=== PATIENT | female | born 1960 | race Caucasian/White ===

== ENCOUNTER → 2018-05-12 11:35 | Outpatient (CLI) | payer OTHER, SELFPAY ==
[2018-05-27 10:30] LABS: HPV APTIMA, High Risk Negative; HPV Reflexed? YES, CHARGE PATIENT
== END ==
PROVIDERS: Family Provider Family Medicine; PCP Family Medicine; Visit Provider Obstetrics & Gynecology
DX: Z12.4 Encounter for screening for malignant neoplasm of cervix (principal)
CPT/HCPCS: 87624; 88175; G0145

== ENCOUNTER → 2018-06-17 07:54 | Outpatient (CLI) | payer OTHER, SELFPAY ==
--- NOTE | 2018-06-17 07:57 | BI_ITS ---
MAMMOGRAPHY - BILATERAL SCREENING REASON FOR EXAM: Female, 57 years old. Routine annual screening examination. PERTINENT HISTORY: Non-contributory. TECHNIQUE: Digital bilateral breast tosin (3D mammographic acquisition) in the CC and MLO projections. 2-D mediolateral oblique (MLO) and craniocaudad (CC) views of both breasts were obtained. CAD: Full Field Digital Mammography with Computer Added Detection was performed. COMPARISON: Comparison is made with prior study dated May 14, 2017 and March 27, 2016. FINDINGS: Breast Composition: There are scattered areas of fibroglandular density. There are no dominant masses or suspicious calcifications. Stable benign-appearing bilateral axillary lymph nodes. No other significant abnormalities are identified. There has been no significant change since the prior study. BI/SCREENING MAMM (CAD), BILAT IMPRESSION: Stable bilateral screening mammogram. Yearly follow-up mammogram recommended. (A) ASSESSMENT CATEGORY: BIRADS Category 2: Benign. A letter regarding these results will be sent to the patient by the facility within 30 days. Approximately 10% of breast cancers are not detected by mammography. A normal mammogram should not delay biopsy of a clinically suspicious abnormality. [id number] Electronically Signed: Juni Harris MD at 14:02 EST Tel [phone], Service support ,
== END ==
PROVIDERS: Family Provider Family Medicine; PCP Family Medicine; Referring Provider Obstetrics & Gynecology; Visit Provider Obstetrics & Gynecology
DX: Z12.31 Encounter for screening mammogram for malignant neoplasm of breast (principal)
CPT/HCPCS: 77063; 77067

== ENCOUNTER 2018-06-28 17:25 | Emergency (ER) | payer OTHER, SELFPAY ==
[2018-06-28 17:26] VITALS: BP 144/70; PULSE 77; RESP 18; TEMP 36.4; O2SAT 98; BMI 26.6
--- NOTE | 2018-06-28 18:18 | CT_ITS ---
STUDY: CT FACIAL BONES WITHOUT CONTRAST REASON FOR EXAM: Female, 57 years old. Trauma RADIATION DOSAGE (If Supplied By Facility): CTDIvol = ( 29.38 ) mGy, DLP = ( 576.84 ) mGycm TECHNIQUE: The patient was scanned in a multi detector CT scanner. Sagittal and coronal images were reconstructed. Individualized dose optimization techniques were used for this CT. COMPARISON: None. FINDINGS: Normal soft tissue structures. There are postsurgical changes of the orbits.. Minimally displaced fractures of the nasal bones with soft tissue swelling. Normal anterior nasal spine. There is mucosal thickening within the hypoplastic maxillary sinuses as well as diffuse mucosal thickening of the ethmoid and frontal sinuses. CT/Sinus/Facial Bone IMPRESSION: Minimally depressed fractures of the nasal bones. No other acute facial bone fracture Electronically Signed: Ankit Alanis MD at 19:11 EST , Service support ,
[2018-06-28] MEDS: Diphth,Pertuss(Acell),Tet Vac 0.5 ML Vial IM (19:06)
--- NOTE | 2018-06-28 20:15 | ED.DCSUM_ITS ---
- ER Visit Summary Date of Service: 06/28/18 Chief Complaint: Facial injury History of Present Illness: The patient is a 57 F who had taken her dog out on his leash. When the dog saw the patient's he ran for him, pulling the patient forward and causing her to fall on the pavement. She complains of facial injury. She did not lose consciousness. She is not on anticoagulants. Physical Examination: Vital signs are unremarkable. Head neck examination reveals abrasions to the central forehead. She has moderate nasal edema. There is dried blood in the bilateral nares without septal hematoma. No C-spine tenderness is noted. Heart is regular rate and rhythm. Lungs sounds clear. Abdomen is soft nontender. Neuro exam is normal. Extremity examination was a superficial abrasion to the anterior right knee without bony tenderness. Test Results: CT the facial bones reveals minimally displaced fractures of the nasal bones. No other acute fracture noted. Emergency Department Course and Treatment: Patient has tetanus update provided. Because she did have epistaxis after her fall with nasal bone injury she will be covered with antibiotics, first dose given here. She will follow-up with ENT after swelling improves if she has cosmetic or wheezing concerns. Treatment Plan: [] Disposition: Discharge Impression: 1. Mechanical fall 2. Nasal bone fracture This note was generated with [employer] dictation software. It may contain incorrect words, spelling, and punctuation that were not noted in review of the chart prior to signing ED Disposition - Plan for ED Patient: Disposition: Home or Assisted Living Chief Complaint: Fall Instructions: ED Mechanical Fall, ED Fx Nasal Conf W X Ray Prescriptions: Cephalexin [Keflex] 500 mg PO Q6 #40 capsule Referrals: Darrell Tovar MD [STAFF PHYSICIAN] - As Needed
[2018-06-28] MEDS: Cephalexin 250 MG Capsule 500 MG PO (20:20)
[2018-06-28 20:23] VITALS: BP 124/78; PULSE 63; RESP 18; O2SAT 95
== END 2018-06-28 20:24 | disposition home or self-care (01) ==
PROVIDERS: Emergency Provider Emergency Medicine; Family Provider Family Medicine; PCP Family Medicine
DX: S02.2XXA Fracture of nasal bones, initial encounter for closed fracture (principal); W18.30XA Fall on same level, unspecified, initial encounter; Y93.K1 Activity, walking an animal; Y92.9 Unspecified place or not applicable; Y99.9 Unspecified external cause status; J45.909 Unspecified asthma, uncomplicated
CPT/HCPCS: 70486; 90471; 90715; 99283

== ENCOUNTER → 2019-06-30 15:32 | Outpatient (CLI) | payer OTHER, SELFPAY ==
--- NOTE | 2019-06-30 15:35 | RAD_ITS ---
STUDY: X-RAY - LEFT FOOT CLINICAL: Female, 58 years old. For a few weeks, no history of injury. TECHNIQUE: 3 view(s) of the foot. COMPARISON: None. FINDINGS: There is demineralization of the rear and midfoot bones. There is a plantar calcaneal spur. Normal visualized subtalar, talonavicular, calcaneocuboid, tarsal and tarsometatarsal articulations. There is demineralization of the metatarsi. Normal metatarsophalangeal joint of the great toe. Normal tibial and fibular sesamoid bones. Normal interphalangeal joint of the great toe. Normal phalanges of the great toe. Normal second through fifth metatarsophalangeal joints. Narrowing of the interphalangeal joints otherwise normal phalanges of the lesser toes. The soft tissue structures are unremarkable. There is no demonstrated fracture. RAD/Foot min 3 Views IMPRESSION: Diffuse osteopenia along with mild degenerative disease as described above. Plantar calcaneal spur. No acute fracture or subluxation. Electronically Signed: Arlette Canseco MD at 7:24 EST , Service support ,
== END ==
PROVIDERS: Family Provider Family Medicine; PCP Family Medicine; Referring Provider Family Medicine; Visit Provider Family Medicine
DX: M79.672 Pain in left foot (principal)
CPT/HCPCS: 73630

== ENCOUNTER → 2019-07-21 07:34 | Outpatient (CLI) | payer OTHER, SELFPAY ==
--- NOTE | 2019-07-21 07:36 | BI_ITS ---
MAMMOGRAPHY - BILATERAL SCREENING REASON FOR EXAM: Female, 58 years old. Routine annual screening examination. PERTINENT HISTORY: Non-contributory. TECHNIQUE: Digital bilateral breast maría elena (3D mammographic acquisition) in the CC and MLO projections. 2-D mediolateral oblique (MLO) and craniocaudad (CC) views of both breasts were obtained. CAD: Full Field Digital Mammography with Computer Added Detection was performed. COMPARISON: Comparison is made with prior examination dated June 17, 2018 and May 14, 2017. FINDINGS: Breast Composition: There are scattered areas of fibroglandular density. There are no dominant masses or suspicious calcifications. Stable benign-appearing right axillary lymph nodes. No other significant abnormalities are identified. There has been no significant change since the prior study. BI/SCREEN MAMM (CAD) W/MARÍA ELENA BILAT IMPRESSION: Stable bilateral screening mammogram. Yearly follow-up mammogram recommended. (A) ASSESSMENT CATEGORY: BIRADS Category 2: Benign. A letter regarding these results will be sent to the patient by the facility within 30 days. Approximately 10% of breast cancers are not detected by mammography. A normal mammogram should not delay biopsy of a clinically suspicious abnormality. [id number] Electronically Signed: Juni Harris, at 9:11 EST , Service support ,
== END ==
PROVIDERS: Family Provider Family Medicine; PCP Family Medicine; Referring Provider Obstetrics & Gynecology; Visit Provider Obstetrics & Gynecology
DX: Z12.31 Encounter for screening mammogram for malignant neoplasm of breast (principal)
CPT/HCPCS: 77063; 77067

== ENCOUNTER → 2019-10-27 | Outpatient (CLI) | payer OTHER, SELFPAY ==
--- NOTE | 2019-10-27 10:13 | RAD_ITS ---
STUDY: X-RAY CHEST REASON FOR EXAM: Female, 59 years old. COUGH AND SOB X 2 WEEKS. TECHNIQUE: PA and lateral views of the chest. COMPARISON: None. FINDINGS: Hyperinflation. Minimal increase in markings at the left lung base suggestive of linear atelectasis and/or scarring. Calcified granulomas. There is no demonstrated pleural abnormality. Normal size heart. Normal mediastinum and peg. Normal visualized pulmonary arteries. Normal visualized aortic arch and descending thoracic aorta. Normal visualized thoracic spine. Normal visualized ribs, clavicles, and shoulders. There is no demonstrated abnormality of the visualized soft tissue structures of the upper abdomen. RAD/Chest PA and Lateral IMPRESSION: Hypoinflation. Mild increased linear marking at the left lung base suggestive of linear atelectasis and/or scarring. Electronically Signed: Juni Harris, at 10:42 EDT , Service support ,
== END | disposition home or self-care (01) ==
LOC: MTRAD 10:12
PROVIDERS: PCP Family Medicine; Referring Provider Family Medicine; Visit Provider Family Medicine
DX: J45.901 Unspecified asthma with (acute) exacerbation (principal)
CPT/HCPCS: 71046

== ENCOUNTER → 2020-07-11 | Outpatient (CLI) | payer OTHER, SELFPAY ==
[2020-07-16 09:51] LABS: HPV Reflexed? NOT INDICATED
== END | disposition home or self-care (01) ==
LOC: LABSPEC 15:25
PROVIDERS: PCP Family Medicine; Visit Provider Obstetrics & Gynecology
DX: Z12.4 Encounter for screening for malignant neoplasm of cervix (principal)
CPT/HCPCS: 88175; G0145

== ENCOUNTER → 2020-08-30 13:53 | Outpatient (CLI) | payer OTHER, SELFPAY ==
--- NOTE | 2020-08-30 13:55 | BI_ITS ---
MAMMOGRAPHY - BILATERAL SCREENING REASON FOR EXAM: Female, 59 years old. Routine annual screening examination. PERTINENT HISTORY: Non-contributory. TECHNIQUE: Digital bilateral breast maría elena (3D mammographic acquisition) in the CC and MLO projections. 2-D mediolateral oblique (MLO) and craniocaudad (CC) views of both breasts were obtained. CAD: Full Field Digital Mammography with Computer Added Detection was performed. COMPARISON: Comparison is made with prior study dated 07/21/2019 and 06/17/2018. FINDINGS: Breast Composition: There are scattered areas of fibroglandular density. There are no dominant masses or suspicious calcifications. There is a 4.3 mm x 2.8 cm well-defined nodule in the deep upper lateral aspect of the right breast a central notch suggestive of a small lymph node. No other significant abnormalities are identified. There has been no significant change since the prior study. BI/SCRN MAMM (CAD)W/MARÍA ELENA BILAT IMPRESSION: Stable bilateral screening mammogram. Yearly follow-up mammogram recommended. (A) ASSESSMENT CATEGORY: BIRADS Category 2: Benign. A letter regarding these results will be sent to the patient by the facility within 30 days. Approximately 10% of breast cancers are not detected by mammography. A normal mammogram should not delay biopsy of a clinically suspicious abnormality. [id number] Electronically Signed: Juni Harris MD at 14:40 EST , Service support ,
== END ==
PROVIDERS: PCP Family Medicine; Referring Provider Obstetrics & Gynecology; Visit Provider Obstetrics & Gynecology
DX: Z12.31 Encounter for screening mammogram for malignant neoplasm of breast (principal)
CPT/HCPCS: 77063; 77067

== ENCOUNTER 2020-08-30 21:57 | Emergency (ER) | payer OTHER, SELFPAY ==
[2020-08-30 21:57] VITALS: BP 128/73; PULSE 79; RESP 18; TEMP 35.8; O2SAT 96; BMI 25.4
[2020-08-30] MEDS: Morphine 4 MG/ML Syringe IV ×2 (22:15→23:12)
[2020-08-30] MEDS: Ondansetron 4 MG/2 ML Vial IV ×2 (22:17→23:12)
[2020-08-30] MEDS: 0.9% Normal Saline 1,000 ML 250 ML IV (22:22)
--- NOTE | 2020-08-30 22:50 | ED.VISSUMM ---
- ER Visit Summary Date of Service: 08/30/20 Chief Complaint: Left flank pain History of Present Illness: The patient is a [address] Ott. She reports that at 9:00 this evening she had abrupt onset of a left flank pain that radiates into the left lower quadrant. 10 a 10 at worst 9-10 currently. Worsened by nothing relieved by nothing. She is been nausea and vomited twice. No blood in her emesis. No diarrhea. She has had dysuria since this began. States this is similar to when she had kidney stones in the past. Physical Examination: Vitals: Stable. Afebrile. General: Well-nourished and well-developed. Head: Normocephalic atraumatic. Neck: Supple, no lymphadenopathy. No JVD. Nontender. Cardiovascular: Regular rate and rhythm. No murmurs. Respiratory: No respiratory distress. Clear to auscultation bilaterally. Abdominal: Soft, mild left lower quadrant tenderness to palpation, nondistended, normal bowel sounds. No guarding, rebound, or peritoneal signs. Back: Nontender. Extremities: Nontender, no edema. Skin: Normal color, no rash. Neurologic: Alert and oriented ?3. Cranial nerves II through XII are intact. Normal strength and sensation. Psych: Normal affect. Test Results: Urinalysis shows 25-50 red blood cells, occult blood, leukocyte esterase. Clinical Impression(s) from Imaging Studies Abdomen/Pelvis CT 08/30/20 23:02 IMPRESSION: Mild left hydronephrosis and proximal left ureter. Stone in the left upper ureter as above. Nonvisualized spleen. Remainder is within normal limits. Electronically Signed: Martin Carrillo DO at 23:24 EST Tel , Service support , Emergency Department Course and Treatment: Patient had an IV placed. She was given Toradol, morphine and Zofran IV. She is resting more comfortably. Treatment Plan: Patient will be discharged with naproxen, Percocet, and Zofran. Instructed to follow-up with Dr. Patel in 1 week if she has not passed the stone. Return to the emergency department for any worsening symptoms. Disposition: To home in improved and stable condition. Impression: 1. Left ureterolithiasis. This note was generated with [employer] dictation software. It may contain incorrect words, spelling, and punctuation that were not noted in review of the chart prior to signing ED Disposition - Plan for ED Patient: Instructions: ED Kidney Stone w/ Colic Prescriptions: Naproxen [Naprosyn] 500 mg PO BID #14 tab Oxycodone HCl/Acetaminophen [Percocet 5/325] 1 tab PO Q6H PRN PRN 5 Days #20 tab PRN Reason: Pain Score 6-10 Ondansetron [Zofran Odt] 4 mg PO Q8H PRN PRN #10 tab PRN Reason: Nausea Referrals: Ignacio Patel MD [STAFF PHYSICIAN] - 1 Week if not improving
--- NOTE | 2020-08-30 23:02 | CT_ITS ---
STUDY: CT ABDOMEN AND PELVIS WITHOUT CONTRAST REASON FOR EXAM: Female, 59 years old. LEFT FLANK PAIN STARTED TONIGHT. HX OF [place] RADIATION DOSAGE (If Supplied By Facility): CTDIvol = ( 7.69 ) mGy, DLP = ( 399.54 ) mGycm TECHNIQUE: Transaxial images were obtained from the dome of the diaphragm to the symphysis pubis without oral contrast, and without intravenous contrast. Sagittal and coronal images were reconstructed. Individualized dose optimization techniques were used for this CT. COMPARISON: None. FINDINGS: The visualized lung bases are unremarkable. The visualized portions of the heart are within normal limits. Normal liver. Normal gallbladder and extrahepatic biliary system. Nonvisualized spleen. Normal pancreas. Normal bilateral adrenal glands. Normal right kidney. Mild left hydronephrosis and left ureter. Stone in the upper left ureter measuring 4.9 mm. Normal visualized stomach. Normal small intestine. Normal colon. The appendix is visualized and appears normal. Normal abdominal aorta. Normal inferior vena cava. Normal retroperitoneum. Normal urinary bladder. Normal visualized uterus. Normal abdominal wall. Normal osseous structures. CT/Abdomen/Pelvis without Cont IMPRESSION: Mild left hydronephrosis and proximal left ureter. Stone in the left upper ureter as above. Nonvisualized spleen. Remainder is within normal limits. Electronically Signed: Martin Carrillo DO at 23:24 EST Tel , Service support ,
[2020-08-30 23:19] VITALS: BP 117/73; PULSE 71; RESP 20; O2SAT 97
[2020-08-30 23:31] LABS: Bacteria 0 SEEN /hpf (None Seen); Mucous, Urine 0 SEEN /hpf (<or=2+)
[2020-08-30] MEDS: Ketorolac 15 MG/ML Vial IV (23:33)
[2020-08-30 23:42] LABS: Color, Urine Yellow (Yellow); Glucose, Dipstick Normal (Normal); Ketone-Dipstick Negative (Negative); Leukocyte Esterase-Dipstick 100 /ul (Negative); Nitrite-Dipstick Negative (Negative); Occult Blood-Urine 250 /ul (Negative); Protein-Dipstick Negative (Negative); Urine Bilirubin Dipstick Negative (Negative); Urine Clarity Sl. Cloudy (Clear); Urine Urobilinogen Normal (Normal)
[2020-08-30 23:53] LABS: Red Blood Cells-Urine 25-50 SEEN /hpf (0-5); Squamous Epithelial Cells - UA 0-5 SEEN /hpf (5-10); White Blood Cells 0-5 SEEN /hpf (0-5)
[2020-08-31 00:11] VITALS: BP 107/70; PULSE 70; RESP 16; O2SAT 99
== END 2020-08-31 00:15 | disposition home or self-care (01) ==
LOC: ED 23:12
PROVIDERS: Emergency Provider Emergency Medicine; PCP Family Medicine
DX: N13.2 Hydronephrosis with renal and ureteral calculous obstruction (principal); J45.909 Unspecified asthma, uncomplicated; Z87.442 Personal history of urinary calculi; Z79.51 Long term (current) use of inhaled steroids
CPT/HCPCS: 74176; 81001; 96361; 96374; 96375; 96376; 99282; J7030; A4216; J2405

== ENCOUNTER → 2020-10-22 12:16 | Outpatient (CLI) | payer OTHER, SELFPAY ==
--- NOTE | 2020-10-22 12:27 | RAD_ITS ---
STUDY: X-RAY - ABDOMEN/PELVIS REASON FOR EXAM: Female, 60 years old. URINARY CALCULUS TECHNIQUE: Single AP view of the abdomen / pelvis. COMPARISON: Comparison is made with prior study of 04/23/2016. FINDINGS: Mild increased markings at the left lung base suggestive of either linear atelectasis and/or scarring. There is a moderate amount of colonic fecal material. The visualized liver, spleen and kidneys are grossly normal in size and morphology. Normal soft tissue structures. There are degenerative changes of the visualized lumbar spine. RAD/Abdomen Single View IMPRESSION: Moderate amount of fecal material is seen in the colon. Electronically Signed: Juni Harris MD at 10:01 EDT , Service support ,
[2020-10-22 15:27] LABS: Absolute Lymphocyte Count 2.86 X10^3/uL (0.83-4.51); Absolute Neutrophil Count 3.7 X10^3/uL (2.0-7.7); Basophil# 0.09 X10^3/uL; Basophil% 1.1 % (0-1); Eosinophil# 0.73 X10^3/uL; Eosinophils% 8.9 % (0-5); Hematocrit 41.6 % (37-47); Hemoglobin 13.7 g/dL (12.0-15.0); Lymphocyte # 2.86 X10^3/ul (4.0); Lymphocyte % 34.8 % (19-41); Mean Corp Hgb Conc 32.9 g/dL (32-36); Mean Corpuscular Hgb 31.3 pg (27.0-32.0); Mean Platelet Vol. 10.8 fl (6.2-12.0); Monocyte% 9.7 % (0-10); NRBC Flagged by Analyzer 0 % (0-5); Neutrophil # 3.72 X10^3/uL (2.7-7.7); Neutrophil % 45.4 % (47-70); Platelet Count 516 K/mm3 (150-450); RBC Distribution Width CV 12.8 % (11.6-14.6); RBC Distribution Width SD 44.1 fl (35.1-43.9); Red Blood Count 4.38 M/mm3 (4.2-5.4); White Blood Count 8.2 K/mm3 (4.4-11.0)
[2020-10-22 15:53] LABS: ALB/GLOB Ratio 1.2 RATIO (0.9-2.4); AST(SGOT) 30 U/L (15-37); Alanine Aminotransfer ALT/SGPT 23 U/L (13-56); Alkaline Phosphatase 82 U/L (45-117); Anion Gap 6 (5-15); BUN 12 mg/dL (7-18); BUN/Creat Ratio 18.9 RATIO (10-20); Chloride 104 mmol/L (98-107); Cholesterol 189 mg/dL (200); Creatinine, Serum 0.64 mg/dL (0.55-1.02); EST Glomerular Filtration Rate 101 mL/min (>60); Est Glom Filt Rate - Afr Amer 122 mL/min (>60); Globulin 3.2 g/dL (2.2-4.2); Glucose 83 mg/dL (74-106); High Density Lipoprotein 81 mg/dL; Potassium 4.1 mmol/L (3.5-5.1); Protein, Total 7.2 g/dL (6.4-8.2); Sodium Level 139 mmol/L (136-145); Triglycerides 74 mg/dL; Very Low Density Lipoprotein 15 mg/dL (5-40)
== END ==
PROVIDERS: PCP Family Medicine; Referring Provider Family Medicine; Visit Provider Family Medicine
DX: N20.9 Urinary calculus, unspecified (principal); J45.40 Moderate persistent asthma, uncomplicated; Z13.220 Encounter for screening for lipoid disorders
CPT/HCPCS: 36415; 74018; 80053; 80061; 85025

== ENCOUNTER → 2020-10-24 14:22 | Outpatient (CLI) | payer OTHER, SELFPAY | PROVIDERS: PCP Family Medicine; Referring Provider Nurse Practitioner Adult Health; Visit Provider Nurse Practitioner Adult Health | DX: R35.0 Frequency of micturition (principal) | CPT/HCPCS: 87086; 87088 ==

== ENCOUNTER → 2020-11-14 15:04 | Outpatient (CLI) | payer OTHER, SELFPAY ==
--- NOTE | 2020-11-14 15:11 | CT_ITS ---
STUDY: CT ABDOMEN AND PELVIS WITHOUT CONTRAST REASON FOR EXAM: Female, 60 years old. CALCULUS OF URETER RADIATION DOSAGE (If Supplied By Facility): CTDIvol = ( 6.73 ) mGy, DLP = ( 302.60 ) mGycm TECHNIQUE: Transaxial images were obtained from the dome of the diaphragm to the symphysis pubis without oral contrast, and without intravenous contrast. Sagittal and coronal images were reconstructed. Individualized dose optimization techniques were used for this CT. COMPARISON: 08/30/2020 FINDINGS: The visualized lung bases are unremarkable. The visualized portions of the heart are within normal limits. Normal liver. Normal gallbladder and extrahepatic biliary system. 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 Normal pancreas. Normal bilateral adrenal glands. Normal right kidney. Normal left kidney. Normal visualized stomach. Normal small intestine. Normal colon. The appendix is visualized and appears normal. Normal abdominal aorta. Normal inferior vena cava. Normal retroperitoneum. Normal urinary bladder. Normal abdominal wall. Normal osseous structures. CT/Abdomen/Pelvis without Cont IMPRESSION: Normal unenhanced CT of the abdomen and pelvis. No renal or ureteral stone. Electronically Signed: Pete Deras MD at 16:00 EDT Tel , Service support ,
== END ==
PROVIDERS: PCP Family Medicine; Visit Provider Urology
DX: N20.1 Calculus of ureter (principal)
CPT/HCPCS: 74176

== ENCOUNTER 2021-10-17 08:13 | Outpatient (CLI) | payer OTHER, SELFPAY ==
--- NOTE | 2021-10-17 08:32 | BI_ITS ---
MAMMOGRAPHY - BILATERAL SCREENING REASON FOR EXAM: Female, 61 years old. Routine annual screening examination. PERTINENT HISTORY: Non-contributory. TECHNIQUE: Digital bilateral breast maría elena (3D mammographic acquisition) in the CC and MLO projections. 2-D mediolateral oblique (MLO) and craniocaudad (CC) views of both breasts were obtained. CAD: Full Field Digital Mammography with Computer Added Detection was performed. COMPARISON: Comparison is made with prior study dated 08/30/2020 and 07/21/2019. FINDINGS: Breast Composition: There are scattered areas of fibroglandular density. There are no dominant masses or suspicious calcifications. Stable 4.3 mm x 2.8 mm well-defined nodule in the upper lateral aspect of the right breast. This most likely represents a small benign appearing lymph node. No other significant abnormalities are identified. There has been no significant change since the prior study. BI/SCRN MAMM (CAD)W/MARÍA ELENA BILAT IMPRESSION: Stable bilateral screening mammogram. Yearly follow-up mammogram recommended. (A) ASSESSMENT CATEGORY: BIRADS Category 2: Benign. A letter regarding these results will be sent to the patient by the facility within 30 days. Approximately 10% of breast cancers are not detected by mammography. A normal mammogram should not delay biopsy of a clinically suspicious abnormality. [id number] Electronically Signed: Juni Harris MD at 9:29 EST ,
== END 2021-10-17 23:59 | disposition home or self-care (01) ==
LOC: OPBI 08:30
PROVIDERS: PCP Family Medicine; Referring Provider Obstetrics & Gynecology; Visit Provider Obstetrics & Gynecology
DX: Z12.31 Encounter for screening mammogram for malignant neoplasm of breast (principal)
CPT/HCPCS: 77063; 77067

== ENCOUNTER → 2022-10-01 | Outpatient (CLI) | payer OTHER, SELFPAY ==
[2022-10-08 18:14] LABS: HPV APTIMA, High Risk Negative (Negative)
== END | disposition home or self-care (01) ==
LOC: LABSPEC 14:15
PROVIDERS: PCP Family Medicine; Visit Provider Obstetrics & Gynecology
DX: Z12.4 Encounter for screening for malignant neoplasm of cervix (principal)
CPT/HCPCS: 87624; 88175; G0145

== ENCOUNTER → 2022-10-23 | Outpatient (CLI) | payer OTHER, SELFPAY ==
--- NOTE | 2022-10-23 10:30 | BI_ITS ---
MAMMOGRAPHY - BILATERAL SCREENING 3-D TOMOSYNTHESIS REASON FOR EXAM: Female, 62 years old. Routine screening PERTINENT HISTORY: No significant family history. TECHNIQUE: 2-D mammograms and 3-D Tomosynthesis of the breast (s) were performed. CAD was performed. COMPARISON: 10/17/2021 FINDINGS: The breast composition is composed of scattered fibroglandular density. Scattered benign calcifications are seen. No dense spiculated masses or suspicious microcalcifications are identified. No architectural distortion is identified. There is no skin thickening or retraction. There has been no significant change since the prior study. BI/SCRN MAMM (CAD)W/MARÍA ELENA BILAT IMPRESSION: No mammographic signs of malignancy. Routine yearly mammograms recommended. ASSESSMENT CATEGORY: BIRADS Category 2: Benign. A letter regarding these results will be sent to the patient by the facility within 30 days. FOLLOW UP RECOMMENDATION: Yearly follow up mammogram recommended. (A) Approximately 10% of breast cancers are not detected by mammography. A normal mammogram should not delay biopsy of a clinically suspicious abnormality. Electronically Signed: Luis Estrada MD at 12:11 EDT ,
== END | disposition home or self-care (01) ==
LOC: OPBI 10:29
PROVIDERS: PCP Family Medicine; Referring Provider Obstetrics & Gynecology; Visit Provider Obstetrics & Gynecology
DX: Z12.31 Encounter for screening mammogram for malignant neoplasm of breast (principal)
CPT/HCPCS: 77063; 77067

== ENCOUNTER 2022-12-10 08:45 | Day surgery (SDC) | payer OTHER, SELFPAY ==
[2022-12-10] VITALS (7 sets, daily range): BP systolic 80–104; BP diastolic 43–64; PULSE 60–81; RESP 16–18; TEMP 36.2–36.6; O2SAT 99–100; BMI 24.2
[2022-12-10] MEDS: Lactated Ringers 1,000 ML 15 ML IV (09:23)
--- NOTE | 2022-12-10 09:34 | HP.PCM_ITS ---
HPI - General General Date of Admission: 12/10/22 Date of Service: 12/10/22 Chief Complaint: Screening colonoscopy HPI Narrative MYRIAM STEVENS, is a 62 F who presents today for a surveillance colonoscopy. She had a colonoscopy approximately 5 years ago and was discovered to have a few polyps that were adenomatous. She did not have any other abnormalities that were seen on that optical colonoscopy. She does not have any abdominal pain. She denies any cramping. She does not have any chest pain shortness of breath. Overall she is in very good health. COUNT INCLUDES THE [facility] Medical History (Updated 12/07/22 @ 15:22 by Alba Alvares) Allergic rhinitis, unspecified Asthma COVID-19 Gastric reflux History of colon polyps History of shingles History of steroid therapy History of urinary calculi Insomnia, unspecified Kidney stones Moderate persistent asthma, uncomplicated Post-menopausal Wears contact lenses Home Medications albuterol sulfate 90 mcg/actuation aerosol inhaler (Ventolin HFA) 1 - 2 puff inhalation Q4H PRN PRN Shortness Of Breath 03/26/15 [History Last Taken 06/19/16 05:00] montelukast 10 mg tablet 10 mg PO DAILY 01/16/16 [History Last Taken Unknown] multivitamin with folic acid 400 mcg tablet (Thera) 1 tab PO DAILY 01/16/16 [History Last Taken Unknown] trazodone 50 mg tablet 50 mg PO QHS 08/30/20 [History Last Taken Unknown] tiotropium bromide 18 mcg capsule with inhalation device (Spiriva with HandiHaler) 1 cap inhalation DAILY 01/06/22 [History Last Taken Unknown] fluticasone 250 mcg-salmeterol 50 mcg/dose blistr powdr for inhalation (Advair Diskus) 2 inh inhalation BID 12/07/22 [History Last Taken 12/10/22 06:15] Allergy/AdvReac Type Severity Reaction Status Date / Time prednisone AdvReac Other Verified 12/10/22 09:09 Family History Grandmother Alzheimer disease Heart disease Grandfather Lung cancer Mother Heart disease Father CVA (cerebral vascular accident) Surgical History (Updated 12/07/22 @ 15:22 by Alba Alvares) History of extraction of renal calculus History of splenectomy History of tonsillectomy and adenoidectomy History of tubal ligation Hx of cataract extraction Hx of section Hx of colonoscopy Hx of nasal polypectomy Social History (Updated 10/02/22 @ 08:13 by Lizeth Shaver) household members: spouse Smoking Status: Never smoker alcohol intake: never ROS Review of Systems ROS Unobtainable: other Constitutional Constitutional: Denies fatigue, fever(s), poor appetite, weight gain or weight loss ENT HEENT: Denies mouth lesions Cardiovascular Cardiovascular: Denies abdominal bloating, abdominal edema or abdominal pain Respiratory/Chest Respiratory/Chest: Denies change in mental status, change in phlegm color, chest congestion or chest tightness Gastrointestinal Gastrointestinal: Denies belching, bloating, change in bowel habits, change in stool character, chewing difficulty, coffee ground emesis, constipation, cramping, diarrhea, dyspepsia, dysphagia, early satiety, excessive flatus, fecal incontinence, heartburn, hematemesis, hematochezia, hemorrhoids, loose stools, melena, nausea, odynophagia, rectal bleeding, tenesmus, vomiting or weight changes Genitourinary Genitourinary: Denies abdominal discomfort, burning urination or itching Musculoskeletal Musculoskeletal: Reports as per HPI; Denies muscle weakness or myalgias Integumentary Integumentary: Denies jaundice Neurologic Neurologic: Denies lack of coordination or weakness Psychiatric Psychiatric: Denies confusion, depression, memory loss, mood swings, paranoia or suicidal ideation Endocrine Endocrinology: Denies systems reviewed and no addt'l complaints, except as documented Hematologic/Lymphatic Hematologic/Lymphatic: Denies anemia, easy bleeding, easy bruising or lymphadenopathy Allergic/Immunologic Allergic/Immunologic: Denies systems reviewed and no addt'l complaints, except as documented Vital Signs Vital Signs Vital Signs: 12/10/22 09:11 12/10/22 09:12 Temperature 97.7 F L Temperature Source Temporal Pulse Rate 78 Respiratory Rate 18 Respiratory Pattern Normal Blood Pressure 92/56 L Blood Pressure Mean 68 Blood Pressure Source Monitor Blood Pressure Position Semi-Fowlers Blood Pressure Location Right Arm Pulse Ox 100 Oxygen Delivery Method Room Air Weight Weight: 124 lb Body Mass Index (BMI) 24.2 Physical Exam Const alert General Appearance: cooperative Orientation / Consciousness: oriented to person HEENT hearing grossly normal bilaterally Head and Scalp: normal to inspection Face and Sinus: face symmetric Nose: external nose normal Mouth: oral and palatal mucosa normal Eyes conjunctivae normal General Eye: normal appearance of both eyes Neck full ROM General: normal visual inspection Lymph Lymphatic: no lymphadenopathy noted Chest inspection of chest normal and palpation of chest normal Chest: symmetrical chest wall rise Resp normal respiratory effort Effort and Inspection: able to speak in complete sentences Cardio regular rate GI non-distended Percussion: normal to percussion Rectal Exam: deferred Neuro Speech: speech normal Gait (Neuro): normal gait Assessment & Plan Assessment/Plan (1) Encounter for screening for malignant neoplasm of colon: PLAN: She was explained alternatives, risk, benefits including not withstanding bleeding, infection, sepsis, perforation, need for emergent surgery . She will have an ASA of 2.
--- NOTE | 2022-12-10 10:00 | COLBX_PTH ---
PATIENT: MYRIAM STEVENS LOC: [facility] U#:[id number] AGE/SX: 62/F ROOM: RE12/10/[address]: Dr. Cristofer Young DO : 1960 BED: DIS: 12/10/2022 SPEC #: [id number] RECD: 12/10/22 14:53 STATUS: JOSÉ MANUEL REEvi #: [id number] JUAN: 12/10/22 10:[address]: Cristofer Young DEPT: SURGICAL PATHOLOGY RECD BY: Kassandra Collado ENTERED: 12/11/22 12:30 SP TYPE: COLON BX OTHR DR: Pattie Micehle DO Tissues: A - COLON BIOPSY B - Cecum, NOS C - Transverse colon D - Sigmoid colon biopsy E - Rectum, NOS Procedures: Surgery Specimen Level IV HEADER OPERATION: Colonoscopy with biopsies ? open access (MAC) PRE-OP DIAGNOSIS: Screening TISSUE SUBMITTED: A ? Hepatic flexure polyp biopsy, B ? Cecum polyp biopsy, C ? Transverse colon biopsy, D ? Sigmoid colon biopsy, E ? Rectal polyp biopsy MICROSCOPIC DIAGNOSIS A. Hepatic flexure polyp, biopsy: Tubular adenoma. B. Cecum polyp, biopsy: Fragments of tubular adenoma. C. Transverse colon, biopsy: Fragments of colonic mucosa, no pathologic diagnosis. D. Sigmoid colon, biopsy: Tubular adenoma. E. Rectal polyp, biopsy: Fragments of tubular adenoma. SJ:keri 12/14/2022 MICROSCOPIC DESCRIPTION Slides are reviewed. GROSS DESCRIPTION A - Received in fixative is one container labeled with the patient's name and designated hepatic flexure polyp biopsy. The specimen consists of two irregular fragments of light warren soft tissue that in aggregate measure 0.6 x 0.3 x 0.1 cm. The specimen is totally submitted in one cassette. B - Received in fixative is one container labeled with the patient's name and designated cecum polyp biopsy. The specimen consists of multiple irregular fragments of light warren soft tissue that in aggregate measure 1.5 x 0.3 x 0.1 cm. The specimen is totally submitted in one cassette. C - Received in fixative is one container labeled with the patient's name and designated transverse colon biopsy. The specimen consists of one irregular fragment of light warren soft tissue that measures 0.6 x 0.2 x 0.1 cm. The specimen is totally submitted in one cassette. D - Received in fixative is one container labeled with the patient's name and designated sigmoid colon biopsy. The specimen consists of one irregular fragment of light warren soft tissue that measures 0.3 x 0.3 x 0.1 cm. The specimen is totally submitted in one cassette. E - Received in fixative is one container labeled with the patient's name and designated rectal polyp biopsy. The specimen consists of two irregular fragments of light warren soft tissue that in aggregate measure 0.6 x 0.3 x 0.1 cm. The specimen is totally submitted in one cassette. / SJ:rg 12/11/2022 TC:1 CPT: 25414 x5
--- NOTE | 2022-12-10 10:39 | OP.COLON_ITS ---
Patient Name: Lydia Mariee Procedure Date: 12/10/2022 9:55 AM Date of : 1960 Age: 62 Procedure: Colonoscopy Indications: High risk colon cancer surveillance: Personal history of colonic polyps Providers: Cristofer Young DO Medicines: Monitored Anesthesia Care Patient Profile: This is a 62 year old female. Refer to note in patient chart for documentation of history and physical. Last Colonoscopy: 5 years ago. Complications: No immediate complications. Procedure: Pre-Anesthesia Assessment: - Prior to the procedure, a History and Physical was performed, and patient medications and allergies were reviewed. The risks and benefits of the procedure and the sedation options and risks were discussed with the patient. All questions were answered and informed consent was obtained. Patient identification and proposed procedure were verified by the physician in the pre-procedure area. Mental Status Examination: alert and oriented. Airway Examination: normal oropharyngeal airway and neck mobility. Respiratory Examination: clear to auscultation. CV Examination: normal. Prophylactic Antibiotics: The patient does not require prophylactic antibiotics. Prior Anticoagulants: The patient has taken no previous anticoagulant or antiplatelet agents. ASA Grade Assessment: II - A patient with mild systemic disease. After reviewing the risks and benefits, the patient was deemed in satisfactory condition to undergo the procedure. The anesthesia plan was to use monitored anesthesia care (MAC). Immediately prior to administration of medications, the patient was re-assessed for adequacy to receive sedatives. The heart rate, respiratory rate, oxygen saturations, blood pressure, adequacy of pulmonary ventilation, and response to care were monitored throughout the procedure. The physical status of the patient was re-assessed after the procedure. After I obtained informed consent, the scope was passed under direct vision. Throughout the procedure, the patient's blood pressure, pulse, and oxygen saturations were monitored continuously. The colonoscope was introduced through the anus and advanced to the cecum, identified by appendiceal orifice and ileocecal valve. The colonoscopy was performed without difficulty. The patient tolerated the procedure well. The quality of the bowel preparation was good. Scope In: 10:09:35 AM Scope Withdrawal Time 0 hours 15 minutes 21 seconds Scope Out: 10:31:01 AM Total Procedure Duration Time 0 hours 21 minutes 26 seconds Findings: The perianal and digital rectal examinations were normal. A few small-mouthed diverticula were found in the recto-sigmoid colon and sigmoid colon. Seven sessile polyps were found in the rectum, sigmoid colon, transverse colon, hepatic flexure and cecum. The polyps were 1 to 2 mm in size. These polyps were removed with a cold snare. Resection and retrieval were complete. Verification of patient identification for the specimen was done. Estimated blood loss was minimal. Impression: - Diverticulosis in the recto-sigmoid colon and in the sigmoid colon. - Seven 1 to 2 mm polyps in the rectum, in the sigmoid colon, in the transverse colon, at the hepatic flexure and in the cecum, removed with a cold snare. Resected and retrieved. Recommendation: - Repeat colonoscopy in 3 years for surveillance. - Continue present medications. Procedure Code(s): --- Professional --- 32762, Colonoscopy, flexible; with removal of tumor(s), polyp(s), or other lesion(s) by snare technique CPT copyright 2017 [employer]. All rights reserved. The codes documented in this report are preliminary and upon supervisor mold construction review may be revised to meet current compliance requirements. Cristofer Young DO 12/10/2022 10:39:18 AM This report has been signed electronically. Number of Addenda: 0 Note Initiated On: 12/10/2022 9:55 AM
--- NOTE | 2022-12-10 10:39 | OP.CCLET_ITS ---
12/10/2022 Pattie Michele Do Re : Colonoscopy procedure for Lydia Mariee Dear Ryne This procedure was performed on December. My impressions and recommendations are as follows: Impressions : - Diverticulosis in the recto-sigmoid colon and in the sigmoid colon. - Seven 1 to 2 mm polyps in the rectum, in the sigmoid colon, in the transverse colon, at the hepatic flexure and in the cecum, removed with a cold snare. Resected and retrieved. Recommendations : - Repeat colonoscopy in 3 years for surveillance. - Continue present medications. My findings are described in the full procedure note, which is enclosed. If I can be of further assistance, please feel free to contact me at . Sincerely, Cristofer Young, 12/10/2022 10:39:18 AM This report has been signed electronically.
== END 2022-12-10 11:45 | disposition home or self-care (01) ==
LOC: EN 08:46 → AC 08:49
PROVIDERS: PCP Family Medicine; Referring Provider Family Medicine; Visit Provider Internal Medicine Gastroenterology
PROC: 0DJD8ZZ Inspection of Lower Intestinal Tract, Via Natural or Artificial Opening Endoscopic (ICD-10-PCS; CPT 45378; principal; 2022-12-10 09:55)
DX: Z12.11 Encounter for screening for malignant neoplasm of colon (principal); K57.30 Diverticulosis of large intestine without perforation or abscess without bleeding; Z86.010 Personal history of colon polyps; D12.3 Benign neoplasm of transverse colon; D12.8 Benign neoplasm of rectum; J45.909 Unspecified asthma, uncomplicated; K21.9 Gastro-esophageal reflux disease without esophagitis; Z79.899 Other long term (current) drug therapy
CPT/HCPCS: 45385; 88305; J7120

== ENCOUNTER 2023-02-05 10:48 | Emergency (ER) | payer OTHER, SELFPAY ==
[2023-02-05 10:48] VITALS: BP 131/69; PULSE 62; RESP 20; TEMP 36.3; O2SAT 98
--- NOTE | 2023-02-05 10:58 | CT_ITS ---
STUDY: CT ABDOMEN AND PELVIS WITHOUT CONTRAST REASON FOR EXAM: Female, 62 years old. Pain- RIGHT FLANK PAIN WITH HISTORY OF KIDNEY STONES RADIATION DOSAGE (If Supplied By Facility): CTDIvol = ( 6.70 ) mGy, DLP = ( 304.68 ) mGycm TECHNIQUE: Transaxial images were obtained from the dome of the diaphragm to the symphysis pubis without oral contrast, and without intravenous contrast. Sagittal and coronal images were reconstructed. Individualized dose optimization techniques were used for this CT. COMPARISON: Comparison is made with prior study dated November 14, 2020. FINDINGS: Mild increased linear markings at the lung bases suggestive of a mild scarring. The visualized portions of the heart are within normal limits. Normal liver. Normal gallbladder and extrahepatic biliary system. Normal spleen. Normal pancreas. Normal bilateral adrenal glands. Normal right kidney. Normal left kidney. Normal visualized stomach. Normal small intestine. Normal colon. The appendix is visualized and appears normal. There is scattered atherosclerotic calcification of the abdominal aorta, without a demonstrated aneurysm. Normal inferior vena cava. Normal retroperitoneum. The urinary bladder is empty. There is evidence of a 2.7 mm calculus at the right ureterovesical junction. There is a small umbilical hernia containing fat. Normal osseous structures. CT/Abdomen/Pelvis without Cont IMPRESSION: 2.7 mm calculus at the right ureterovesical junction. The urinary bladder is empty. Electronically Signed: Juni Harris MD at 12:05 EDT ,
--- NOTE | 2023-02-05 11:00 | ED.VIS.FEGU ---
HPI HPI - Female History of Present Illness Chief Complaint: Flank Pain Detail of Chief Complaint: Right flank pain. Pain Current Severity: Moderate Maximum Severity: Moderate Associated Symptoms Associated Symptoms: Positive for Urgency Narrative Narrative: 62-year-old female history of 5 prior kidney stones. 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 States she started having urinary urgency last night. No dysuria. No hematuria. Right flank pain somewhat hour or so consistent with her prior kidney stones. Nausea and vomiting. No diarrhea or fever. Prior similar symptoms: Yes Recent Illness/Hospitalization: No PFSH PFSH Medical History Allergic rhinitis, unspecified Asthma COVID-19 Gastric reflux History of colon polyps History of shingles History of steroid therapy History of urinary calculi Insomnia, unspecified Kidney stones Moderate persistent asthma, uncomplicated Post-menopausal Wears contact lenses Home Medications albuterol sulfate 90 mcg/actuation aerosol inhaler (Ventolin HFA) 1 - 2 puff inhalation Q4H PRN PRN Shortness Of Breath 03/26/15 [History Last Taken 06/19/16 05:00] montelukast 10 mg tablet 10 mg PO DAILY 01/16/16 [History Last Taken Unknown] multivitamin with folic acid 400 mcg tablet (Thera) 1 tab PO DAILY 01/16/16 [History Last Taken Unknown] trazodone 50 mg tablet 50 mg PO QHS 08/30/20 [History Last Taken Unknown] tiotropium bromide 18 mcg capsule with inhalation device (Spiriva with HandiHaler) 1 cap inhalation DAILY 01/06/22 [History Last Taken Unknown] fluticasone 250 mcg-salmeterol 50 mcg/dose blistr powdr for inhalation (Advair Diskus) 2 inh inhalation BID 12/07/22 [History Last Taken 12/10/22 06:15] ondansetron 4 mg disintegrating tablet 4 mg PO Q8H PRN nausea and vomiting #7 tabs 02/05/23 [Rx Last Taken Unknown] oxycodone-acetaminophen 5 mg-325 mg tablet (Percocet) 1 tab PO Q4H PRN pain 3 days #12 tabs 02/05/23 [Rx Last Taken Unknown] tamsulosin 0.4 mg capsule (Flomax) 0.4 mg PO DAILY 4 days #4 caps 02/05/23 [Rx Last Taken Unknown] Allergy/AdvReac Type Severity Reaction Status Date / Time prednisone AdvReac Other Verified 12/10/22 09:09 Family History Grandmother Alzheimer disease Heart disease Grandfather Lung cancer Mother Heart disease Father CVA (cerebral vascular accident) Surgical History History of extraction of renal calculus History of splenectomy History of tonsillectomy and adenoidectomy History of tubal ligation Hx of cataract extraction Hx of section Hx of colonoscopy Hx of nasal polypectomy Social History household members: spouse Smoking Status: Never smoker alcohol intake: never ROS ROS ED ROS Narrative Right flank pain. Nausea and vomiting. Review of Systems ROS Unobtainable: Denies due to encephalopathy Constitutional Constitutional ED: Denies chills or fever(s) Eyes Eyes: Denies blurry vision ENT ENT ED: Denies ear pain Cardiovascular Cardiovascular: Denies chest pain Respiratory/Chest Respiratory/Chest: Denies cough or dyspnea Gastrointestinal Gastrointestinal: Reports abdominal pain, nausea and vomiting; Denies constipation, diarrhea or melena Genitourinary Genitourinary ED: Denies dysuria or hematuria Integumentary Denies abscess Neurologic Neurologic: Denies headache(s) Psychiatric Psychiatric: Denies anxiety Endocrine Endocrinology: Denies heat intolerance Hematologic/Lymphatic Hematologic/Lymphatic: Denies easy bleeding Allergic/Immunologic Allergic/Immunologic ED: Denies mouth swelling EXAM Physical Exam Narrative Exam Narrative: 62-year-old female complain right flank pain. Vital signs stable afebrile. Accompanied by her sister and . H EENT exam unremarkable. Neck nontender no JVD. Lungs clear. Heart regular rhythm. Abdomen soft nontender. Moving all 4 extremities. Flank nontender. Const Vital Signs: 02/05/23 10:48 Temperature 97.4 F L Temperature Source Temporal Pulse Rate 62 Respiratory Rate 20 H Blood Pressure 131/69 H Blood Pressure Mean 89 Pulse Ox 98 Oxygen Delivery Method Room Air Positive well nourished and well developed; Negative for cachectic, contractures or unkempt General Appearance ED: well developed and NAD; Negative for unkempt, cachectic, contractures or pallor Nutritional Appearance: Negative for cachectic HEENT Reports moist mucous membranes Negative for trauma or tenderness Eyes PERRL and EOMs intact bilaterally General Eye ED: Negative for pale conjunctiva, scleral icterus or other Neck no lymphadenopathy, supple and no JVD General: Negative for other Thyroid: Negative for tender Lymph Lymphatic: Negative for other Chest Wall inspection of chest normal and palpation of chest normal Chest: Negative for other Resp normal respiratory effort and clear to auscultation bilaterally Effort and Inspection: Negative for pain with movement Auscultation: Negative for rales, rhonchi or wheezes Cardio regular rate, regular rhythm, S1 normal heart sound, no murmurs and no JVD Rate: Negative for bradycardia Rhythm: Negative for abnormal rhythm GI normal to inspection, nondistended, normoactive bowel sounds, soft to palpation, non-tender, non-distended and no masses Auscultation: normoactive bowel sounds Palpation: Negative for tender, guarding or rigid Back/Spine no CVA tenderness General Back: Negative for CVA tenderness Cervical Spine: Negative for cervical spine tenderness Thoracic Spine / Upper Back: Negative for thoracic spinal tenderness Lumbar Spine / Lower Back: Negative for lumbar spinal tenderness Sacrum: Negative for other Extremity normal to inspection and full ROM General Extremety ED: Negative for edema General Extremity: Negative for edema Neuro oriented x3 and CN's II-XII intact bilaterally Sensorium / Orientation: alert, oriented to person, oriented to place and oriented to time; Negative for confused, lethargic or stuporous Motor Exam: strength 5/5 throughout; Negative for general weakness or strength abnormal Psych mental status grossly normal Appearance: Negative for unkempt Attitude: No agitated Speech: No other Mood & Affect: Negative for depressed, anxious or tearful Skin no rashes or lesions noted General Skin Exam: Negative for jaundice or pallor Rashes: No rashes noted MDM MDM MDM Narrative Medical decision making narrative: 62-year-old female with right flank pain for the last 1 to 2 hours. History of prior kidney stones. CAT scan and labs and urinalysis being obtained. Treated with morphine and Toradol for pain. Zofran for nausea. Repeat exam patient doing well at 12:15 PM. She will be given another dose of morphine for pain. She is comfortable being discharged home. We went over all of her test results and CAT scan. Percocet at home for pain. Zofran for nausea. Flomax. Follow-up with not improving. Return if worse. History & Record Review Discussion w/independent historian: Patient Additional record(s) reviewed:: Prior inpatient record, Prior outpatient record, Prior ED visit and Prior labs Lab Data Attestation: I reviewed the patient's lab results. Lab results narrative: CBC unremarkable. White count of 10. H&H 14 and 43. Platelets 469. Electrolytes show a gap of 5. Normal BUN and creatinine of 0.7. Glucose 109. UA shows blood but no infection. CAT scan shows a 2.7 mm right UVJ stone. Labs: Laboratory Results - last 24 hr 02/05/23 02/05/23 11:10 11:20 WBC 10.7 RBC 4.59 Hgb 14.6 Hct 43.0 MCV 93.7 MCH 31.8 MCHC 34.0 RDW Std Deviation 43.7 RDW Coeff of Geo 12.7 Plt Count 469 H MPV 9.8 Immature Gran % (Auto) 0.200 Neut % (Auto) 53.8 Lymph % (Auto) 27.1 [place] % (Auto) 10.2 H Eos % (Auto) 7.9 H Baso % (Auto) 0.8 Absolute Neuts (auto) 5.8 Absolute Lymphs (auto) 2.91 Nucleated RBC % 0 Sodium 137 Potassium 4.0 Chloride 107 Carbon Dioxide 25.0 Anion Gap 5 BUN 16 Creatinine 0.72 Est GFR (MDRD) Af Amer 106 Est GFR (MDRD) Non-Af 87 BUN/Creatinine Ratio 22.3 H Glucose 109 H Calcium 9.4 Urine Color Yellow Urine Clarity Sl. Cloudy Urine pH 5.0 Ur Specific [facility] 1.025 Urine Protein 30 H Urine Glucose (UA) Normal Urine Ketones 5 H Urine Occult Blood 250 H Urine Nitrite Negative Urine Bilirubin Negative Urine Urobilinogen 1 H Ur Leukocyte Esterase 25 H Urine RBC 10-25 SEEN Urine WBC 0 SEEN Ur Squamous Epith Cells 0 SEEN Urine Bacteria 0 SEEN Urine Mucus 0 SEEN Radiography Diagnostic Testing: Clinical Impression(s) from Imaging Studies Abdomen/Pelvis CT 02/05/23 10:58 IMPRESSION: 2.7 mm calculus at the right ureterovesical junction. The urinary bladder is empty. Electronically Signed: Juni Harris MD at 12:05 EDT , Discharge Plan Triage Chief Complaint: Flank Pain ED Provider: Leif Casiano Dx/Rx/DC Orders Clinical Impression: Kidney stone on right side Instructions: ED Kidney Stone w/ Colic Prescriptions: New oxycodone-acetaminophen [Percocet] 5-325 mg tablet 1 tab PO Q4H PRN (Reason: pain) 3 Days Qty: 12 0RF ondansetron 4 mg tablet,disintegrating 4 mg PO Q8H PRN (Reason: nausea and vomiting) Qty: 7 0RF tamsulosin [Flomax] 0.4 mg capsule 0.4 mg PO DAILY 4 Days Qty: 4 0RF No Action Spiriva with HandiHaler 18 mcg capsule, w/inhalation device 1 cap inhalation DAILY Rx Instructions: puncture 1 cap using device; one dose = 2 inhalations albuterol sulfate [Ventolin HFA] 1 INHALER inhaler 1 - 2 puff inhalation Q4H PRN PRN (Reason: Shortness Of Breath) Patient Comments: BREATHING montelukast 10 MG tablet 10 mg PO DAILY multivitamin with folic acid [Thera] 1 TABLET tablet 1 tab PO DAILY trazodone 50 MG tablet 50 mg PO QHS fluticasone propion-salmeterol [Advair Diskus] 250-50 mcg/dose blister with device 2 inh INHALATION BID Patient Comments: INHALE 1 PUFF BY MOUTH 2UTIMES A SALEEM Primary Care Provider: Pattie Michele Referrals: Pattie Michele, DO [Primary Care Provider] - As Needed Activity Restrictions/Additional Instructions: Your labs and urine look good. Normal kidney function. No urinary tract infection. CAT scan showed a 2.7 mm kidney stone down by your bladder. It should pass without significant difficulty. Flomax daily. Zofran as needed for nausea. Percocet for pain. Do not drink or drive while using the Percocet. Plenty of fluids and rest. Follow-up as needed. This stone should pass in the next several days. Disposition Disposition: Home, Self Care
[2023-02-05] MEDS: Ketorolac 15 MG/ML Vial IV (11:15)
[2023-02-05] MEDS: Ondansetron 4 MG/2 ML Vial IV (11:15)
[2023-02-05] MEDS: 0.9% Normal Saline 1,000 ML 1000 ML IV (11:16)
[2023-02-05 11:21] LABS: Absolute Lymphocyte Count 2.91 X10^3/uL (0.83-4.51); Absolute Neutrophil Count 5.8 X10^3/uL (2.0-7.7); Basophil# 0.09 X10^3/uL; Basophil% 0.8 % (0-1); Eosinophil# 0.85 X10^3/uL; Eosinophils% 7.9 % (0-5); Hemoglobin 14.6 g/dL (12.0-15.0); Lymphocyte # 2.91 X10^3/ul (0.83-4.51); Lymphocyte % 27.1 % (19-41); Mean Corpuscular Hgb 31.8 pg (27.0-32.0); Mean Corpuscular Volume 93.7 fL (81-99); Mean Platelet Vol. 9.8 fl (6.2-12.0); Monocyte# 1.09 X10^3/uL; Monocyte% 10.2 % (0-10); NRBC Flagged by Analyzer 0 % (0-5); Neutrophil # 5.77 X10^3/uL (2.7-7.7); Neutrophil % 53.8 % (47-70); Platelet Count 469 K/mm3 (150-450); RBC Distribution Width CV 12.7 % (11.6-14.6); RBC Distribution Width SD 43.7 fl (35.1-43.9); Red Blood Count 4.59 M/mm3 (4.2-5.4); White Blood Count 10.7 K/mm3 (4.4-11.0)
[2023-02-05] MEDS: morphine 8 MG/ML Syringe IV (11:24)
--- NOTE | 2023-02-05 11:25 | ED.RN ---
PT REQUESTING HALF OF MORPHINE ORDERED, 4MG GIVEN
[2023-02-05 11:30] LABS: Bacteria 0 SEEN /hpf (None Seen); Mucous, Urine 0 SEEN /hpf (<or=2+); Squamous Epithelial Cells - UA 0 SEEN /hpf (5-10); White Blood Cells 0 SEEN /hpf (0-5)
[2023-02-05 11:31] LABS: Anion Gap 5 (5-15); BUN 16 mg/dL (7-18); BUN/Creat Ratio 22.3 RATIO (10-20); Calcium,Total 9.4 mg/dL (8.5-10.1); Chloride 107 mmol/L (98-107); Creatinine, Serum 0.72 mg/dL (0.55-1.02); EST Glomerular Filtration Rate 87 mL/min (>60); Est Glom Filt Rate - Afr Amer 106 mL/min (>60); Glucose 109 mg/dL (74-106); Sodium Level 137 mmol/L (136-145)
[2023-02-05 11:33] LABS: Color, Urine Yellow (Yellow); Glucose, Dipstick Normal (Normal); Ketone-Dipstick 5 mg/dl (Negative); Leukocyte Esterase-Dipstick 25 /ul (Negative); Nitrite-Dipstick Negative (Negative); Occult Blood-Urine 250 /ul (Negative); Protein-Dipstick 30 mg/dl (Negative); Specific Gravity, Urine 1.025 (1.002-1.030); Urine Bilirubin Dipstick Negative (Negative); Urine Clarity Sl. Cloudy (Clear); Urine Urobilinogen 1 mg/dl (Normal)
[2023-02-05 11:40] LABS: Red Blood Cells-Urine 10-25 SEEN /hpf (0-5)
[2023-02-05 12:18] VITALS: BP 128/79; PULSE 74; RESP 16; TEMP 36.6; O2SAT 100
[2023-02-05] MEDS: morphine 8 MG/ML Syringe 6 MG IV (12:47)
== END 2023-02-05 12:54 | disposition home or self-care (01) ==
PROVIDERS: Emergency Provider Emergency Medicine; PCP Family Medicine; Visit Provider Emergency Medicine
DX: N20.2 Calculus of kidney with calculus of ureter (principal); Z87.442 Personal history of urinary calculi; Z90.81 Acquired absence of spleen; R39.15 Urgency of urination; J45.909 Unspecified asthma, uncomplicated
CPT/HCPCS: 74176; 80048; 81001; 85025; 96361; 96374; 96375; 96376; 99282; J7030; A4216; J2405

== ENCOUNTER → 2023-07-06 | Outpatient (CLI) | payer OTHER, SELFPAY ==
[2023-07-06 15:17] LABS: Absolute Lymphocyte Count 2.78 X10^3/uL (0.83-4.51); Basophil# 0.09 X10^3/uL; Basophil% 1.1 % (0-1); Eosinophil# 0.82 X10^3/uL; Eosinophils% 9.6 % (0-5); Hematocrit 44.2 % (37-47); Hemoglobin 14.4 g/dL (12.0-15.0); Lymphocyte # 2.78 X10^3/ul (0.83-4.51); Lymphocyte % 32.5 % (19-41); Mean Corp Hgb Conc 32.6 g/dL (32-36); Mean Corpuscular Hgb 31.2 pg (27.0-32.0); Mean Corpuscular Volume 95.7 fL (81-99); Mean Platelet Vol. 10.7 fl (6.2-12.0); Monocyte# 0.82 X10^3/uL; Monocyte% 9.6 % (0-10); NRBC Flagged by Analyzer 0 % (0-5); Neutrophil # 4.04 X10^3/uL (2.7-7.7); Neutrophil % 47.1 % (47-70); Platelet Count 452 K/mm3 (150-450); RBC Distribution Width CV 12.8 % (11.6-14.6); RBC Distribution Width SD 45.1 fl (35.1-43.9); Red Blood Count 4.62 M/mm3 (4.2-5.4); White Blood Count 8.6 K/mm3 (4.4-11.0)
[2023-07-06 16:09] LABS: Hemoglobin A1c 5.4 % (3.8-5.6)
[2023-07-06 16:12] LABS: AST(SGOT) 33 U/L (15-37); Alanine Aminotransfer ALT/SGPT 24 U/L (13-56); Albumin, Serum 3.9 g/dL (3.2-5.0); Alkaline Phosphatase 69 U/L (45-117); Anion Gap 9 (5-15); BUN 10 mg/dL (7-18); BUN/Creat Ratio 17.9 RATIO (10-20); Calcium,Total 9.5 mg/dL (8.5-10.1); Chloride 106 mmol/L (98-107); Cholesterol 188 mg/dL (200); Creatinine, Serum 0.56 mg/dL (0.55-1.02); EST Glomerular Filtration Rate 116 mL/min (>60); Est Glom Filt Rate - Afr Amer 140 mL/min (>60); Globulin 3.9 g/dL (2.2-4.2); Glucose 78 mg/dL (74-106); High Density Lipoprotein 83 mg/dL; Potassium 3.6 mmol/L (3.5-5.1); Protein, Total 7.8 g/dL (6.4-8.2); Sodium Level 141 mmol/L (136-145); Thyroid Stim Hormone (TSH) 2.58 uIU/mL (0.358-3.74); Triglycerides 67 mg/dL; Very Low Density Lipoprotein 13 mg/dL (5-40)
== END | disposition home or self-care (01) ==
PROVIDERS: PCP Family Medicine; Referring Provider Family Medicine; Visit Provider Family Medicine
DX: Z13.0 Encounter for screening for diseases of the blood and blood-forming organs and certain disorders involving the immune mechanism (principal); Z13.228 Encounter for screening for other metabolic disorders; Z13.220 Encounter for screening for lipoid disorders; Z13.1 Encounter for screening for diabetes mellitus
CPT/HCPCS: 36415; 80053; 80061; 83036; 84443; 85025

== ENCOUNTER → 2023-11-12 | Outpatient (CLI) | payer MEDICARE, OTHER, SELFPAY ==
--- NOTE | 2023-11-12 10:34 | BI_ITS ---
MAMMOGRAPHY - BILATERAL SCREENING REASON FOR EXAM: Female, 63 years old. Routine annual screening examination. PERTINENT HISTORY: Non-contributory. TECHNIQUE: Digital bilateral breast maría elena (3D mammographic acquisition) in the CC and MLO projections. 2-D mediolateral oblique (MLO) and craniocaudad (CC) views of both breasts were obtained. CAD: Full Field Digital Mammography with Computer Added Detection was performed. COMPARISON: Comparison is made with prior study of October 23, 2022 and October 17, 2021. FINDINGS: Breast Composition: There are scattered areas of fibroglandular density. There are no dominant masses or suspicious calcifications. There is a 3.3 mm fat-containing nodule in the upper outer aspect of the right breast suggestive of a small lymph node. This has decreased slightly in size. No other significant abnormalities are identified. There has been no significant change since the prior study. BI/SCRN MAMM (CAD)W/MARÍA ELENA BILAT IMPRESSION: Stable bilateral screening mammogram. Yearly follow-up mammogram recommended. (A) ASSESSMENT CATEGORY: BIRADS Category 2: Benign. A letter regarding these results will be sent to the patient by the facility within 30 days. Approximately 10% of breast cancers are not detected by mammography. A normal mammogram should not delay biopsy of a clinically suspicious abnormality. [id number] Electronically Signed: Juni Harris MD at 11:40 EDT ,
== END | disposition home or self-care (01) ==
LOC: OPBI 10:32
PROVIDERS: PCP Family Medicine; Referring Provider Family Medicine; Visit Provider Family Medicine
DX: Z12.31 Encounter for screening mammogram for malignant neoplasm of breast (principal)
CPT/HCPCS: 77063; 77067

== ENCOUNTER → 2024-06-02 | Outpatient (CLI) | payer MEDICARE, OTHER, SELFPAY ==
[2024-06-02 15:04] LABS: Absolute Lymphocyte Count 2.16 X10^3/uL (0.83-4.51); Absolute Neutrophil Count 4.7 X10^3/uL (2.0-7.7); Basophil# 0.07 X10^3/uL; Basophil% 0.9 % (0-1); Eosinophil# 0.24 X10^3/uL; Hematocrit 42.7 % (37-47); Hemoglobin 14.2 g/dL (12.0-15.0); Lymphocyte # 2.16 X10^3/ul (0.83-4.51); Lymphocyte % 27.1 % (19-41); Mean Corp Hgb Conc 33.3 g/dL (32-36); Mean Corpuscular Hgb 31.8 pg (27.0-32.0); Mean Corpuscular Volume 95.7 fL (81-99); Mean Platelet Vol. 10.5 fl (6.2-12.0); Monocyte# 0.82 X10^3/uL; Monocyte% 10.3 % (0-10); NRBC Flagged by Analyzer 0 % (0-5); Neutrophil # 4.67 X10^3/uL (2.7-7.7); Neutrophil % 58.4 % (47-70); Platelet Count 442 K/mm3 (150-450); RBC Distribution Width CV 12.9 % (11.6-14.6); RBC Distribution Width SD 45.2 fl (35.1-43.9); Red Blood Count 4.46 M/mm3 (4.2-5.4)
[2024-06-02 15:18] LABS: Vitamin D,25 Hydroxy 23.4 ng/mL
[2024-06-02 15:21] LABS: AST(SGOT) 32 U/L (15-37); Alanine Aminotransfer ALT/SGPT 22 U/L (13-56); Albumin, Serum 3.6 g/dL (3.2-5.0); Alkaline Phosphatase 67 U/L (45-117); Anion Gap 4 (5-15); BUN 13 mg/dL (7-18); Calcium,Total 9.6 mg/dL (8.5-10.1); Chloride 107 mmol/L (98-107); Cholesterol 185 mg/dL (200); Creatinine, Serum 0.62 mg/dL (0.55-1.02); EST Glomerular Filtration Rate 103 mL/min (>60); Est Glom Filt Rate - Afr Amer 124 mL/min (>60); Globulin 3.5 g/dL (2.2-4.2); Glucose 86 mg/dL (74-106); High Density Lipoprotein 80 mg/dL; Potassium 3.7 mmol/L (3.5-5.1); Protein, Total 7.1 g/dL (6.4-8.2); Sodium Level 136 mmol/L (136-145); Triglycerides 65 mg/dL; Very Low Density Lipoprotein 13 mg/dL (5-40)
== END | disposition home or self-care (01) ==
LOC: MTLAB 11:13
PROVIDERS: PCP Family Medicine; Referring Provider Family Medicine; Visit Provider Family Medicine
DX: R79.89 Other specified abnormal findings of blood chemistry (principal); B35.1 Tinea unguium
CPT/HCPCS: 36415; 80053; 80061; 82306; 85025

== ENCOUNTER → 2024-08-04 | Outpatient (CLI) | payer MEDICARE, OTHER, SELFPAY ==
--- NOTE | 2024-08-04 12:15 | BD_ITS ---
STUDY: DUAL ENERGY X-RAY ABSORPTIOMETRY / DXA REASON FOR EXAM: Female, 63 years old. OSTEOPOROSIS. Z94.0 Osteopenia TECHNIQUE: Bone Mineral Density (BMD) measurements were obtained. COMPARISON: None. FINDINGS: Lumbar Spine (L1-L4): g/cm2 (0.633) / T-score (-4.1) / Z-score (-2.2) Findings are suggestive of osteoporosis with a high fracture risk. Left Femur Total: g/cm2 (.600) / T-score (-2.8) / Z-score (-1.5) Left Femoral Neck: g/cm2 (0.434) / T-score (-3.7) / Z-score (-2.2) Right Femur Total: g/cm2 (0.552) / T-score (3.2) / Z-score (-1.9) Right Femoral Neck: g/cm2 (.449) / T-score (-3.6) / Z-score (-2.1) BD/Dexa Bone Density Study IMPRESSION: The patient is considered osteoporotic as outlined below according to World [place] Organization (WHO) criteria with a high fracture risk. FRAX Major fracture 48-50% Hip fracture 21-24% Reference Information: The T-score is the number of standard deviations above or below the standard which is normal for young adults at their peak bone mineral density. The World Health Organization (WHO) interprets the T-scores as follows: Above -1 Normal bone density Between -1 and -2.5 Osteopenia Equal to / or below -2.5 Osteoporosis As a practical clinical guideline, osteopenia may be graded as follows: Mild -1 through -1.5 Moderate -1.6 through -2.0 Severe -2.1 through -2.4 The Z-score is the number of standard deviations above or below age-matched controls. A Z-score of less than -1.5 would be considered abnormal. References: 1. NIH Osteoporosis and Related Bone Diseases http://www.osteo.org 2. International Society for Clinical Densitometry http://www.iscd.org 3. National Osteoporosis Foundation http://www.nof.org Electronically Signed: Waylon Bass MD at 16:31 EST ,
== END | disposition home or self-care (01) ==
LOC: OPBD 12:14
PROVIDERS: PCP Family Medicine
DX: M81.0 Age-related osteoporosis without current pathological fracture (principal); Z78.0 Asymptomatic menopausal state
CPT/HCPCS: 77080

== ENCOUNTER → 2024-08-31 | Outpatient (CLI) | payer MEDICARE, OTHER, SELFPAY ==
[2024-08-31 12:32] LABS: AST(SGOT) 29 U/L (15-37); Alanine Aminotransfer ALT/SGPT 21 U/L (13-56)
== END | disposition home or self-care (01) ==
LOC: MTLAB 10:47
PROVIDERS: PCP Family Medicine; Referring Provider Family Medicine; Visit Provider Family Medicine
DX: B35.1 Tinea unguium (principal)
CPT/HCPCS: 36415; 84450; 84460

== ENCOUNTER → 2024-10-04 | Outpatient (CLI) | payer MEDICARE, OTHER, SELFPAY ==
--- NOTE | 2024-10-04 12:44 | RAD_ITS ---
PROCEDURE: PA and lateral chest radiographs, two views REASON FOR EXAM: Wheezing TECHNIQUE: PA and lateral chest radiographs were obtained. COMPARISON: 10/2019 FINDINGS: The cardiomediastinal silhouette is similar. No pneumothorax or pleural effusion. Mild pulmonary hyperinflation. Bones are osteopenic with mild degenerative changes in the spine. Right lung is grossly clear. There is some new curvilinear opacity at the lateral left lung base on the PA view. There is also a questionable 17 mm nodule projecting over the posterior margin lower thoracic spine on the lateral view. RAD/Chest PA and Lateral IMPRESSION: New curvilinear opacity projects over the lateral left lung base on the PA view . There is also a 17 mm possible nodule projecting over the posterior inferior thorax on the lateral projection versus artifact. Short-term follow-up chest CT evaluation is recommended to evaluate these findings. Reading Location: [facility]
== END | disposition home or self-care (01) ==
LOC: MTRAD 12:43
PROVIDERS: PCP Family Medicine
DX: R68.89 Other general symptoms and signs (principal)
CPT/HCPCS: 71046

== ENCOUNTER → 2024-11-03 | Outpatient (CLI) | payer MEDICARE, OTHER, SELFPAY ==
--- NOTE | 2024-11-03 13:47 | CT_ITS ---
PROCEDURE: CHEST WITHOUT CONTRAST 11/03/2024 REASON FOR EXAM: 17MM NODULE IN LEFT LUNG, ASTHMA TECHNIQUE: Chest CT without contrast. Coronal and Sagittal reconstruction series were provided. One or more dose reduction techniques were used (e.g., Automated exposure control, adjustment of the mA and/or kV according to patient size, use of iterative reconstruction technique RADIATION DOSE SUMMARY: CTDlvol: 7.33 mGy DLP: 274.6 mGycm COMPARISON: Comparison is made with prior chest radiograph dated October 04, 2024. FINDINGS: Hardware: None Lymph nodes: Small benign-appearing mediastinal lymph nodes. Heart and Vasculature: The heart is nonenlarged. Atherosclerotic calcifications of the thoracic aorta. Thoracic aorta and pulmonary arteries have normal contours; noncontrast technique limits evaluation. Coronary Artery Calcifications: Absent Lungs and Airways: Mild emphysematous changes are present. Increased linear markings in the medial aspect of the right middle lobe suggestive of scarring. Increased linear markings at the left lung base suggestive of left basilar scarring. This most likely corresponds to the radiographic abnormality. Pleura: Unremarkable Upper Abdomen: Unremarkable Bones: Degenerative changes of the thoracic spine. CT/Chest without Contrast IMPRESSION: Findings suggestive of scarring in the medial aspect of the right upper lobe as well as at the left lung base. Reading Location: [facility]
== END | disposition home or self-care (01) ==
LOC: CT 13:45
PROVIDERS: PCP Family Medicine
DX: J45.909 Unspecified asthma, uncomplicated (principal)
CPT/HCPCS: 71250

== ENCOUNTER → 2024-12-15 | Outpatient (CLI) | payer MEDICARE, OTHER, SELFPAY ==
--- NOTE | 2024-12-15 10:49 | BI_ITS ---
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 Computer aided detection. COMPARISON: Prior exam(s) dated 11/12/2023, 10/23/2022, 10/17/2021. FINDINGS: TISSUE DENSITY: The breast tissue is composed of scattered area of fibroglandular density. Bilateral Breast Mammographic Findings: No significant masses, calcifications or other abnormalities are identified. BI/SCRN MAMM (CAD)W/MARÍA ELENA BILAT IMPRESSION: Right Breast: BIRADS 1 NEGATIVE. Left Breast: BIRADS 1 NEGATIVE. OVERALL FINAL ASSESSMENT: BIRADS 1 NEGATIVE. RECOMMENDATION: Routine annual follow-up in 1 Year A letter with findings and recommendations will be mailed to the patient. Reading Location: [id number]
== END | disposition home or self-care (01) ==
LOC: OPBI 10:47
PROVIDERS: PCP Family Medicine; Referring Provider Family Medicine; Visit Provider Family Medicine
DX: Z12.31 Encounter for screening mammogram for malignant neoplasm of breast (principal)
CPT/HCPCS: 77063; 77067

== ENCOUNTER 2025-02-23 16:29 | Emergency (ER) | payer MEDICARE, OTHER, SELFPAY ==
[2025-02-23 16:29] VITALS: BP 131/86; PULSE 72; RESP 16; TEMP 36.6; O2SAT 98; BMI 26.2
--- NOTE | 2025-02-23 16:48 | RAD_ITS ---
PROCEDURE: LEFT HAND MIN 3 VIEWS 02/23/2025 REASON FOR EXAM: FALL TECHNIQUE: LEFT HAND MIN 3 VIEWS COMPARISON: None. FINDINGS: Acute nondisplaced transversely oriented fractures through the 4th and 5th proximal metacarpal bases, with no intra-articular extension appreciated. No dislocation. Alignment is anatomic. Relatively well preserved joint spaces. Mild soft tissue swelling at the ulnar aspect of the hand/wrist. RAD/Hand Min 3 Views IMPRESSION: Acute nondisplaced fractures of the left 4th and 5th metacarpal bases. Reading Location: [id number]
--- NOTE | 2025-02-23 16:48 | CT_ITS ---
PROCEDURE: BRAIN/HEAD WITHOUT CONTRAST 02/23/2025 REASON FOR EXAM: FALL TECHNIQUE: BRAIN/HEAD WITHOUT CONTRAST Coronal and Sagittal reconstruction series were provided. One or more dose reduction techniques were used (e.g., Automated exposure control, adjustment of the mA and/or kV according to patient size, use of iterative reconstruction technique. FINDINGS: The bony calvarium is intact. There are bilateral nasal bone fractures. There is no intracranial mass, hemorrhage or edema. CT/Brain/Head without Contrast IMPRESSION: Negative for intracranial hemorrhage Reading [facility]
--- NOTE | 2025-02-23 16:48 | CT_ITS ---
PROCEDURE: SINUS/FACIAL BONE 02/23/2025 REASON FOR EXAM: FALL TECHNIQUE: SINUS/FACIAL BONE Coronal and Sagittal reconstruction series were provided. One or more dose reduction techniques were used (e.g., Automated exposure control, adjustment of the mA and/or kV according to patient size, use of iterative reconstruction technique). RADIATION DOSE SUMMARY: CTDlvol: 73 mGy DLP: 1326.69 mGycm FINDINGS: Left frontal soft tissue swelling. Mucosal thickening in the frontal sinuses. Bilateral nasal bone fractures with fluid or blood in the anterior nasal vestibule. No definite septal thickening. Medial and lateral orbital calle maintained. No globe injury or retrobulbar hematoma. No mandibular fracture. Zygomatic arches maintained. Middle ears and mastoids clear. Medial and lateral orbital calle intact. No frontal sinus fractures. The mandibular rami, condyles and body are maintained. The orbital floor appears to be intact bilaterally. CT/Sinus/Facial Bone IMPRESSION: Bilateral nasal fractures Reading Location: [facility]
--- NOTE | 2025-02-23 16:49 | EDS_ITS ---
HPI HPI - Fall History of Present Illness Chief Complaint: Fall Detail of Chief Complaint: Fall Informant: patient and spouse/S.O. Narrative Narrative: Patient presents the emergency department after sustaining a fall while walking the dog. Patient states that she thinks she tripped and fell forward and had time to put her hands up and struck her face on the ground. No loss of consciousness. She did have a nosebleed with this. She complains of pain in her left hand. She is right-hand dominant. Unsure of her last tetanus. She denies neck pain. She denies chest or abdomen pain. She is been ambulatory. Patient not anticoagulated. [facility] Medical History Allergic rhinitis, unspecified Asthma COVID-19 Gastric reflux History of colon polyps History of shingles History of steroid therapy History of urinary calculi Insomnia, unspecified Kidney stones Moderate persistent asthma, uncomplicated Post-menopausal Wears contact lenses Home Medications ?Medication ?Instructions ?Recorded ?Last Taken ?Type albuterol sulfate 90 mcg/actuation 1 - 2 puff inhalati on Q4H PRN PRN 03/26/15 06/19/16 05:00 History aerosol inhaler (Ventolin HFA) Shortness Of Breath montelukast 10 mg tablet 10 mg PO DAILY 01/16/16 Unkn own History multivitamin with folic acid 400 1 tab PO DAILY Unknown History mcg tablet (Thera) trazodone 50 mg tablet 50 mg PO QHS 08/30/20 Unknow n History tiotropium bromide 18 mcg capsule 1 cap inhalation XAVI LY 01/06/22 Unknown History with inhalation device (Spiriva with HandiHaler) fluticasone 250 mcg-salmeterol 50 2 inh inhalation BID 12/07/22 12/10/22 06:15 History mcg/dose blistr powdr for inhalation (Advair Diskus) ondansetron 4 mg disintegrating 4 mg PO Q8H PRN nausea and 02/05/23 Unknown Rx tablet vomiting #7 tabs oxycodone-acetaminophen 5 mg-325 1 tab PO Q4H PRN pain 3 days #12 02/05/23 Unknown Rx mg tablet (Percocet) tabs tamsulosin 0.4 mg capsule (Flomax) 0.4 mg PO DAILY 4 d ays #4 caps 02/05/23 Unknown Rx hydrocodone-acetaminophen 5-325mg 1 tab PO Q4H PRN PRN Pain 2 days 02/23/25 Unknown Rx 5mg-325mg #10 TABLETS Allergy/AdvReac Type Severity Reaction Status Date / Time prednisone AdvReac Other Verified 02/23/25 16:29 Family History Grandmother Alzheimer disease Heart disease Grandfather Lung cancer Mother Heart disease Father CVA (cerebral vascular accident) Surgical History History of extraction of renal calculus History of splenectomy History of tonsillectomy and adenoidectomy History of tubal ligation Hx of cataract extraction Hx of section Hx of colonoscopy Hx of nasal polypectomy Social History household members: spouse Smoking Status: Never smoker alcohol intake: never ROS ROS ED Review of Systems ROS Unobtainable: other Constitutional Constitutional ED: Reports lethargy; Denies chills, fever(s), sweats or weight loss Eyes Eyes: Denies blurry vision, change in vision or diplopia ENT ENT ED: Reports other Details: Nasal swelling and abrasions to nose and chin ; Denies rhinorrhea or sore throat Cardiovascular Cardiovascular: Denies chest pain, orthopnea or racing heartbeat Respiratory/Chest Respiratory/Chest: Denies cough, dyspnea, dyspnea on exertion, orthopnea or sputum Gastrointestinal Gastrointestinal: Denies abdominal pain, diarrhea, nausea or vomiting Genitourinary Genitourinary ED: Denies dysuria, hematuria or urinary frequency Musculoskeletal Musculoskeletal: Reports other Details: Left hand pain ; Denies arthralgias, back pain, myalgias or neck pain Integumentary Denies abscess, Abrasions or rash Neurologic Neurologic: Denies headache(s) or weakness Psychiatric Psychiatric: Denies anxiety, depression or suicidal thoughts Endocrine Endocrinology: Denies polydipsia, polyphagia or polyuria Hematologic/Lymphatic Hematologic/Lymphatic: Denies easy bleeding, easy bruising or lymphadenopathy Allergic/Immunologic Allergic/Immunologic ED: Denies mouth swelling, tongue swelling or urticaria EXAM Physical Exam Const Vital Signs: 02/23/25 16:29 Temperature 97.9 F Temperature Source Oral Pulse Rate 72 Respiratory Rate 16 Blood Pressure 131/86 H Blood Pressure Mean 101 Pulse Ox 98 Oxygen Delivery Method Room Air Positive well nourished and well developed General Appearance ED: well developed and NAD HEENT Reports TM's clear and moist mucous membranes HEENT Narrative: Soft tissue swelling to the nose with tenderness palpation over the nasal bones. Dried blood in both nasal vaults without septal hematoma. Superficial abrasion to her chin. Superficial abrasion to her nose. Midface stable. normocephalic and atraumatic; Negative for trauma or tenderness Tympanic Membrane ED: Yes TM's clear Eyes PERRL and EOMs intact bilaterally General Eye ED: Negative for pale conjunctiva or scleral icterus Neck no lymphadenopathy, supple and no JVD General: Negative for tenderness Chest Wall inspection of chest normal and palpation of chest normal Chest: Negative for tenderness Resp normal respiratory effort and clear to auscultation bilaterally Effort and Inspection: Negative for respiratory distress or pain with movement Auscultation: Negative for rhonchi, wheezes or diminished lung sounds Cardio regular rate, regular rhythm, S1 normal heart sound, S2 normal heart sound and no murmurs Peripheral Pulses: pulses 2+ throughout GI normal to inspection, nondistended, normoactive bowel sounds, soft to palpation, non-tender, non-distended and no masses Back/Spine no CVA tenderness and no thoracic nor lumbar tenderness Extremity Extremity Narrative: Left hand-patient has tenderness to palpation over the 4th and 5th metacarpals with some mild soft tissue swelling. No real tenderness over the carpal bones or distal radius or ulna. She is neurovascularly intact distally. She had a wedding ring on her left ring finger that I had her removed. General Extremety ED: Negative for edema General Extremity: Negative for edema Neuro oriented x3, CN's II-XII intact bilaterally, no sensory deficits noted and gait normal Sensorium / Orientation: awake, alert, oriented to person, oriented to place and oriented to time Motor Exam: strength 5/5 throughout and strength abnormal Psych mental status grossly normal Skin no rashes or lesions noted and no wounds MDM MDM MDM Narrative Medical decision making narrative: Patient presents with a mechanical fall with injury to her face and left hand. CT scan of the brain without contrast was obtained that showed no intracranial hemorrhage or skull fracture. She was noted to have nasal bone fracture. CT of the facial bones also showed nasal bone fractures. Patient had a ulnar gutter splint applied to the left upper extremity fabricated by myself from [employer]. Patient will be given a prescription for [place] for pain. She will be given dose of Adacel prior to discharge. Will refer to ENT as well as orthopedics for follow-up. Radiography Diagnostic Testing: Clinical Impression(s) from Imaging Studies Brain CT 02/23/25 16:48 IMPRESSION: Negative for intracranial hemorrhage Reading Location[facility] Three-view x-rays of the left hand obtained interpreted by myself is fracture of the base of the 5th and 4th metacarpals. Discharge Plan Triage Chief Complaint: Fall ED Provider: Watson Pillai Dx/Rx/DC Orders Clinical Impression: Fracture of left hand, Fracture of nasal bone Instructions: ED Nose Fracture, with X-Ray, ED Closed Hand Fracture (Adult), ED Head Injury (Adult) Prescriptions: New hydrocodone-acetaminophen 5-325 mg tablet 1 tab PO Q4H PRN PRN (Reason: Pain) 2 Days Qty: 10 0RF No Action Spiriva with HandiHaler 18 mcg capsule, w/inhalation device 1 cap inhalation DAILY Rx Instructions: puncture 1 cap using device; one dose = 2 inhalations albuterol sulfate [Ventolin HFA] 1 INHALER inhaler 1 - 2 puff inhalation Q4H PRN PRN (Reason: Shortness Of Breath) Patient Comments: BREATHING montelukast 10 MG tablet 10 mg PO DAILY multivitamin with folic acid [Thera] 1 TABLET tablet 1 tab PO DAILY trazodone 50 MG tablet 50 mg PO QHS fluticasone propion-salmeterol [Advair Diskus] 250-50 mcg/dose blister with device 2 inh INHALATION BID Patient Comments: INHALE 1 PUFF BY MOUTH 2UTIMES A SALEEM oxycodone-acetaminophen [Percocet] 5-325 mg tablet 1 tab PO Q4H PRN (Reason: pain) 3 Days Qty: 12 0RF ondansetron 4 mg tablet,disintegrating 4 mg PO Q8H PRN (Reason: nausea and vomiting) Qty: 7 0RF tamsulosin [Flomax] 0.4 mg capsule 0.4 mg PO DAILY 4 Days Qty: 4 0RF Primary Care Provider: Cole Ríos Referrals: Cole Ríos MD [Primary Care Provider] - Alex Tovar MD [Med Staff - Active Staff] - 5-7 Days Jayden Varela DO [Med Staff - Active Staff] - 3-5 Days Print Language: Citizen Of [place]
[2025-02-23 18:06] VITALS: BP 139/82; PULSE 74; RESP 18; TEMP 36.6; O2SAT 97
== END 2025-02-23 18:07 | disposition home or self-care (01) ==
LOC: ED 16:56
PROVIDERS: Emergency Provider Emergency Medicine; PCP Family Medicine; Visit Provider Emergency Medicine
DX: S02.2XXA Fracture of nasal bones, initial encounter for closed fracture (principal); R04.0 Epistaxis; S62.92XA Unspecified fracture of left hand, initial encounter for closed fracture; Y93.K1 Activity, walking an animal; J45.909 Unspecified asthma, uncomplicated; Z23 Encounter for immunization; W01.0XXA Fall on same level from slipping, tripping and stumbling without subsequent striking against object, initial encounter
CPT/HCPCS: 29125; 70450; 70486; 73130; 90471; 90715; 99283

== ENCOUNTER → 2025-03-05 | Outpatient (CLI) | payer MEDICARE, OTHER, SELFPAY ==
--- NOTE | 2025-03-05 11:57 | RAD_ITS ---
PROCEDURE: RIBS UNI MIN 3V W/PA CHEST 03/05/2025 REASON FOR EXAM: LEFT RIB INJURY TECHNIQUE: RIBS UNI MIN 3V W/PA CHEST COMPARISON: Prior study dated October 04, 2024. FINDINGS: Findings: There are nondisplaced fractures along the anterior lateral aspect of the left 6 7th and 8th ribs. Other: Hyperinflation and linear scarring at the lung bases. RAD/Ribs Uni Min 3V w/PA Chest IMPRESSION: Nondisplaced fractures of the left 6 7th and 8th ribs anterolaterally. Inflation. Scarring at both lung bases. No evidence of pneumothorax. Reading Location: [facility]
--- OUTSIDE RECORDS SUMMARY | 2025-03-05 22:08 | XMS RPT_ITS | CCD ---
Author Organization [facility] CliniSysd Care Team Providers Care Wireless Architect Name Role Phone Brenna Turk MD Primary Care Provider DO Pattie Michele Primary Care Provider Lizeth Shaver Attending Provider Unavailable Brenna Turk MD Primary Care Provider DO Pattie Michele Primary Care Provider Lizeth Shaver Attending Provider Unavailable DO Pattie Michele Referring Provider Fanny DAVILA, GIOVANNI Sullivan Attending Provider Friend, Dr. Cleveland Attending Provider FriendDr. Cleveland Other Provider DO Pattie Michele Primary Care Provider Brenna Turk MD Primary Care Provider Cole Ríos MD Primary Care Provider McMorrow GAME DESIGNER-CTobi Attending Provider McMorrow GAME DESIGNER-C, Tobi Referring Provider Cole Ríos MD Attending Provider Cole Ríos MD Referring Provider Shey GAME DESIGNER-CMary Attending Provider Shey GAME DESIGNER-C, Mary Referring Provider Brenna Turk MD Primary Care Provider BRENNA TURK Primary Care Unavailable ALTHEA ALLISON Attending Unavailable SELF, SELF Referring Unavailable ALTHEA ALLISON Attending Unavailable SELF, SELF Referring Unavailable BRENNA TURK Primary Care Unavailable Sepideh Ríos MDon Primary Care Provider [phone] Khushbu CRUZ, Cole Primary Care Provider [phone] Shey GAME DESIGNER-C, Mary Attending Provider Shey GAME DESIGNER-C, Mary Referring Provider Khushbu CRUZ, Cole Attending Provider [phone] Khushbu CRUZ, Cole Referring Provider [phone] Dr. Watson Pillai DO Emergency Provider [phone] Khushbu, Chalon Primary Care Unavailable UngWatson velarde Attending Unavailable Khushbu, Chalon Referring Unavailable Khushbu, Chalon Attending Unavailable Khushbu, Chalon Primary Care Unavailable Shankel GAME DESIGNER, Mary Attending Unavailable Khushbu, Chalon Primary Care Unavailable Shankel GAME DESIGNER, Mary Referring Unavailable Shankel GAME DESIGNER, Mary Attending Unavailable Khushbu, Chalon Primary Care Unavailable Shankel GAME DESIGNER, Mary Referring Unavailable Khushbu, Chalon Referring Unavailable Khushbu, Chalon Attending Unavailable Khushbu, Chalon Primary Care Unavailable McMorrow GAME DESIGNER, Tobi Referring Unavailable McMorrow GAME DESIGNER, Tobi Attending Unavailable Khushbu, Chalon Primary Care Unavailable Khushbu, Chalon Primary Care Unavailable Khushbu, Chalon Referring Unavailable Khushbu, Chalon Attending Unavailable Allergies Allergy Classification Reported Allergen(s) Allergy Type Date of Onset Reaction(s) Facility (15 sources) predniSONE Drug Allergy 9 Other [facility] Comment on above: oral prednisone caus es severe mood swings (2 sources) Prednisone Propensity to adverse reactions to drug 9 [facility] (1 source) predniSONE Drug Allergy 5 [facility] Repository Medications Current Medications Medication Drug Class(es) Dates Sig (Normalized) Sig (Original) acetaminophen 325 mg / HYDROcodone bitartrate 5 mg oral tablet (1 source) Opioid Agonist Start: 02-23-2025 take 1 tablet by mouth every four hours as needed for pain Hydrocodone-Aceta minophen 5-325 mg tablet Active 1 {tbl} PO EVERY 4 HOURS NEEDED as needed for Pain 10 2 0 February 23, 2025 Fracture of nasal bone Fracture of left hand Fracture of nasal bones, initial encounter for closed fracture acetaminophen 325 mg / oxyCODONE hydrochloride 5 mg oral tablet (17 sources) Opioid Agonist Start: 02-05-2023 take 1 tablet by mouth every four hours as needed for pain Oxycodone-Acetami nophen (Percocet) 5-325 mg tablet Active 1 {tbl} PO Q4H as needed for pain 12 3 0 February 05, 2023 Calculus of right kidney Calculus of kidney Start: 08-30-2020 End: 09-04-2020 Oxycodone-Acetaminophen 1 TA BLET tablet Discontinued 1 {tbl} PO EVERY 6 HOURS NEEDED as needed for Pain Score 6-10 20 5 0 August 30, 2020 September 03, 2020 1:00am September 04, 2020 1:03am Calculus of kidney Calculus of kidney Start: 08-30-2020 End: 09-04-2020 take 1 tablet by mouth every six hours as needed Oxycodone-Acetaminophen Discontinued 1 TABLET PO EVERY 6 HOURS NEEDED 20 5 August 30, 2020 September 04, 2020 1:03am Albuterol Sulfate (17 sources) beta2-Adrenergic Agonist Start: 03-26-2015 Albut amish Sulfate (Ventolin Hfa (Sp)) 1 INHALER inhaler Active 1 - 2 PUFF INHALATION EVERY 4 HOURS NEEDED March 26, 2015 7:54pm Start: 03-26-2015 Albuterol Sulf ate (Ventolin Hfa (Sp)) 1 INHALER inhaler Active 1 - 2 NMA INHALATION EVERY 4 HOURS NEEDED as needed for Shortness Of Breath March 26, 2015 12:00am Start: 03-26-2015 Albuterol Sulf ate (Ventolin Hfa (Sp)) 1 INHALER inhaler Active 1 - 2 PUFF INHALATION EVERY 4 HOURS NEEDED March 26, 2015 12:00am Start: 03-26-2015 Albuterol Sulf ate (Ventolin Hfa (Sp)) 1 INHALER inhaler Active 1 - 2 PUFF INHALATION EVERY 4 HOURS NEEDED March 26, 2015 12:00am take 1 puff(s) by in halation every six hours as needed for wheezing albuterol 108 (90 Base) MCG/ACT Aero Soln inhaler Inhale 1 puff every 6 hours as needed for Wheezing. Active brimonidine tartrate 2 mg/ml / timolol 5 mg/ml ophthalmic solution (6 sources) alpha-Adrenergic Agonist, beta-Adrenergic Danielito Start: 10-31-2021 Brimonidine Tartrate-Timolol (Combigan) 0.2-0.5 % Solution ophthalmic solution Indications: Low-tension glaucoma of both eyes, severe stage Place 1 drop in both eyes 2 times daily. 10 mL 1 10/31/2021 Active Brimonidine Tart rate-Timolol (COMBIGAN) 0.2-0.5 % Solution ophthalmic solution Place 1 drop in both eyes 2 times daily. 0 Active 60 actuat budesonide 0.16 mg/actuat / formoterol fumarate 0.0045 mg/actuat metered dose inhaler (6 sources) Corticosteroid, beta2-Adrenergic Agonist take 2 puff(s) by inhalation every twelve hours budesonide-formoterol 160-4.5 mcg/puff Aerosol inhaler Inhale 2 puffs every 12 hours. Active Fluticasone Propion-Salmetero l (10 sources) Corticosteroid, beta2-Adrenergic Agonist Start : 12-07 Fluticasone Propion-Salmeterol (Advair Diskus) 250-50 mcg/dose blister with device Active 2 NMA INHALATION TWICE A DAY December 07, 2022 12:00am Start: 12-07-2022 Fluticasone Pr opion-Salmeterol (Advair Diskus) 250-50 mcg/dose blister with device Active 2 INH INHALATION TWICE A DAY December 07, 2022 12:00am take 1 puff(s) by in halation every twelve hours Fluticasone-Salmeterol (Advair Diskus) 100-50 MCG/ACT Aerosol Powder, breath activated inhaler Inhale 1 puff every 12 hours. Active 30 actuat fluticasone furoate 0.1 mg/actuat / vilanterol 0.025 mg/actuat dry powder inhaler (4 sources) Corticosteroid, beta2-Adrenergic Agonist Start: 08-30-2020 Fluticasone Furoate-Vilanterol Active 1 PUFF DAILY August 30, 2020 1:00am Fluticasone Furoate-Vilante rol (BREO ELLIPTA IN) (4 sources) take 1 puff(s) by inhalation once daily Fluticasone Furoate-Vilanterol (BREO ELLIPTA IN) Inhale 1 puff daily. Active take 1 puff(s) by in halation once daily Fluticasone Furoate-Vilanterol (BREO ELL IPTA IN) Inhale 1 puff daily. 0 Active ketotifen 0.25 mg/ml ophthalmic solution (2 sources) Histamine-1 Receptor Inhibitor take 1 drop(s) into the eye(s) twice daily ketotifen (ALAWAY) 0.025 % Solution solution Place 1 drop in both eyes 2 times daily. 0 Active latanoprost 0.05 mg/ml ophthalmic solution (3 sources) Prostaglandin Analog Start: 2 take 1 drop(s) into the eye(s) at bedtime latanoprost 0.005 % Solution ophthalmic solution Place 1 drop in both eyes at bedtime. Generic. 90 day supply. 7.5 mL 3 12/26/2021 Active montelukast 10 mg oral tablet (15 sources) Leukotriene Receptor Antagonist Start: 6 take 1 tablet by mouth once daily Montelukast 10 MG tablet Active 10 mg PO DAILY January 16, 2016 12:00am Multiple Vitamin (MULTIVITAMIN) Cap (6 sources) take 1 capsule by mouth once daily Multiple Vitamin (MULTIVITAMIN) Cap Take 1 capsule by mouth daily. Active take 1 capsule by mouth once jose armando ly Multiple Vitamin (MULTIVITAMIN) Cap Take 1 capsule by mouth daily. 0 Active Multivitamin With Folic Acid (Thera) 1 TABLET tablet (11 sources) Start: 01-16-2016 take 1 tablet by mouth once daily Multivitamin With Folic Acid (Thera) 1 TABLET tablet Active 1 TABLET PO DAILY January 16, 2016 3:45pm Start: 01-16-2016 take 1 tablet by elissa th once daily Multivitamin With Folic Acid (Thera) 1 TABLET tablet Active 1 {tbl} PO DAILY January 16, 2016 12:00am Start: 01-16-2016 take 1 tablet by elissa th once daily Multivitamin With Folic Acid (Thera) 1 TABLET tablet Active 1 TABLET PO DAILY January 16, 2016 12:00am Start: 01-16-2016 take 1 tablet by elissa th once daily Multivitamin With Folic Acid (Thera) 1 TABLET tablet Active 1 TABLET PO DAILY January 15, 2016 11:00pm naproxen 500 mg oral tablet (4 sources) Nonsteroidal Anti-inflammatory Drug Start: 08-30-2020 take 500 mg by mouth twice daily Naproxen Active 500 MG PO TWICE A DAY August 30, 2020 1:00am olopatadine 2 mg/ml ophthalmic solution (6 sources) Histamine-1 Receptor Inhibitor Start: 10-03-2021 take 1 drop(s) into the eye(s) once daily Olopatadine HCl 0.2 % Solution ophthalmic solution Indications: Allergic conjunctivitis of both eyes Place 1 drop in both eyes daily. Wait 10 minutes before applying contact lenses 2.5 mL 3 10/03/2021 Active Start: 11-20-2020 take 1 drop(s) into the eye(s) once daily Olopatadine HCl 0.2 % Solution ophthalmic solution Indications: Allergic conjunctivitis of both eyes Place 1 drop in both eyes daily. Wait 10 minutes before applying contact lenses 1 Bottle 11 11/20/2020 Active ondansetron 4 mg disintegrating oral tablet (10 sources) Serotonin-3 Receptor Antagonist Start: 02-05-2023 take 1 tablet by mouth every eight hours as needed for nausea and vomiting Ondansetron 4 mg tablet,disintegrating Active 4 mg PO Q8H as needed for nausea and vomiting 7 0 February 05, 2023 12:00am Start: 08-30-2020 take 4 mg by mouth e very eight hours as needed Ondansetron Active 4 MG PO EVERY 8 HOURS NEEDED August 30, 2020 1:00am sodium chloride 9 mg/ml inhalation solution (6 sources) Start: 09-19-2021 sodium chlorid e 0.9 % Nebu Soln Indications: Keratoconus, stable, bilateral Apply 3 mL to eye 2 times daily. To fill scleral contact lens 2 times per day 300 mL 11 09/19/2021 Active Start: 01-30-2019 sodium chlorid e 0.9 % Nebu Soln Indications: Keratoconus, stable, bilateral Apply 3 mL to eye 2 times daily. To fill scleral contact lens 2 times per day 100 mL 11 01/30/2019 Active tamsulosin hydrochloride 0.4 mg oral capsule (6 sources) alpha-Adrenergic Danielito Start: 02-05-2023 take 1 capsule by mouth once daily Tamsulosin (Flomax) 0.4 mg capsule Active 0.4 mg PO DAILY 4 4 0 February 05, 2023 12:00am 12 hr timolol 5 mg/ml ophthalmic solution (3 sources) beta-Adrenergic Danielito Start: 12-26-2021 take 1 drop(s) into the eye(s) twice daily timolol maleate 0.5 % Solution ophthalmic solution Place 1 drop in both eyes 2 times daily. Generic. 15 mL 3 12/26/2021 Active tiotropium 0.018 mg inhalation powder (13 sources) Anticholinergic Start: 01-06-2022 take 1 capsule by inhalation once daily Tiotropium [place] (Spiriva With Handihaler) 18 mcg capsule, w/inhalation device Active 1 NMA INHALATION DAILY January 06, 2022 12:00am puncture 1 cap using device; one dose = 2 inhalations Start: 08-28-2021 Spiriva HandiH aler 18 MCG inhalation capsule 08/28/2021 Active traZODone hydrochloride 50 mg oral tablet (20 sources) Serotonin Reuptake Inhibitor Start: 08-30-2020 take 1 tablet by mouth at bedtime Trazodone 50 MG tablet Active 50 mg PO AT BEDTIME August 30, 2020 1:00am Completed/Discontinued Medications Medication Drug Class(es) Dates Sig (Normalized) Sig (Original) loratadine 10 mg oral capsule (9 sources) Start: 01-06-2022 End: 10-02-2022 take 1 capsule by mouth once daily Loratadine (Claritin Liqui-Gel) 10 mg capsule Discontinued 10 mg PO DAILY January 06, 2022 12:00am October 02, 2022 9:16am Molnupiravir (16 sources) Start: 10-11-2022 End: 2022 take 1 capsule by mouth every twelve hours Molnupiravir (Lagevrio (Eua)) 200 mg capsule Discontinued 800 mg PO Q12H 40 5 0 October 11, 2022 11:19am October 15, 2022 1:00am 2022 1:05am Start: 10-11-2022 End: 2022 take 1 capsule by mouth every twelve hours Molnupiravir (Lagevrio (Eua)) 200 mg capsule Discontinued 800 mg PO Q12H 40 5 October 11, 2022 11:19am October 15, 2022 1:00am 2022 1:05am Start: 10-11-2022 End: 2022 take 1 capsule by mouth every twelve hours Molnupiravir (Lagevrio (Eua)) 200 mg capsule Discontinued 800 MG PO Q12H 40 5 October 11, 2022 11:19am 2022 1:05am Start: 10-10-2022 End: 10-11-2022 take 1 capsule by mouth every twelve hours Molnupiravir (Lagevrio (Eua)) 200 mg capsule Discontinued 800 mg PO Q12H 40 5 0 October 10, 2022 1:00am October 14, 2022 1:00am October 11, 2022 11:20am Start: 10-10-2022 End: 10-11-2022 take 1 capsule by mouth every twelve hours Molnupiravir (Lagevrio (Eua)) 200 mg capsule Discontinued 800 mg PO Q12H 40 5 October 10, 2022 1:00am October 14, 2022 1:00am October 11, 2022 11:20am Start: 10-10-2022 End: 10-11-2022 take 1 capsule by mouth every twelve hours Molnupiravir (Lagevrio (Eua)) 200 mg capsule Discontinued 800 MG PO Q12H 40 5 October 10, 2022 1:00am October 11, 2022 11:20am Problems Active Problems Problem Classification Problem Date Documented Da te Episodic/Chronic Asthma (1 source) Unspecified asthma, uncomplicated; Translations: [Unspecified asthma, uncomplicated] Onset: 11-09-2024 Chronic Calculus of urinary tract (6 sources) Kidney stone; Translations: [Calculus of kidney] 02-05-2023 Episodic Fracture of upper limb (1 source) Fracture of bone of left hand; Translations: [Unspecified fracture of left wrist and hand, initial encounter for closed fracture] 02-23-2025 Episodic Glaucoma (6 sources) Bilateral low tension glaucoma of eyes; Translations: [Low-tension glaucoma, bilateral, severe stage] Onset: 05-25-2024 Chronic Inflammation; infection of eye (except that caused by tuberculosis or sexually transmitteddisease) (3 sources) Filamentary keratitis of left eye; Translations: [Filamentary keratitis, left eye] Onset: 05-25-2024 05-25-2024 Chronic Osteoporosis (1 source) Age-related osteoporosis without current pathological fracture; Translations: [Age-related osteoporosis without current pathological fracture] Onset: 08-31-2024 Chronic Other eye disorders (2 sources) Keratoconus, stable, bilateral; Translations: [Keratoconus, stable condition] Episodic Other injuries and conditions due to external causes (1 source) Encounter for examination and observation following other accident; Translations: [Encounter for examination and observation following other accident] Onset: 02-27-2025 Episodic Other screening for suspected conditions (not mental disorders or infectious disease) (13 sources) Patient encounter status; Translations: [Encounter for screening for malignant neoplasm of colon] Onset: 06-26-2024 01-06-2022 Episodic Skull and face fractures (1 source) Fractured nasal bones; Translations: [Fracture of nasal bones, initial encounter for closed fracture] 02-23-2025 Episodic Viral infection (11 sources) Disease caused by 2019-nCoV; Translations: [COVID-19] 10-10-2022 Episodic Past or Other Problems Problem Classification Problem Date Documented Da te Episodic/Chronic Mycoses (1 source) Tinea unguium; Translations: [Tinea unguium] Onset: 09-21-2024 Episodic Other eye disorders (1 source) Bilateral keratoconus of corneas; Translations: [Keratoconus, unspecified, bilateral] Episodic Residual codes; unclassified (1 source) Other general symptoms and signs; Translations: [Other general symptoms and signs] Onset: 10-19-2024 Episodic Results Test Name Value Interpretation Reference Range Facility Brain/Head without Contrasto n 02-23-2025 Brain/Head without Contrast [facility] Imaging Services [address] [place] [address] [id number] Brain/Head without Contrast MR#: [id number] Acct: [id number] Name: LYDIA MARIEE Rep #: [id number] : 1960 F 64 From: uRddy Garcia MD PCP: Dr. Cole Ríos MD Status: REG ER Study: Brain/Head without Contrast Date of Exam: 02/06 04/02 Exam# [id number] Ordering Dr: Watson Pillai DO PROCEDURE: BRAIN/HEAD WITHOUT CONTRAST 02/23/2025 REASON FOR EXAM: FALL TECHNIQUE: BRAIN/HEAD WITHOUT CONTRAST Coronal and Sagittal reconstruction series were provided. One or more dose reduction techniques were used (e.g., Automated exposure control, adjustment of the mA and/or kV according to patient size, use of iterative reconstruction technique. FINDINGS: The bony calvarium is intact. There are bilateral nasal bone fractures. There is no intracranial mass, hemorrhage or edema. CT/Brain/Head without Contrast IMPRESSION: Negative for intracranial hemorrhage Reading Location: [facility] CC: Dr. Cole Ríos MD; Dr. Watson Pillai DO Technology Resource Teacher: Signed Normal [facility] Emergency Department Summary on 02-23-2025 Emergency Department Summary [facility] Medical Records Department [address] [place] [address] Emergency Department Summary 02/23/25 MR#: [id number] Acct: [id number] Name: LYDIA MARIEE Rep #: [id number] : 1960 64 From: Watson Pillai DO PCP: Dr. Cole Ríos MD Status:DEP ER Location: ED HPI HPI - Fall History of Present Illness Chief Complaint: Fall Detail of Chief Complaint: Fall Informant: patient and spouse/S.O. Narrative Narrative: Patient presents the emergency department after sustaining a fall while walking the dog. Patient states that she thinks she tripped and fell forward and had time to put her hands up and struck her face on the ground. No loss of consciousness. She did have a nosebleed with this. She complains of pain in her left hand. She is right-hand dominant. Unsure of her last tetanus. She denies neck pain. She denies chest or abdomen pain. She is been ambulatory. Patient not anticoagulated. [facility] Medical History Allergic rhinitis, unspecified Asthma COVID-19 Gastric reflux History of colon polyps History of shingles History of steroid therapy History of urinary calculi Insomnia, unspecified Kidney stones Moderate persistent asthma, uncomplicated Post-menopausal Wears contact lenses Home Medications ???Medication ???Instructions ???Recorded ???Last Taken ???Type albuterol sulfate 90 mcg/actuation 1 - 2 puff inhalation Q4H PRN VT N 03/26/15 06/19/16 05:00 History aerosol inhaler (Ventolin HFA) Shortness Of Breath montelukast 10 mg tablet 10 mg PO DAILY 01/16/16 Unknown Hi story multivitamin with folic acid 400 1 tab PO DAILY 01/16/16 Unknown Hi story mcg tablet (Thera) trazodone 50 mg tablet 50 mg PO QHS 08/30/20 Unknown Hist ory tiotropium bromide 18 mcg capsule 1 cap inhalation DAILY 01/06/22 U nknown History with inhalation device (Spiriva with HandiHaler) fluticasone 250 mcg-salmeterol 50 2 inh inhalation BID 12/07/2211/29 06:15 History mcg/dose blistr powdr for inhalation (Advair Diskus) ondansetron 4 mg disintegrating 4 mg PO Q8H PRN nausea and 3 Unknown Rx tablet vomiting #7 tabs oxycodone-acetaminoph en 5 mg-325 1 tab PO Q4H PRN pain 3 days #12 0 02/05/23 Unknown Rx mg tablet (Percocet) tabs tamsulosin 0.4 mg capsule (Flomax) 0.4 mg PO DAILY 4 days #4 caps 0 02/05/23 Unknown Rx hydrocodone-acetamino phen 5-325mg 1 tab PO Q4H PRN PRN Pain 2 days 02/23/25 Unknown Rx 5mg-325mg #10 TABLETS Allergy/AdvReac Type Severity Reaction Status Date / Time prednisone AdvReac Other Verified 02/23/25 16:29 Family History Grandmother Alzheimer disease Heart disease Grandfather Lung cancer Mother Heart disease Father CVA (cerebral vascular accident) Surgical History History of extraction of renal calculus History of splenectomy History of tonsillectomy and adenoidectomy History of tubal ligation Hx of cataract extraction Hx of section Hx of colonoscopy Hx of nasal polypectomy Social History household members: spouse Smoking Status: Never smoker alcohol intake: never ROS ROS ED Review of Systems ROS Unobtainable: other Constitutional Constitutional ED: Reports lethargy; Denies chills, fever(s), sweats or weight loss Eyes Eyes: Denies blurry vision, change in vision or diplopia ENT ENT ED: Reports other Details: Nasal swelling and abrasions to nose and chin ; Denies rhinorrhea or sore throat Cardiovascular Cardiovascular: Denies chest pain, orthopnea or racing heartbeat Respiratory/Chest Respiratory/Chest: Denies cough, dyspnea, dyspnea on exertion, orthopnea or sputum Gastrointestinal Gastrointestinal: Denies abdominal pain, diarrhea, nausea or vomiting Genitourinary Genitourinary ED: Denies dysuria, hematuria or urinary frequency Musculoskeletal Musculoskeletal: Reports other Details: Left hand pain ; Denies arthralgias, back pain, myalgias or neck pain Integumentary Denies abscess, Abrasions or rash Neurologic Neurologic: Denies headache(s) or weakness Psychiatric Psychiatric: Denies anxiety, depression or suicidal thoughts Endocrine Endocrinology: Denies polydipsia, polyphagia or polyuria Hematologic/Lymphatic Hematologic/Lymphatic : Denies easy bleeding, easy bruising or lymphadenopathy Allergic/Immunologic Allergic/Immunologic ED: Denies mouth swelling, tongue swelling or urticaria EXAM Physical Exam Const Vital Signs: 02/23/25 16:29 Temperature 97.9 F Temperature Source Oral Pulse Rate 72 Respiratory Rate 16 Blood Pressure 131/86 H Blood Pressure Mean 101 Puls (more content not included)... Normal [facility] Hand Min 3 Viewson 5 Hand Min 3 Views [facility] Imaging Services [address] [place] [address] Hand Min 3 Views MR#: [id number] Acct: [id number] Name: LYDIA MARIEE Rep #: [id number] : 1960 F 64 From: Rodney Weinberg MD PCP: Dr. Cole Ríos MD Status: DEP ER Study: Hand Min 3 Views Date of Exam: 02/23/25 Exam# [id number] Ordering Dr: Watson Pillai DO PROCEDURE: LEFT HAND MIN 3 VIEWS 02/23/2025 REASON FOR EXAM: FALL TECHNIQUE: LEFT HAND MIN 3 VIEWS COMPARISON: None. FINDINGS: Acute nondisplaced transversely oriented fractures through the 4th and 5th proximal metacarpal bases, with no intra-articular extension appreciated. No dislocation. Alignment is anatomic. Relatively well preserved joint spaces. Mild soft tissue swelling at the ulnar aspect of the hand/wrist. RAD/Hand Min 3 Views IMPRESSION: Acute nondisplaced fractures of the left 4th and 5th metacarpal bases. Reading Location: [id number] CC: Dr. Cole Ríos MD; Dr. Watson Pillai DO Technology Resource Teacher: Signed Normal [facility] Sinus/Facial Boneon 02-24-20 Sinus/Facial Bone [facility] Imaging Services [address] [place], [place] [address] Sinus/Facial Bone MR#: [id number] Acct: [id number] Name: LYDIA MARIEE Rep #: [id number] : 1960 F 64 From: Ruddy Garcia MD PCP: Dr. Cole Ríos MD Status: [facility] ER Study: Sinus/Facial Bone Date of Exam: 02/23/25 Exam# [id number] Ordering Dr: Watson Pillai DO PROCEDURE: SINUS/FACIAL BONE 02/23/2025 REASON FOR EXAM: FALL TECHNIQUE: SINUS/FACIAL BONE Coronal and Sagittal reconstruction series were provided. One or more dose reduction techniques were used (e.g., Automated exposure control, adjustment of the mA and/or kV according to patient size, use of iterative reconstruction technique). RADIATION DOSE SUMMARY: CTDlvol: 73 mGy DLP: 1326.69 mGycm FINDINGS: Left frontal soft tissue swelling. Mucosal thickening in the frontal sinuses. Bilateral nasal bone fractures with fluid or blood in the anterior nasal vestibule. No definite septal thickening. Medial and lateral orbital calle maintained. No globe injury or retrobulbar hematoma. No mandibular fracture. Zygomatic arches maintained. Middle ears and mastoids clear. Medial and lateral orbital calle intact. No frontal sinus fractures. The mandibular rami, condyles and body are maintained. The orbital floor appears to be intact bilaterally. CT/Sinus/Facial Bone IMPRESSION: Bilateral nasal fractures Reading Location: [facility] CC: Dr. Cole Ríos MD; Dr. Watson Pillai DO Technology Resource Teacher: Signed Normal [facility] Breast imaging reportOrdered By: Leandra Ho on 12-15-2024 Study report [facility] Imaging Services [address] [place] [address] SCRN MAMM (CAD)W/MARÍA ELENA BILAT MR#: [id number] Acct: [id number] Name: LYDIA MARIEE Rep #: [id number] : 1960 F 64 From: Angie Ho MD PCP: Dr. Cole Ríos MD Status: REG CL I Study:SCRN MAMM (CAD)W/MARÍA ELENA BILAT Date of Exa m: 12/15/24 Exam# [id number] Ordering Dr: Anjali Ríos MD EXAM: SCRN MAMM (CAD)W/MARÍA ELENA BILAT 12/15/2024 CLINICAL HISTORY: F, Age 64 y/o , ROUTINE SCREEN TECHNIQUE: Bilateral screening digital breast tomosynthesis with 2D and 3D images. Computeraided detection. COMPARISON: Prior exam(s) dated 11/12/2023, 10/23/2022, 10/17/2021. FINDINGS: TISSUE DENSITY: The breast tissue is composed of scattered area of fibroglandular density. Bilateral Breast Mammographic Findings: No significant masses, calcifications or other abnormalities are identified. BI/SCRN MAMM (CAD)W/MARÍA ELENA BILAT IMPRESSION: Right Breast: BIRADS 1 NEGATIVE. Left Breast: BIRADS 1 NEGATIVE. OVERALL FINAL ASSESSMENT: BIRADS 1 NEGATIVE. RECOMMENDATION: Routine annual follow-up in 1 Year A letter with findings and recommendations will be mailed to the patient. Reading Location: [facility] CC: Dr. Cole Ríos MD ~ Technology Resource Teacher: Signed [facility] SCRN MAMM (CAD)W/MARÍA ELENA BILATo n 12-15-2024 SCRN MAMM (CAD)W/MARÍA ELENA BILAT [facility] Imaging Services [address] [place] [address] SCRN MAMM (CAD)W/MARÍA ELENA BILAT MR#: [id number] Acct: [id number] Name: LYDIA MARIEE Rep #: [id number] : 1960 F 64 From: Leandra Ho MD PCP: Dr. 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 Computer aided detection. COMPARISON: Prior exam(s) dated 11/12/2023, 10/23/2022, 10/17/2021. FINDINGS: TISSUE DENSITY: The breast tissue is composed of scattered area of fibroglandular density. Bilateral Breast Mammographic Findings: No significant masses, calcifications or other abnormalities are identified. BI/SCRN MAMM (CAD)W/MARÍA ELENA BILAT IMPRESSION: Right Breast: BIRADS 1 NEGATIVE. Left Breast: BIRADS 1 NEGATIVE. OVERALL FINAL ASSESSMENT: BIRADS 1 NEGATIVE. RECOMMENDATION: Routine annual follow-up in 1 Year A letter with findings and recommendations will be mailed to the patient. Reading Location: [facility] CC: Dr. Cole Ríos MD Technology Resource Teacher: Signed Normal [facility] Chest without Contraston Chest without Contrast [facility] Imaging Services [address] [place] [id number] Chest without Contrast MR#: [id number] Acct: [id number] Name: LYDIA MARIEE Rep #: [id number] : 1960 F 64 From: Juni min MD PCP: Dr. Cole Ríos MD Status: REG CLI Study: Chest without Contrast Date of Exam: 11/03/24 Exam# [id number] Ordering Dr: Mary Kat GAME DESIGNER GAME DESIGNER -C PROCEDURE: CHEST WITHOUT CONTRAST 11/03/2024 REASON FOR EXAM: 17MM NODULE IN LEFT LUNG, ASTHMA TECHNIQUE: Chest CT without contrast. Coronal and Sagittal reconstruction series were provided. One or more dose reduction techniques were used (e.g., Automated exposure control, adjustment of the mA and/or kV according to patient size, use of iterative reconstruction technique RADIATION DOSE SUMMARY: CTDlvol: 7.33 mGy DLP: 274.6 mGycm COMPARISON: Comparison is made with prior chest radiograph dated October 04, 2024. FINDINGS: Hardware: None Lymph nodes: Small benign-appearing mediastinal lymph nodes. Heart and Vasculature: The heart is nonenlarged. Atherosclerotic calcifications of the thoracic aorta. Thoracic aorta and pulmonary arteries have normal contours; noncontrast technique limits evaluation. Coronary Artery Calcifications: Absent Lungs and Airways: Mild emphysematous changes are present. Increased linear markings in the medial aspect of the right middle lobe suggestive of scarring. Increased linear markings at the left lung base suggestive of left basilar scarring. This most likely corresponds to the radiographic abnormality. Pleura: Unremarkable Upper Abdomen: Unremarkable Bones: Degenerative changes of the thoracic spine. CT/Chest without Contrast IMPRESSION: Findings suggestive of scarring in the medial aspect of the right upper lobe as well as at the left lung base. Reading Location: [place] [address] CC: Mary Kat; Dr. Cole Ríos MD Technology Resource Teacher: Signed Normal [facility] Chest PA and Lateralon 10-04 Chest PA and Lateral [facility] Imaging Services [address] [place] [address] Chest PA and Lateral MR#: [id number] Acct: [id number] Name: LYDIA MARIEE Rep #: [id number] : 1960 F 63 From: Jermain Smith i, DO PCP: Dr. Cole Ríos MD Status: REG CLI Study: Chest PA and Lateral Date of Exam: 10/04/24 Exam# [id number] Ordering Dr: Mary Kat NP, NP PROCEDURE: PA and lateral chest radiographs, two views REASON FOR EXAM: Wheezing TECHNIQUE: PA and lateral chest radiographs were obtained. COMPARISON: 10/2019 FINDINGS: The cardiomediastinal silhouette is similar. No pneumothorax or pleural effusion. Mild pulmonary hyperinflation. Bones are osteopenic with mild degenerative changes in the spine. Right lung is grossly clear. There is some new curvilinear opacity at the lateral left lung base on the PA view. There is also a questionable 17 mm nodule projecting over the posterior margin lower thoracic spine on the lateral view. RAD/Chest PA and Lateral IMPRESSION: New curvilinear opacity projects over the lateral left lung base on the PA view. There is also a 17 mm possible nodule projecting over the posterior inferior thorax on the lateral projection versus artifact. Short-term follow-up chest CT evaluation is recommended to evaluate these findings. Reading Location: [facility] CC: Mary Kat; Dr. Cole Ríos MD Technology Resource Teacher: Signed Normal [facility] AST(SGOT)on 08-31-2024 AST [Catalytic activity/Vol] 29 U/L Normal 15-37 [facility] Comment on above: Order Comment: Order Date: 08/28/24 Order Info: 1920-03 - AST Order Info: 1742-01 - ALT Performed By: #### L 501.4405, L501.4100 #### [facility] [address] [place], [address] Alanine Aminotransferas (SGP T)on 08-31-2024 ALT [Catalytic activity/Vol] 21 U/L Normal 13-56 [facility] Comment on above: Order Comment: Order Date: 08/28/24 Order Info: 1920-03 - AST Order Info: 1742-01 - ALT Performed By: #### L 501.4405, L501.4100 #### [facility] [address] [place], [address] Laboratory - Chemistry and C hemistry - challengeOrdered By: Cole Ríos on 08-31-2024 AST [Catalytic activity/Vol] 29 U/L 15-37 [facility] Serum or plasma alanine jones otransferase (ALT) measurementOrdered By: Cole Ríos on 08-31-2024 ALT [Catalytic activity/Vol] 21 U/L 1356 [facility] Dexa Bone Density Studyon Dexa Bone Density Study [facility] Imaging Services [address] [place] [address] Dexa Bone Density Study MR#: [id number] Acct: [id number] Name: LYDIA MARIEE Rep #: [id number] : 1960 F 63 From: Waylon Lazar PCP: Dr. Cole Ríos MD Status: REG CLI Study: Dexa Bone Density Study Date of Exam: 08/04/24 Exam# [id number] Ordering Dr: Tobi Blanc NP GAME DESIGNER -C [id number] STUDY: DUAL ENERGY X-RAY ABSORPTIOMETRY / DXA REASON FOR EXAM: Female, 63 years old. OSTEOPOROSIS. Z94.0 Osteopenia TECHNIQUE: Bone Mineral Density (BMD) measurements were obtained. COMPARISON: None. FINDINGS: Lumbar Spine (L1-L4): g/cm2 (0.633) / T-score (-4.1) / Z-score (-2.2) Findings are suggestive of osteoporosis with a high fracture risk. Left Femur Total: g/cm2 (.600) / T-score (-2.8) / Z-score (-1.5) Left Femoral Neck: g/cm2 (0.434) / T-score (-3.7) / Z-score (-2.2) Right Femur Total: g/cm2 (0.552) / T-score (3.2) / Z-score (-1.9) Right Femoral Neck: g/cm2 (.449) / T-score (-3.6) / Z-score (-2.1) BD/Dexa Bone Density Study IMPRESSION: The patient is considered osteoporotic as outlined below according to World Hernando Organization (WHO) criteria with a high fracture risk. FRAX Major fracture 48-50% Hip fracture 21-24% Reference Information: The T-score is the number of standard deviations above or below the standard which is normal for young adults at their peak bone mineral density. The World Health Organization (WHO) interprets the T-scores as follows: Above -1 Normal bone density Between -1 and -2.5 Osteopenia Equal to / or below -2.5 Osteoporosis As a practical clinical guideline, osteopenia may be graded as follows: Mild -1 through -1.5 Moderate -1.6 through -2.0 Severe -2.1 through -2.4 The Z-score is the number of standard deviations above or below age-matched controls. A Z-score of less than -1.5 would be considered abnormal. References: 1. NIH Osteoporosis and Related Bone Diseases http://www.osteo.org 2. International Society for Clinical Densitometry http://www.iscd.org 3. National Osteoporosis Foundation http://www.nof.org Electronically Signed: Waylon Bass MD at 16:31 EST Reading Location ID and State: [facility] / [place] , Service support , CC: [facility]; Dr. Cole Ríos MD Technology Resource Teacher: Signed Normal [facility] CBC W/Diff, Automatedon 2 Absolute Lymph 2.16 X10 3/uL Normal 0.83-4.51 [facility] Comment on above: Order Comment: Order Date: 06/02/24 Order Info: 0184-1 - CBCD Performed By: #### L 100.0100, L500.4100, L506.1000, L500.4050 #### [facility] [address] [place], [address] Absolute Neut 4.7 X10 3/uL Normal 2.0-7.7 [facility] Comment on above: Order Comment: Order Date: 06/02/24 Order Info: 0184-1 - CBCD Performed By: #### L 100.0100, L500.4100, L506.1000, L500.4050 #### [facility] [address] [place], [address] Basophils/100 WBC (Bld) 0.9 % Normal 0-1 [facility] Comment on above: Order Comment: Order Date: 06/02/24 Order Info: 0184-1 - CBCD Performed By: #### L 100.0100, L500.4100, L506.1000, L500.4050 #### [facility] [address] [place], [address] Eosinophils/100 WBC (Bld) 3.0 % Normal 0-5 [facility] Comment on above: Order Comment: Order Date: 06/02/24 Order Info: 0184-1 - CBCD Performed By: #### L 100.0100, L500.4100, L506.1000, L500.4050 #### [facility] [address] [place], [address] Erythrocyte distribution width (RBC) [Ratio] 12.9 % Normal 11.6-14.6 [facility] Comment on above: Order Comment: Order Date: 06/02/24 Order Info: 0184-1 - CBCD Performed By: #### L 100.0100, L500.4100, L506.1000, L500.4050 #### [facility] [address] [place], [address] Hematocrit (Bld) [Volume fraction] 42.7 % Normal 37-47 [facility] Comment on above: Order Comment: Order Date: 06/02/24 Order Info: 0184-1 - CBCD Performed By: #### L 100.0100, L500.4100, L506.1000, L500.4050 #### [facility] [address] [place], [address] Hemoglobin (Bld) [Mass/Vol] 14.2 g/dL Normal 12.0-15.0 [facility] Comment on above: Order Comment: Order Date: 06/02/24 Order Info: 01811-07 - CBCD Performed By: #### L 100.0100, L500.4100, L506.1000, L500.4050 #### [facility] [address] [place], [address] IG% 0.300 Normal 0.0-0.9 [facility] Comment on above: Order Comment: Order Date: 06/02/24 Order Info: 183-08 - CBCD Result Comment: IG% - Immature Granulocytes (promyelocytes, myelocytes and metamyelocytes) > 1% indicates that a LEFT SHIFT is Present. Performed By: #### L 100.0100, L500.4100, L506.1000, L500.4050 #### [facility] [address] [place], [address] Lymphocytes/100 WBC (Bld) 27.1 % Normal 19-41 [facility] Comment on above: Order Comment: Order Date: 06/02/24 Order Info: 01811-07 - CBCD Performed By: #### L 100.0100, L500.4100, L506.1000, L500.4050 #### [facility] [address] [place], [address] MCH (RBC) [Entitic mass] 31.8 pg Normal 27.0-32.0 [facility] Comment on above: Order Comment: Order Date: 06/02/24 Order Info: 01811-07 - CBCD Performed By: #### L 100.0100, L500.4100, L506.1000, L500.4050 #### [facility] [address] [place], [address] MCHC (RBC) [Mass/Vol] 33.3 g/dL Normal 32-36 [facility] Comment on above: Order Comment: Order Date: 06/02/24 Order Info: 0184-1 - CBCD Performed By: #### L 100.0100, L500.4100, L506.1000, L500.4050 #### [facility] [address] [place], [address] MCV (RBC) [Entitic vol] 95.7 fL Normal 81-99 [facility] Comment on above: Order Comment: Order Date: 06/02/24 Order Info: 0184-1 - CBCD Performed By: #### L 100.0100, L500.4100, L506.1000, L500.4050 #### [facility] [address] [place], [address] Monocytes/100 WBC (Bld) 10.3 % High 0-10 [facility] Comment on above: Order Comment: Order Date: 06/02/24 Order Info: 0184- - CBCD Performed By: #### L 100.0100, L500.4100, L506.1000, L500.4050 #### [facility] [address] [place], [address] Neutrophils/100 WBC (Bld) 58.4 % Normal 47-70 [facility] Comment on above: Order Comment: Order Date: 06/02/24 Order Info: 0184-1 - CBCD Performed By: #### L 100.0100, L500.4100, L506.1000, L500.4050 #### [facility] [address] [place], [address] Nucleated RBC (Bld) [#/Vol] 0 10*3/uL Normal 0-5 [facility] Comment on above: Order Comment: Order Date: 06/02/24 Order Info: 0184-1 - CBCD Performed By: #### L 100.0100, L500.4100, L506.1000, L500.4050 #### [facility] [address] [place], [address] Platelet mean volume (Bld) [Entitic vol] 10.5 fL Normal 6.2-12.0 [facility] Comment on above: Order Comment: Order Date: 06/02/24 Order Info: 0184- - CBCD Performed By: #### L 100.0100, L500.4100, L506.1000, L500.4050 #### [facility] [address] [place], [address] Platelets (Bld) [#/Vol] 442 10*3/uL Normal 150-450 [facility] Comment on above: Order Comment: Order Date: 06/02/24 Order Info: 0184- - CBCD Performed By: #### L 100.0100, L500.4100, L506.1000, L500.4050 #### [facility] [address] [place], [address] RBC (Bld) [#/Vol] 4.46 10*6/uL Normal 4.2-5.4 [facility] Comment on above: Order Comment: Order Date: 06/02/24 Order Info: 0184- - CBCD Performed By: #### L 100.0100, L500.4100, L506.1000, L500.4050 #### [facility] [address] [place], [address] RDW SD 45.2 fl High 35.1-43.9 [facility] Comment on above: Order Comment: Order Date: 06/02/24 Order Info: 0184-1 - CBCD Performed By: #### L 100.0100, L500.4100, L506.1000, L500.4050 #### [facility] [address] [place], [address] WBC (Bld) [#/Vol] 8.0 10*3/uL Normal 4.4-11.0 [facility] Comment on above: Order Comment: Order Date: 06/02/24 Order Info: 0184-1 - CBCD Performed By: #### L 100.0100, L500.4100, L506.1000, L500.4050 #### [facility] [address] [place], [address] Comprehensive Metabolic Prof ilon 06-02-2024 Albumin [Mass/Vol] 3.6 g/dL Normal 3.2-5.0 [facility] Comment on above: Order Comment: Order Date: 06/02/24 Order Info: 0786-1 - CMP Order Info: 15347-8 - LIPID Performed By: #### L 100.0100, L500.4100, L506.1000, L500.4050 #### [facility] [address] [place], [address] Albumin/Globulin [Mass ratio] 1.0 {ratio} Normal 0.9-2.4 [facility] Comment on above: Order Comment: Order Date: 06/02/24 Order Info: 0786-1 - CMP Order Info: 27228-4 - LIPID Performed By: #### L 100.0100, L500.4100, L506.1000, L500.4050 #### [facility] [address] [place], [address] ALK P 67 U/L Normal 45-117 [facility] Comment on above: Order Comment: Order Date: 06/02/24 Order Info: 0786-1 - CMP Order Info: 68680-1 - LIPID Performed By: #### L 100.0100, L500.4100, L506.1000, L500.4050 #### [facility] [address] [place], [address] ALT [Catalytic activity/Vol] 22 U/L Normal 13-56 [facility] Comment on above: Order Comment: Order Date: 06/02/24 Order Info: 0786-1 - CMP Order Info: 72990-6 - LIPID Performed By: #### L 100.0100, L500.4100, L506.1000, L500.4050 #### [facility] [address] [place], [address] AST [Catalytic activity/Vol] 32 U/L Normal 15-37 [facility] Comment on above: Order Comment: Order Date: 06/02/24 Order Info: 0786-1 - CMP Order Info: 53101-1 - LIPID Performed By: #### L 100.0100, L500.4100, L506.1000, L500.4050 #### [facility] [address] [place], [address] Bilirubin [Mass/Vol] 1.10 mg/dL High 0.20-1.00 [facility] Comment on above: Order Comment: Order Date: 06/02/24 Order Info: 0786-1 - CMP Order Info: 35500-7 - LIPID Result Comment: For patients on eltrombopag therapy, use of Dimension Linn TBIL is not recommended. Performed By: #### L 100.0100, L500.4100, L506.1000, L500.4050 #### [facility] [address] [place], [address] BUN/CRE 21.0 RATIO High 10-20 [facility] Comment on above: Order Comment: Order Date: 06/02/24 Order Info: 0786-1 - CMP Order Info: 57354-7 - LIPID Performed By: #### L 100.0100, L500.4100, L506.1000, L500.4050 #### [facility] [address] [place], [address] CA,Total 9.6 mg/dL Normal 8.5-10.1 [facility] Comment on above: Order Comment: Order Date: 06/02/24 Order Info: 0786-1 - CMP Order Info: 05786-4 - LIPID Performed By: #### L 100.0100, L500.4100, L506.1000, L500.4050 #### [facility] [address] [place], [address] Chloride [Moles/Vol] 107 mmol/L Normal 98-107 [facility] Comment on above: Order Comment: Order Date: 06/02/24 Order Info: 785-08 - CMP Order Info: 63515-4 - LIPID Performed By: #### L 100.0100, L500.4100, L506.1000, L500.4050 #### [facility] [address] [place], [address] CO2 [Moles/Vol] 26.0 mmol/L Normal 21.0-32.0 [facility] Comment on above: Order Comment: Order Date: 06/02/24 Order Info: 07 - CMP Order Info: [id number] - LIPID Performed By: #### L 100.0100, L500.4100, L506.1000, L500.4050 #### [facility] [address] [place], [address] Creatinine [Mass/Vol] 0.62 mg/dL Normal 0.55-1.02 [facility] Comment on above: Order Comment: Order Date: 06/02/24 Order Info: 07 - CMP Order Info: 03788-7 - LIPID Result Comment: The validity of the calculated GFR GFRAA in patients over 70 years has not been determined. Clinical correlation is essential. Performed By: #### L 100.0100, L500.4100, L506.1000, L500.4050 #### [facility] [address] [place], [address] EST GFR - AA 124 mL/min Normal >60 [facility] Comment on above: Order Comment: Order Date: 06/02/24 Order Info: 07861 - CMP Order Info: 77733-1 - LIPID Result Comment: Afri can [place] GFR Calc Performed By: #### L 100.0100, L500.4100, L506.1000, L500.4050 #### [facility] [address] [place], [address] GAP 4 Low 5-15 [facility] Comment on above: Order Comment: Order Date: 06/02/24 Order Info: 0786-1 - CMP Order Info: 86499-3 - LIPID Performed By: #### L 100.0100, L500.4100, L506.1000, L500.4050 #### [facility] [address] [place], [address] GFR/1.73 sq M.predicted among non-blacks MDRD (S/P/Bld) [Vol rate/Area] 103 mL/min/{1.73_m2} Normal >60 [facility] Comment on above: Order Comment: Order Date: 06/02/24 Order Info: 07 - CMP Order Info: [id number] - LIPID Result Comment: Non- GFR Calc Performed By: #### L 100.0100, L500.4100, L506.1000, L500.4050 #### [facility] [address] [place], [address] Globulin (S) [Mass/Vol] 3.5 g/dL Normal 2.2-4.2 [facility] Comment on above: Order Comment: Order Date: 06/02/24 Order Info: 0786- - CMP Order Info: 82939-7 - LIPID Performed By: #### L 100.0100, L500.4100, L506.1000, L500.4050 #### [facility] [address] [place], [address] Glucose [Mass/Vol] 86 mg/dL Normal 74-106 [facility] Comment on above: Order Comment: Order Date: 06/02/24 Order Info: 0786-1 - CMP Order Info: 84513-6 - LIPID Performed By: #### L 100.0100, L500.4100, L506.1000, L500.4050 #### [facility] [address] [place], [address] Potassium [Moles/Vol] 3.7 mmol/L Normal 3.5-5.1 [facility] Comment on above: Order Comment: Order Date: 06/02/24 Order Info: 0786-1 - CMP Order Info: 84636-9 - LIPID Performed By: #### L 100.0100, L500.4100, L506.1000, L500.4050 #### [facility] [address] [place], [address] Sodium [Moles/Vol] 136 mmol/L Normal 136-145 [facility] Comment on above: Order Comment: Order Date: 06/02/24 Order Info: 0786- - CMP Order Info: [id number] - LIPID Performed By: #### L 100.0100, L500.4100, L506.1000, L500.4050 #### [facility] [address] [place], [address] T PROT 7.1 g/dL Normal 6.4-8.2 [facility] Comment on above: Order Comment: Order Date: 06/02/24 Order Info: 0786- - CMP Order Info: 15993-5 - LIPID Performed By: #### L 100.0100, L500.4100, L506.1000, L500.4050 #### [facility] [address] [place], [address] Urea nitrogen [Mass/Vol] 13 mg/dL Normal 7-18 [facility] Comment on above: Order Comment: Order Date: 06/02/24 Order Info: 0786-1 - CMP Order Info: 12344-7 - LIPID Performed By: #### L 100.0100, L500.4100, L506.1000, L500.4050 #### [facility] [address] [place], [address] Lipid Profileon 06-02-2024 Cholesterol [Mass/Vol] 185 mg/dL Normal 200 [facility] Comment on above: Order Comment: Order Date: 06/02/24 Order Info: 0786-1 - CMP Order Info: 98128-5 - LIPID Result Comment: <200 mg/dL Desirable 200-240 mg/dL Borderline >240 mg/dL High Risk Performed By: #### L 100.0100, L500.4100, L506.1000, L500.4050 #### [facility] [address] [place], [address] Cholesterol in HDL [Mass/Vol] 80 mg/dL Normal [facility] Comment on above: Order Comment: Order Date: 06/02/24 Order Info: 0786 - CMP Order Info: 55813-9 - LIPID Result Comment: The drugs N-Acetylcysteine and Metamizole may falsely depress this assay. Reference Range HDL <40 mg/dL Low HDL Cholesterol HDL >or= 60 mg/dL High HDL Cholesterol Performed By: #### L 100.0100, L500.4100, L506.1000, L500.4050 #### [facility] [address] [place], [address] Cholesterol in LDL [Mass/Vol] 92 mg/dL Normal 0-130 [facility] Comment on above: Order Comment: Order Date: 06/02/24 Order Info: 0786- - CMP Order Info: 57941-3 - LIPID Performed By: #### L 100.0100, L500.4100, L506.1000, L500.4050 #### [facility] [address] [place], [address] Cholesterol in VLDL [Mass/Vol] 13 mg/dL Normal 5-40 [facility] Comment on above: Order Comment: Order Date: 06/02/24 Order Info: 0786- - CMP Order Info: 24206-2 - LIPID Performed By: #### L 100.0100, L500.4100, L506.1000, L500.4050 #### [facility] [address] [place], [address] Triglyceride [Mass/Vol] 65 mg/dL Normal [facility] Comment on above: Order Comment: Order Date: 06/02/24 Order Info: 0786-1 - CMP Order Info: [id number] - LIPID Result Comment: The drugs N-Acetylcysteine and Metamizole may falsely depress this assay. Serum Triglycerides Reference Interval Normal <150 mg/dL Borderline high 150 - 199 mg/dL High 200 - 499 mg/dL Very High > or = 500 mg/dL Performed By: #### L 100.0100, L500.4100, L506.1000, L500.4050 #### [facility] [address] [facility] [place], [place], [id number] Vitamin D,25 Hydroxyon 06-02 Vitamin D 25-OH 23.4 ng/mL Normal [facility] Comment on above: Order Comment: Order Date: 06/02/24 Order Info: [id number] - VITD25 Result Comment: Debbie min D 25(OH) Status Range Deficiency <20 ng/mL (50nmol/L) Insufficiency 20 - 30 ng/mL (50 - 75 nmol/L) Sufficiency 30 - 100 ng/mL (75 - 250 nmol/L) Toxicity >100 ng/mL (>250 nmol/L) Performed By: #### L 100.0100, L500.4100, L506.1000, L500.4050 #### [facility] [address] [place], [place], [id number] Absolute lymphocyte countOrd ered By: Leif Casiano on 02-05-2023 Lymphocytes Auto (Unsp spec) [#/Vol] 2.91 10*3/uL 0.83-4.51 [facility] Basophil percentageOrdered B y: Leif Casiano on 02-05-2023 Basophil percentage 0 SEEN /hpf 0-5 [facility] Basophils/100 WBC (Bld) 0.8 % 0-1 [facility] Chloride [Moles/Vol] 107 mmol/L 98-107 [facility] Eosinophils/100 WBC (Bld) 7.9 % 0-5 [facility] Glucose [Mass/Vol] 109 mg/dL 74-106 [facility] Comment on above: Fasting Glucose resu lt from 100 to 125 mg/dL suggests IMPAIRED HOMEOSTASIS per A.D.A. criteria. Neutrophils (Bld) [#/Vol] 5.8 10*3/uL 2.0-7.7 [facility] Neutrophils/100 WBC (Bld) 53.8 % 47-70 [facility] Potassium [Moles/Vol] 4.0 mmol/L 3.5-5.1 [facility] Sodium [Moles/Vol] 137 mmol/L 136-145 [facility] WBC (Bld) [#/Vol] 10.7 10*3/uL 4.4-11.0 [facility] Bilirubin Test strip Ql (U)O rdered By: Leif Casiano on 02-05-2023 Bilirubin Ql (U) Negative Negative [facility] Blood erythrocytes count (nu mber/volume)Ordered By: Leif Casiano on 02-05-2023 RBC (Bld) [#/Vol] 4.59 10*6/uL 4.2-5.4 [facility] Blood hemoglobin measurement (mass/volume)Ordered By: Leif Casiano on 02-05-2023 Hemoglobin (Bld) [Mass/Vol] 14.6 g/dL 12.0-15.0 [facility] Blood lymphocytes/100 leukoc ytesOrdered By: Leif Casiano on 02-05-2023 Lymphocytes/100 WBC (Bld) 27.1 % 19-41 [facility] Blood monocytes/100 leukocyt esOrdered By: Leif Casiano on 02-05-2023 Monocytes/100 WBC (Bld) 10.2 % 0-10 [facility] Blood platelet mean volumeOr dered By: Leif Casiano on 02-05-2023 Platelet mean volume (Bld) [Entitic vol] 9.8 fL 6.2-12.0 [facility] Determination of erythrocyte mean corpuscular volume (MCV)Ordered By: Leif Casiano on 02-05-2023 MCV (RBC) [Entitic vol] 93.7 fL 81-99 [facility] Hematocrit Auto (Bld) [Volum e fraction]Ordered By: Leif Casiano on 02-05-2023 Hematocrit (Bld) [Volume fraction] 43.0 % 37-47 [facility] Ketones Test strip Ql (U)Ord ered By: Leif Casiano on 02-05-2023 Ketones Ql (U) 5 mg/dl Negative [facility] - Chemistry and C hemistry - challengeOrdered By: Leif Casiano on 02-05-2023 CO2 [Moles/Vol] 25.0 mmol/L 21.0-32.0 [facility] Urea nitrogen/Creatinine [Mass ratio] 22.3 mg/mg 10-20 [facility] - Hematology and Cell countsOrdered By: Leif Casiano on 02-05-2023 Erythrocyte distribution width (RBC) [Entitic vol] 43.7 fL 35.1-43.9 [facility] Erythrocyte distribution width (RBC) [Ratio] 12.7 % 11.6-14.6 [facility] Immature granulocytes/100 WBC (Bld) 0.200 % 0.0-0.9 [facility] Comment on above: IG% - Immature Granu locytes (promyelocytes, myelocytes and metamyelocytes) > 1% indicates that a LEFT SHIFT is Present. MCH (RBC) [Entitic mass] 31.8 pg 27.0-32.0 [facility] Nucleated RBC/100 WBC (Bld) [Ratio] 0 % 0-5 [facility] MCHC Auto (RBC) [Mass/Vol]Or dered By: Leif Casiano on 02-05-2023 MCHC (RBC) [Mass/Vol] 34.0 g/dL 32-36 [facility] Mucus LM Ql (Urine sed)Order ed By: Leif Casiano on 02-05-2023 Mucus Ql (Urine sed) 0 SEEN /hpf [facility] Nitrite Test strip Ql (U)Ord ered By: Leif Casiano on 02-05-2023 Nitrite Ql (U) Negative Negative [facility] No Panel InformationOrdered By: Leif Casiano on 02-05-2023 Estimated GFR (MDRD) Amer 106 mL/min >60 [facility] Comment on above: GFR Calc Estimated GFR (MDRD) Non-Af Amer 87 mL/min >60 [facility] Comment on above: Non- GFR Calc Platelets bldOrdered By: Jose Daniel Casiano on 02-05-2023 Platelets (Bld) [#/Vol] 469 10*3/uL 150-450 [facility] Protein Test strip Ql (U)Ord ered By: Leif Casiano on 02-05-2023 Protein Ql (U) 30 mg/dl Negative [facility] Serum or plasma calcium nestor urement (mass/volume)Ordered By: Leif Casiano on 02-05-2023 Calcium [Mass/Vol] 9.4 mg/dL 8.5-10.1 [facility] Serum or plasma creatinine m easurement (mass/volume)Ordered By: Leif Casiano on 02-05-2023 Creatinine [Mass/Vol] 0.72 mg/dL 0.55-1.02 [facility] Comment on above: The validity of the calculated GFR & GFRAA in patients over 70 years has not been determined. Clinical correlation is essential. Serum or plasma urea nitroge n measurement (mass/volume)Ordered By: Leif Casiano on 02-05-2023 Urea nitrogen [Mass/Vol] 16 mg/dL 7-18 [facility] Squamous epithelial cells de tection in urine sediment by light microscopyOrdered By: Leif Casiano on 02-05-2023 Epithelial cells.squamous LM Ql (Urine sed) 0 SEEN /hpf 5-10 [facility] Thin prep Papanicolaou smear with manual screeningOrdered By: Leif Casiano on 02-05-2023 Thin prep Papanicolaou smear with manual screening 5 5-15 [facility] Urine blood detectionOrdered By: Leif Casiano on 02-05-2023 RBC Ql (U) 250 /ul Negative [facility] RBC Ql (U) 10-25 SEEN /hpf 0-5 [facility] Urine clarityOrdered By: Jose Daniel Casiano on 02-05-2023 Clarity (U) Sl. Cloudy Clear [facility] Urine color determinationOrd ered By: Leif Casiano on 02-05-2023 Color (U) Yellow Yellow [facility] Urine glucose detectionOrder ed By: Leif Casiano on 02-05-2023 Glucose Ql (U) Normal mg/dl Normal [facility] Urine leukocyte esterase det ection by dipstickOrdered By: Leif Casiano on 02-05-2023 Leukocyte esterase Test strip Ql (U) 25 /ul Negative [facility] Urine pHOrdered By: Leif smith on 02-05-2023 pH (U) 5.0 [pH] 5.0 - 8.0 [facility] Urine sediment bacteria coun t by microscopy (number/high power field)Ordered By: Leif Casiano on 02-05-2023 Bacteria LM.HPF (Urine sed) [#/Area] 0 /[HPF] None Seen [facility] Urine specific gravity measu rementOrdered By: Leif Casiano on 02-05-2023 Specific gravity (U) [Rel density] 1.025 1.002-1.030 [facility] Urobilinogen Auto test strip Ql (U)Ordered By: Leif Casiano on 02-05-2023 Urobilinogen Ql (U) 1 mg/dl Normal [facility] No Panel Informationon 10-10 POC SARS CoV-2 Antigen Positive [facility] Cervical or vagninal specime n microscopic examination by cytology stain (reported asOrdered By: Dr. Turk on 10-01-2022 Cytology report Cyto stain Doc (Cvx/Vag) Comment . [facility] Comment on above: The Pap smear is a s creening test designed to aid in thedetection of premalignant and malignant conditions of theuterine cervix. It is not a diagnostic procedure andshould not be used as the sole means of detecting cervicalcancer. Both false-positive and false-negative reports dooccur. Detection in cervical specim en of any of human papilloma virus (HPV) 16, 18, 31, 33,Ordered By: Dr. Turk on 10-01-2022 HPV 16+18+31+33+35+39+45+51+ 52+56+58+59+66+68 DNA Probe+sig amp Ql (Cvx) Negative Negative [facility] Comment on above: This nucleic acid am plification test detects fourteen high-risk HPV types (16,18,31,33,35,39,45,51,52,56,58,59,66,68)without differentiation. Laboratory - CytologyOrdered By: Dr. Turk on 10-01-2022 Rn Recruitment Cyto stain Nom (Cvx/Vag) [ID] Comment . [facility] Comment on above: Nabeel Appel totechnologist (ASCP) Laboratory - Miscellaneous t estsOrdered By: Dr. Turk on 10-01-2022 Service comment (Unsp spec) [Interp] Comment . [facility] Comment on above: This liquid based Th inPrep(R) pap test was screened withthe use of an image guided system. Service comment (Unsp spec) [Interp] . . [facility] Liquid-based cerv Pap + CT/G C by KRIS w reflex to high-risk HPV for ASCUSOrdered By: Dr. Turk on 10-01-2022 Cytology report Cyto stain.thin prep Doc (Cvx/Vag) Comment . [facility] Comment on above: Criteria not met, HP V Genotype not performed.Performed at: [facility] [id number] Director: Laura Webster MD, Phone: [phone] at: =[facility] - [facility] [id number] Director: Laura Webster MD, Phone: [phone] No Panel InformationOrdered By: Dr. Turk on 10-01-2022 Pathology report final diagnosis Narrative Comment . [facility] Comment on above: NEGATIVE FOR INTRAEP ITHELIAL LESION OR MALIGNANCY.CELLULAR CHANGES ASSOCIATED WITH ATROPHY ARE PRESENT. HVF 24-2 STANDARD - [facility]Uon See note RADIOLOGY [facility] Radiology Study observation (narrative) [facility] Vital Signs Date Time Vital Sign Value Performing Clinician Franko ziegler 02-23-2025 18:06-0400 Body temperature 98 [degF] Cole Ríos MD Work Phone: [facility] 02-23-2025 18:06-0400 Diastolic blood pressure 82 mm[Hg] Cole Ríos MD Work Phone: [facility] 02-23-2025 18:06-0400 Heart rate 74 /min Cole Ríos MD Work Phone: [facility] 02-23-2025 18:06-0400 Respiratory rate 18 /min Cole Ríos MD Work Phone: [facility] 02-23-2025 18:06-0400 SaO2% (BldA) [Mass fraction] 97 % Cole Ríos MD Work Phone: [facility] 02-23-2025 18:06-0400 Systolic blood pressure 139 mm[Hg] Cole Ríos MD Work Phone: [facility] 02-23-2025 16:29-0400 Body height 152.4 cm Cole Ríos MD Work Phone: [facility] 02-23-2025 16:29-0400 Body mass index (BMI) [Ratio] 26.2 kg/m2 Cole Ríos MD Work Phone: [facility] 02-23-2025 16:29-0400 Body weight 60.78 kg Cole Ríos MD Work Phone: [facility] 02-05-2023 12:18-0400 Body temperature 97.8 [degF] DO Pattie Ryne Work Phone: [facility] 02-05-2023 12:18-0400 Diastolic blood pressure 79 mm[Hg] DO Pattie Ryne Work Phone: [facility] 02-05-2023 12:18-0400 Heart rate 74 /min DO Pattie Ryne Work Phone: [facility] 02-05-2023 12:18-0400 Respiratory rate 16 /min DO Pattie Ryne Work Phone: [facility] 02-05-2023 12:18-0400 SaO2% (BldA) [Mass fraction] 100 % DO Pattie Ryne Work Phone: [facility] 02-05-2023 12:18-0400 Systolic blood pressure 128 mm[Hg] DO Pattie Ryne Work Phone: [facility] 02-05-2023 10:48-0400 Body height 152.4 cm DO Pattie Ryne Work Phone: [facility] 12-10-2022 10:55-0400 Body temperature 97.8 [degF] DO Pattie Ryne Work Phone: [facility] 12-10-2022 10:55-0400 Diastolic blood pressure 64 mm[Hg] DO Pattie Rnye Work Phone: [facility] 12-10-2022 10:55-0400 Heart rate 60 /min DO Pattie Ryne Work Phone: [facility] 12-10-2022 10:55-0400 Respiratory rate 16 /min DO Pattie Ryne Work Phone: [facility] 12-10-2022 10:55-0400 SaO2% (BldA) [Mass fraction] 100 % DO Pattie Ryne Work Phone: [facility] 12-10-2022 10:55-0400 Systolic blood pressure 104 mm[Hg] DO Pattie Ryne Work Phone: [facility] 12-10-2022 09:12-0400 Body height 152.4 cm DO Pattie Ryne Work Phone: [facility] 12-10-2022 09:12-0400 Body mass index (BMI) [Ratio] 24.2 kg/m2 DO Pattie Ryne Work Phone: [facility] 12-10-2022 09:12-0400 Body weight 56.24 kg DO Pattie Ryne Work Phone: [facility] 10-10-2022 13:02-0500 Body height 152.4 cm DO Pattie Ryne Work Phone: [facility] 10-10-2022 13:02-0500 Body mass index (BMI) [Ratio] 25.4 kg/m2 DO Pattie Ryne Work Phone: [facility] 10-10-2022 13:02-0500 Body temperature 98.5 [degF] DO Pattie Ryne Work Phone: [facility] 10-10-2022 13:02-0500 Body weight 58.96 kg DO Pattie Ryne Work Phone: [facility] 10-10-2022 13:02-0500 Diastolic blood pressure 74 mm[Hg] DO Pattie Todder Work Phone: [facility] 10-10-2022 13:02-0500 Heart rate 95 /min DO Pattie Todder Work Phone: [facility] 10-10-2022 13:02-0500 Respiratory rate 14 /min DO Pattie Todder Work Phone: [facility] 10-10-2022 13:02-0500 SaO2% (BldA) [Mass fraction] 98 % DO Pattie Michele Work Phone: [facility] 10-10-2022 13:02-0500 Systolic blood pressure 122 mm[Hg] DO Pattie Todder Work Phone: [facility] 10-02-2022 08:21-0500 Body height 152.4 cm DO Pattie Michele Work Phone: [facility] 10-02-2022 08:21-0500 Body mass index (BMI) [Ratio] 25.4 kg/m2 DO Pattie Michele Work Phone: [facility] 10-02-2022 08:21-0500 Body weight 58.96 kg DO Pattie Michele Work Phone: [facility] Encounters Encounter Date Encounter Type Care Provider Facility Start: 02-23-2025 End: 02-23-2025 Emergency department patient visit Cole Ríos MD Work Phone: -Emergency Department Work Phone: Start: 12-15-2024 End: 12-15-2024 ambulatory Cole Ríos MD Work Phone: [facility] Work Phone: Start: 12-15-2024 End: 12-15-[address] Cole Ríos MD -Outpatient Breast Imaging Work Phone: Start: 12-15-2024 End: 12-15-2024 ambulatory Cole Ríos Facility:[facility] Start: 11-23-2024 End: 11-23-2024 Office outpatient visit 25 minutes Althea Allison MD Work Phone: [facility] [place] Comment on above: Low-tension glaucoma of both eyes, severe stage Start: 11-23-2024 ambulatory BRENNA TURK Facility: [facility] Start: 11-03-2024 End: 11-03-2024 ambulatory Cole Ríos MD Work Phone: [facility] Work Phone: Start: 11-03-2024 End: 11-03-2024 Patient encounter procedure Mary Kat GAME DESIGNER-C -Cat Scan, [facility] Work Phone: Start: 11-03-2024 End: 11-03-2024 ambulatory Mary Kat GAME DESIGNER Facility:[facility] Start: 10-04-2024 End: 10-04-2024 ambulatory Cole Ríos MD Work Phone: [facility] Work Phone: Start: 10-04-2024 End: 10-04-2024 Patient encounter procedure Mary Kat GAME DESIGNER-C -Radiology, [place] Work Phone: Start: 10-04-2024 End: 10-04-2024 ambulatory Mary Kat NP Facility:[facility] Start: 08-31-2024 End: 08-31-[address] Cole Ríos MD -Laboratory, [place] Work Phone: Start: 08-31-2024 End: 08-31-2024 ambulatory Cole Ríos Facility:[facility] Start: 08-04-2024 End: 08-04-2024 Patient encounter procedure Tobi Blanc GAME DESIGNER-C -Outpatient Bone Densitometry Work Phone: Start: 08-04-2024 End: 08-04-2024 ambulatory Tobi Blanc NP Facility:[facility] Start: 06-02-2024 End: 06-02-2024 ambulatory Cole Ríos Facility:[facility] Start: 05-25-2024 End: 05-25-2024 Office outpatient visit 25 minutes Althea Allison MD Work Phone: [facility] [place] Comment on above: Low-tension glaucoma of both eyes, severe stage (Primary Dx); Filamentary keratitis, left Start: 05-25-2024 ambulatory ALTHEA ALLISON Facilit y:[facility] Start: 11-12-2023 End: 11-12-2023 ambulatory [facility] Work Phone: Start: 11-12-2023 End: 11-12-2023 Patient encounter procedure [facility]-Outpatient Breast Imaging Work Phone: Start: 02-05-2023 End: 02-05-2023 Emergency department patient visit DO Pattie Michele Work Phone: [facility]-Emergency Department Work Phone: Start: 12-10-2022 Non-patient / Non-visit DO Pattie Michele Work Phone: [facility] Start: 12-10-2022 End: 12-10-2022 Admission to same day surgery center DO Pattie Michele Work Phone: [facility]-Endoscopy Start: 12-10-2022 End: 12-10-2022 ambulatory DO Pattie Michele Work Phone: [facility] Work Phone: Start: 10-26-2022 End: 10-26-2022 Office outpatient visit 15 minutes Althea Allison MD Work Phone: [facility] [place] Comment on above: Low-tension glaucoma of both eyes, severe stage (Primary Dx) Start: 10-23-2022 End: 10-23-2022 ambulatory DO Pattie Michele Work Phone: [facility] Work Phone: Start: 10-23-2022 End: 10-23-2022 Patient encounter procedure DO Pattie Michele Work Phone: [facility]-Outpatient Breast Imaging Start: 10-10-2022 End: 10-10-2022 Patient encounter procedure DO Pattie Michele Work Phone: [facility] Start: 10-02-2022 Non-patient / Non-visit DO Pattie Michele Work Phone: [facility] Start: 10-01-2022 End: 10-01-2022 ambulatory DO Pattie Michele Work Phone: [facility] Work Phone: Start: 10-01-2022 End: 10-01-2022 Patient encounter procedure DO Pattie Michele Work Phone: [facility]-Laboratory, Specimen Start: 12-16-2021 End: 12-16-2021 Patient encounter procedure Armida Longoria OD Work Phone: [facility] Comment on above: Keratoconus, stable, bilateral (Primary Dx) Start: 10-17-2021 End: 10-17-2021 Patient encounter procedure [facility]-Outpatient Breast Imaging Start: 03-19-2021 End: 03-19-2021 Office outpatient visit 25 minutes Althea Allison MD Work Phone: [facility] Comment on above: Low-tension glaucoma of both eyes, severe stage (Primary Dx); Keratoconus, bilateral Start: 03-19-2021 End: 03-19-2021 Patient encounter procedure Armida Longoria OD Work Phone: [facility] Comment on above: Keratoconus, stable, bilateral (Primary Dx) Procedures Date Procedure Procedure Detail Performing Clinician Start: 02-23-2025 CT of face Cole mcfarland MD Work Phone: Start: 02-23-2025 CT of head without contrast Cole Ríos MD Work Phone: Start: 12-15-2024 Screening mammography C joanne Ríos MD Work Phone: Start: 11-03-2024 CT of chest without contrast Cole Ríos MD Work Phone: Start: 10-04-2024 X-ray of chest, PA a nd lateral views Cole Ríos MD Work Phone: Start: 08-04-2024 Dual energy X-ray absorptiometry Cole Ríos MD Work Phone: Start: 11-12-2023 Screening mammography Start: 02-05-2023 CT of abdomen and pe lvis without contrast DO Pattie Guajardonger Work Phone: Start: 12-10-2022 Colonoscopy DO Pattie Guajardonger Work Phone: Start: 10-23-2022 Screening mammography D O Pattie Michele Work Phone: Start: 10-17-2021 Screening mammography Start: 03-19-2021 Visual field xm uni/ bi w/interp extended exam Althea Allison MD Work Phone: Plan of Treatment Date Care Activity Detail Author Start: 2033 RSV VACCINE (1 - 1-d ose 75+ series) RSV VACCINE (1 - 1-dose 75+ series) [facility] Start: 06-28-2028 Tetanus vaccination TETANUS [facility] Start: 06-01-2025 End: 06-01-2025 Patient encounter procedure 06/01/2025 11:00 AM EDT Office Visit [facility] [place] [address] [place] [address] Althea Allison MD [address] [place] [address] [facility] [place] Start: 05-03-2025 Pneumococcal vaccination [facility] Start: 04-09-2025 Influenza vaccination INFLUENZ A VACCINE (Season Ended) [facility] Start: 02-23-2025 Plain x-ray of hand Hand Min 3 Views [facility] Start: 02-23-2025 XR Hand GE 3 Views [facility] Start: 11-23-2024 End: 11-23-2024 Patient encounter procedure 11/23/2024 11:00 AM EDT Office Visit [facility] [place] [address] [place] [address] Althea Allison MD [address] [place] [address] [facility] Start: 05-25-2024 End: 05-16-2025 Perimetry study HVF 24-2 STANDARD - OU [place] - OFFICE PERFORMED IMAGING Routine Low-tension glaucoma of both eyes, severe stage Expected: 05/25/2024, Expires: 05/16/2025 [facility] Comment on above: Expected: 05/25/2024 , Expires: 05/16/2025 Start: 04-09-2024 COVID-19 VACCINE ( season) COVID-19 VACCINE ( season) [facility] Start: 04-09-2024 COVID-19 VACCINE ( season) COVID-19 VACCINE ( season) [facility] Start: 04-09-2024 Influenza vaccination INFLUENZA VACC INE (#1) [facility] Start: 12-10-2022 Colsc flx w/rmvl of tumor polyp lesion snare tq COLONOSCOPY W/LESION REMOVAL [facility] Start: 12-10-2022 Patient discharge [facility] Start: 11-16-2022 Zoster vaccine hzv l sam for subcutaneous use ZOSTER (SHINGLES) VACCINE (2 of 2) [facility] Start: 10-26-2022 End: 10-20-2023 Ophthalmic OCT panel OCT OPTIC NERVE OU [place] - OFFICE PERFORMED IMAGING Routine Low-tension glaucoma of both eyes, severe stage Expected: 10/26/2022, Expires: 10/20/2023 [facility] Comment on above: Expected: 10/26/2022 , Expires: 10/20/2023 Start: 06-23-2022 End: 06-23-2022 Patient encounter procedure 06/23/2022 Office Visit Ophthalmology Armida Longoria, DEBORAH [address] [place] [address] [facility] [place] Start: 12-26-2021 End: 12-26-2021 Patient encounter procedure 12/26/2021 Office Visit Ophthalmology Althea Allison MD [address] [place] [address] [facility] [place] Start: 08-26-2021 End: 08-26-2021 Patient encounter procedure [facility] [place] Start: 04-09-2021 Influenza vaccination INFLUENZA VACC INE (#1) [facility] Start: 2018 RSV VACCINE (1 - 1-d ose 60+ series) RSV VACCINE (1 - 1-dose 60+ series) [facility] Start: 2008 Zoster vaccine hzv l sam for subcutaneous use ZOSTER (SHINGLES) VACCINE (1 of 2) [facility] Start: 10-17-2003 Colonoscopy COLORECTAL CAN CER SCREENING DISCUSSION [facility] Start: 10-17-2003 Screening for malign ant neoplasm of colon COLORECTAL CANCER SCREENING DISCUSSION [facility] Start: 1998 Fasting lipid profile LIPID SCREENIN G [facility] Start: 1998 Lipid panel LIPID SCREENING [facility] Start: 1998 Screening for malign ant neoplasm of breast MAMMOGRAM SCREENING DISCUSSION [facility] Start: 1998 Screening mammography MAMMOGRA M SCREENING DISCUSSION [facility] Start: 10-17-1979 Screening for malign ant neoplasm of cervix CERVICAL CANCER SCREENING DISCUSSION [facility] Start: 1977 Third diphtheria, tetanus and acellular pertussis (DTaP) vaccination TDAP (ADULT) [facility] Start: 1976 Tetanus vaccination TETANUS [facility] Start: 1973 HIV screening HIV SCREENING DISCUSSI ON [facility] Start: 1970 COVID-19 VACCINE (1) COVID-19 VACCIN E (1) [facility] Start: 1968 MENINGOCOCCAL B VACC INE (1 of 4 - Increased Risk) MENINGOCOCCAL B VACCINE (1 of 4 - Increased Risk) [facility] Start: 1968 MENINGOCOCCAL B VACC INE (1 of 5 - Increased Risk) MENINGOCOCCAL B VACCINE (1 of 5 - Increased Risk) [facility] Start: 10-17-1963 COVID-19 VACCINE (#1) COVID-19 VACCI NE (#1) [facility] Start: 1960 Meningococcal conjug ate vaccination MCV4 VACCINE (1 - Risk 2-dose series) [facility] Start: 01-17-1960 Haemophilus influenz ae type b vaccination HIB VACCINE (1 of 1 - Risk 1-dose series) [facility] Start: 04-18-1959 COVID-19 VACCINE (#1) COVID-19 VACCI NE (#1) [facility] Start: 1958 Hepatitis C antibody , confirmatory test HEPATITIS C VIRUS SCREENING [facility] Start: 1958 Hepatitis C screening HEPATITI S C VIRUS SCREENING [facility] Start: 1958 Screening for osteoporosis DEXA SCAN DISCUSSION [facility] Colonoscopy [facility] Patient Education [facility] Work Phone: Patient referral [facility] Work Phone: Immunizations Immunization Date Immunization Notes Care Provider Fa cility 02-23-2025 tetanus toxoid, redu tammy diphtheria toxoid, and acellular pertussis vaccine, adsorbed Cole Ríos MD Work Phone: [facility] 09-21-2022 zoster vaccine, unspecified formulation Althea Allison MD Work Phone: [facility] 06-05-2022 influenza virus vaccine, unspecified formulation Althea Allison MD Work Phone: [facility] 06-28-2018 tetanus toxoid, redu tammy diphtheria toxoid, and acellular pertussis vaccine, adsorbed [facility] 06-20-2014 influenza, injectabl e, quadrivalent, preservative free [facility] [facility] 06-20-2014 influenza, seasonal, injectable [facility] Payers Date Payer Category Payer Self-pay [id number] 2024 Medicare [id number] 2024 Medicare [id number] 2023 Managed Care (unspecified) [employer] [id number] 2023 Unknown [id number] 2019 Unknown [facility] [id number] 2019-Present [address] [address] [place] [address] [id number] 2019 Unknown [id number] [id number]. [id number] 2016 Unknown [id number] 1960 Unknown [id number]. 594 1960 Unknown [id number] [id number]. 594 Unknown [id number] Unknown [id number] [id number]. 462 Unknown [id number] 2.16.840.1.107731.3.579.2. 462 Unknown [id number] 2.16.840.1.723737.3.579.2. 462 Unknown [id number] 2.16.840.1.108868.3.579.2. 462 Unknown [id number] 2.16.840.1.549024.3.579.2. 462 Unknown [id number] 2.16.840.1.101142.3.579.2. 462 Unknown [id number] [id number]. 462 Social History Date Type Detail Facility Start: 11-25-2018 End: 02-23-2025 Tobacco smoking status NHIS Never smoker [facility] Start: 11-25-2018 End: 10-26-2022 Tobacco use and exposure Never used [facility] Start: 03-19-2021 End: 11-23-2024 Alcohol intake Current drinker of alcohol (finding) [facility] Start: 1960 Sex Assigned At Not on file [facility] Exposure to SARS-CoV -2 (event) Not sure [facility] Start: 08-30-2020 End: 06-30-2023 Tobacco smoking status KYIS Unknown if ever smoked [facility] Start: 1960 Sex Assigned At Female W [facility] Start: 05-25-2024 End: 11-23-2024 History of Social function [facility] Start: 05-25-2024 End: 11-23-2024 Tobacco use panel [facility] Start: 10-28-2018 End: 10-19-2024 Sex Female (finding) [facility] Goals Date Patient Goal Desired Activity /State Mental Status Date Assessment Result Facility 12-10-2022 Cognitive function Voice/Name [facility] Work Phone: Clinical Notes 03-19-2021 to 02-23-2025 Marlyn Lazaro - 11/23/2024 11:00 AM Hipolito Allison MD - 11/23/2024 11:00 AM EDTRasheeda Rios - 05/25/2024 11:15 AM Hipolito Allison MD - 05/25/2024 11:15 AM EDT Note Date & Type Note Facility 02-23-2025 Radiology Diagnostic study note [facility] Imaging Services [address] [place], [place] [id number] Sinus/Facial Bone MR#: [id number] Acct: [id number] Name: LYDIA MARIEE Rep #: [id number] : 1960 F 64 From: Samira Garcia MD PCP: Dr. Cole Ríos MD Status: REG ER Study:Sinus/Facial Bone Date of Exam: Exam# [id number] Ordering Dr: Julia Pillai DO PROCEDURE: SINUS/FACIAL BONE 02/23/2025 REASON FOR EXAM: FALL TECHNIQUE: SINUS/FACIAL BONE Coronal and Sagittal reconstruction series were provided. One or more dose reduction techniques were used (e.g., Automated exposure control, adjustment of the mA and/or kV according to patient size, use of iterative reconstruction technique). RADIATION DOSE SUMMARY: CTDlvol: 73 mGy DLP: 1326.69 mGycm FINDINGS: Left frontal soft tissue swelling. Mucosal thickening in the frontal sinuses. Bilateral nasal bone fractures with fluid or blood in the anterior nasal vestibule. No definite septal thickening. Medial and lateral orbital calle maintained. No globe injury or retrobulbar hematoma. No mandibular fracture. Zygomatic arches maintained. Middle ears and mastoids clear. Medial and lateral orbital calle intact. No frontal sinus fractures. The mandibular rami, condyles and body are maintained. The orbital floor appears to be intact bilaterally. CT/Sinus/Facial Bone IMPRESSION: Bilateral nasal fractures Reading Location[facility] CC: Dr. Cole Ríos MD; Dr. Watson Pillai DO ~ Technology Resource Teacher: Signed [facility] 02-23-2025 Radiology Diagnostic study note [facility] Imaging Services [address] [place] [address] Brain/Head without Contrast MR#: [id number] Acct: [id number] Name: LYDIA MARIEE Rep #: [id number] : 1960 F 64 From: Samira Garcia MD PCP: Dr. Cole Ríos MD Status: REG ER Study:Brain/Head without Contrast Date of Exa m: 02/23/25 Exam# [id number] Ordering Dr: Julia Pillai DO PROCEDURE: BRAIN/HEAD WITHOUT CONTRAST 02/23/2025 REASON FOR EXAM: FALL TECHNIQUE: BRAIN/HEAD WITHOUT CONTRAST Coronal and Sagittal reconstruction series were provided. One or more dose reduction techniques were used (e.g., Automated exposure control, adjustment of the mA and/or kV according to patient size, use of iterative reconstruction technique. FINDINGS: The bony calvarium is intact. There are bilateral nasal bone fractures. There is no intracranial mass, hemorrhage or edema. CT/Brain/Head without Contrast IMPRESSION: Negative for intracranial hemorrhage [facility] CC: Dr. Cole Ríos MD; Dr. Wtason Pillai DO ~ Technology Resource Teacher: Signed [facility] 11-23-2024 History of Present illness Narrative REASON FOR VISIT Lydia Mariee presents to clinic today for a Established Patient visit. Chief Complaint Follow-up; Glaucoma HISTORY OF PRESENT ILLNESS HPI 6 mo Low-tension glaucoma of both eyes with HVF The patient denies loss of vision, eye pain/irritation, redness, and discharge. Pt had HVF in [place], see images Last edited by Marlyn Willis on 11/23/2024 11:14 AM. Allergies, medications & history reviewed & updated by Marlyn Willis REVIEW OF SYSTEMS ROS Positive for: Respiratory Negative for: Endocrine, Eyes, Psychiatric Last edited by Marlyn Willis on 11/23/2024 11:14 AM. >10 minutes was spent with patient updating allergies, medications, and medical history. Referring Physician: Self, Self Hx: 64 yo female with long hx of KCN, also with OAG, now on timolol and latanoprost for that. She was initially referred down to see Dr. Bonilla for possible CXL eval, he noted increased cupping and asked to be seen here for eval. She notes that she was started on combigan around 2019. No FH of glaucoma, no past eye trauma or surgery aside from CE OU. Doing well currently, vision stable from prior.. ROS: complete review of systems performed by metrology technician, reviewed by me. Meds: timolol bid, latanoprost at bedtime OU HVF: follow up, good quality, shows dense superior and inferior defects OD>OS, stable from prior. OCT: follow up, good quality, shows advanced thinning OU A/P 1)OAG: IOP remains low today on applanation although agree that with likely significantly thinner and weaker corneas likely that IOP is somewhat higher than measured. Nerves appear to have significant cupping OU and suspect that at least some of the vision changes is due to very advanced glaucoma. Possible that IOP was higher in the past prior to CE? She is doing well on timolol bid, latanoprost at bedtime, will monitor HVF's for now, appears stable again today. RTC in 6 mo's for IOP check and OCT, sooner PRN. 2)Keratitis: doing fine currently, monitor for now. documented in this encounter [facility] 11-06-2024 Radiology Diagnostic study note [facility] Imaging Services [address] [place], [place] [id number] Chest without Contrast MR#: [id number] Acct: [id number] Name: LYDIA MARIEE Rep #: [id number] : 1960 F 64 From: Fahad Harris MD PCP: Dr. Cole Ríos MD Status: REG CL I Study:Chest without Contrast Date of Exam: 11/03/24 Exam# [id number] Ordering Dr: Mary Kat NP PROCEDURE: CHEST WITHOUT CONTRAST 11/03/2024 REASON FOR EXAM: 17MM NODULE IN LEFT LUNG, ASTHMA TECHNIQUE: Chest CT without contrast. Coronal and Sagittal reconstruction series were provided. One or more dose reduction techniques were used (e.g., Automated exposure control, adjustment of the mA and/or kV according to patient size, use of iterative reconstruction technique RADIATION DOSE SUMMARY: CTDlvol: 7.33 mGy DLP: 274.6 mGycm COMPARISON: Comparison is made with prior chest radiograph dated October 04, 2024. FINDINGS: Hardware: None Lymph nodes: Small benign-appearing mediastinal lymph nodes. Heart and Vasculature: The heart is nonenlarged. Atherosclerotic calcificationsof the thoracic aorta. Thoracic aorta and pulmonary arteries have normal contours; noncontrast technique limits evaluation. Coronary Artery Calcifications: Absent Lungs and Airways: Mild emphysematous changes are present. Increased linear markings in the medial aspect of the right middle lobe suggestive of scarring. Increased linear markings at the left lung base suggestive of left basilar scarring. This most likely corresponds to the radiographic abnormality. Pleura: Unremarkable Upper Abdomen: Unremarkable Bones: Degenerative changes of the thoracic spine. CT/Chest without Contrast IMPRESSION: Findings suggestive of scarring in the medial aspect of the right upper lobe as well as at the left lung base. Reading Location: [place] [address] CC: Mary SWENSON NP-Bipin Kat; Dr. Cole Ríos MD ~ Technology Resource Teacher: Signed [facility] 10-04-2024 Radiology Diagnostic study note [facility] Imaging Services [address] [place] [address] Chest PA and Lateral MR#: [id number] Acct: [id number] Name: LYDIA MARIEE Rep #: [id number] : 1960 F 63 From: Ramesh Mascorro DO PCP: Dr. Cole Ríos MD Status: REG CL I Study:Chest PA and Lateral Date of Exam: 10/04/24 Exam# [id number] Ordering Dr: Mary aKt NP PROCEDURE: PA and lateral chest radiographs, two views REASON FOR EXAM: Wheezing TECHNIQUE: PA and lateral chest radiographs were obtained. COMPARISON: 10/2019 FINDINGS: The cardiomediastinal silhouette is similar. No pneumothorax or pleural effusion. Mild pulmonary hyperinflation. Bones are osteopenic with mild degenerative changes in the spine. Right lung is grossly clear. There is some new curvilinear opacity at the lateral left lung base on the PA view. There is also a questionable 17 mm nodule projecting over the posterior margin lower thoracic spine on the lateral view. RAD/Chest PA and Lateral IMPRESSION: New curvilinear opacity projects over the lateral left lung base on the PA view. There is also a 17 mm possible nodule projecting over the posterior inferior thorax on the lateral projection versus artifact. Short-term follow-up chest CT evaluation is recommended to evaluate these findings. Reading Location: [facility] CC: Mary Kat; Dr. Cole Ríos MD ~ Technology Resource Teacher: Signed [facility] 05-25-2024 History of Present illness Narrative REASON FOR VISIT Lydia Mariee presents to clinic today for a Follow-Up Patient visit. HISTORY OF PRESENT ILLNESS HPI 63 yr old female presents to clinic for follow up, Low-tension glaucoma OU Pt had some eye irritation and eye pain os on 05/23 and went In to [facility] office and was seen by dr. Null who placed a bandaged contact lens in left eye. Pt was diagnosed with Filamentary Keratitis os, Corneal erosion os, SPK (superficial punctate keratitis). Pt will return to dr. Null's clinic in 2 weeks to follow up. Ocular meds: Timolol bid ou Latanoprost at bedtime ou Artificial tears tid ou Restasis bid ou Erythromycin ointment tid ou Last edited by Rasheeda Rios on 05/25/2024 11:26 AM. Allergies, medications & history reviewed & updated by Rasheeda Rios REVIEW OF SYSTEMS Review of Systems >25 minutes was spent with patient updating allergies, medications, and medical history. Hx: 63 yo female with long hx of KCN, also with OAG, now on timolol and latanoprost for that. She was initially referred down to see Dr. Bonilla for possible CXL eval, he noted increased cupping and asked to be seen here for eval. She notes that she was started on combigan around 2019. No FH of glaucoma, no past eye trauma or surgery aside from CE OU. Last week developed decreased vision and pain OS, had a filament removed, BCL placed, here for follow check. ROS: complete review of systems performed by metrology technician, reviewed by me. Meds: timolol bid, latanoprost at bedtime OU, OS with BCL in place, oflox qid, adding tobradex qid HVF: follow up, good quality, shows dense superior and inferior defects OD>OS, stable from prior. OCT: follow up, good quality, shows advanced thinning OU A/P 1)OAG: IOP remains low today on applanation although agree that with likely significantly thinner and weaker corneas likely that IOP is somewhat higher than measured. Nerves appear to have significant cupping OU and suspect that at least some of the vision changes is due to very advanced glaucoma. Possible that IOP was higher in the past prior to CE? She is doing well on timolol bid, latanoprost at bedtime, will monitor HVF's for now. RTC in 6 mo's for IOP check and HVF, sooner PRN. 2)Keratitis: OS is very inflamed today, epithelium is intact but irregular. BCL removed and replaced, will stay on oflox, add tobradex qid OS, can hold latanoprost for 1-2 weeks until inflammation gets quieted down. documented in this encounter [facility] 12-10-2022 History and physi shakira note Note Date/Time December 10, 2022 9:35am [facility] Medical Records Department [address] [place] [address] History & Physical Exam 12/10/22 0934 MR#: [id number] Acct: [id number] Name: LYDIA MARIEE Rep #:[id number] : 1960 62 From: Cristofer Friend DO PCP: Pattie Michele DO Status:REG S DC Location: [place] [address] HPI - General General Date of Admission: 12/10/22 Date of Service: 12/10/22 Chief Complaint: Screening colonoscopy HPI Narrative LYDIA MARIEE, is a 62 F who presents today for a surveillance colonoscopy. She had a colonoscopy approximately 5 years ago and was discovered to have a fewpolyps that were adenomatous. She did not have any other abnormalities that were seen on that optical colonoscopy. She does not have any abdominal pain. She denies any cramping. She does not have any chest pain shortness of breath. Overall she is in very good health. [facility] Medical History (Updated 12/07/22 @ 15:22 by Alba Alvares) Allergic rhinitis, unspecified Asthma COVID-19 Gastric reflux History of colon polyps History of shingles History of steroid therapy History of urinary calculi Insomnia, unspecified Kidney stones Moderate persistent asthma, uncomplicated Post-menopausal Wears contact lenses Home Medications albuterol sulfate 90 mcg/actuation aerosol inhaler (Ventolin HFA) 1 - 2 puff inhalation Q4H PRN PRN Shortness Of Breath 03/26/15 [History Last Taken 06/19/16 05:00] montelukast 10 mg tablet 10 mg PO DAILY 01/16/16 [History Last Taken Unknown] multivitamin with folic acid 400 mcg tablet (Thera) 1 tab PO DAILY 01/16/16 [History Last Taken Unknown] trazodone 50 mg tablet 50 mg PO QHS 08/30/20 [History Last Taken Unknown] tiotropium bromide 18 mcg capsule with inhalation device (Spiriva with HandiHaler) 1 cap inhalation DAILY 01/06/22 [History Last Taken Unknown] fluticasone 250 mcg-salmeterol 50 mcg/dose blistr powdr for inhalation (Advair Diskus) 2 inh inhalation BID 12/07/22 [History Last Taken 12/10/22 06:15] Allergy/AdvReac Type Severity Reaction Status Date / Time prednisone AdvReac Other Verified 12/10/22 09:09 Family History Grandmother Alzheimer disease Heart disease Grandfather Lung cancer Mother Heart disease Father CVA (cerebral vascular accident) Surgical History (Updated 12/07/22 @ 15:22 by Alba Alvares) History of extraction of renal calculus History of splenectomy History of tonsillectomy and adenoidectomy History of tubal ligation Hx of cataract extraction Hx of section Hx of colonoscopy Hx of nasal polypectomy Social History (Updated 10/02/22 @ 08:13 by Lizeth Shaver) household members: spouse Smoking Status: Never smoker alcohol intake: never ROS Review of Systems ROS Unobtainable: other Constitutional Constitutional: Denies fatigue, fever(s), poor appetite, weight gain or weight loss ENT HEENT: Denies mouth lesions Cardiovascular Cardiovascular: Denies abdominal bloating, abdominal edema or abdominal pain Respiratory/Chest Respiratory/Chest: Denies change in mental status, change in phlegm color, chestcongestion or chest tightness Gastrointestinal Gastrointestinal: Denies belching, bloating, change in bowel habits, change in stool character, chewing difficulty, coffee ground emesis, constipation, cramping, diarrhea, dyspepsia, dysphagia, early satiety, excessive flatus, fecalincontinence, heartburn, hematemesis, hematochezia, hemorrhoids, loose stools, melena, nausea, odynophagia, rectal bleeding, tenesmus, vomiting or weight changes Genitourinary Genitourinary: Denies abdominal discomfort, burning urination or itching Musculoskeletal Musculoskeletal: Reports as per HPI; Denies muscle weakness or myalgias Integumentary Integumentary: Denies jaundice Neurologic Neurologic: Denies lack of coordination or weakness Psychiatric Psychiatric: Denies confusion, depression, memory loss, mood swings, paranoia orsuicidal ideation Endocrine Endocrinology: Denies systems reviewed and no addt'l complaints, except as documented Hematologic/Lymphatic Hematologic/Lymphatic: Denies anemia, easy bleeding, easy bruising or lymphadenopathy Allergic/Immunologic Allergic/Immunologic: Denies systems reviewed and no addt'l complaints, except as documented Vital Signs Vital Signs Vital Signs: 12/10/22 09:11 12/10/22 09:12 Temperature 97.7 F L Temperature Source Temporal Pulse Rate 78 Respiratory Rate 18 Respiratory Pattern Normal Blood Pressure 92/56 L Blood Pressure Mean 68 Blood Pressure Source Monitor Blood Pressure Position Semi-Fowlers Blood Pressure Location Right Arm Pulse Ox 100 Oxygen Delivery Method Room Air Weight Weight: 124 lb Body Mass Index (BMI) 24.2 Physical Exam Const alert General Appearance: cooperative Orientation / Consciousness: oriented to person HEENT hearing grossly normal bilaterally Head and Scalp: normal to inspection Face and Sinus: face symmetric Nose: external nose normal Mouth: oral and palatal mucosa normal Eyes conjunctivae normal General Eye: normal appearance of both eyes Neck full ROM General: normal visual inspection Lymph Lymphatic: no lymphadenopathy noted Chest inspection of chest normal and palpation of chest normal Chest: symmetrical chest wall rise Resp normal respiratory effort Effort and Inspection: able to speak in complete sentences Cardio regular rate GI non-distended Percussion: normal to percussion Rectal Exam: deferred Neuro Speech: speech normal Gait (Neuro): normal gait Assessment & Plan Assessment/Plan (1) Encounter for screening for malignant neoplasm of colon: PLAN: She was explained alternatives, risk, benefits including not withstanding bleeding, infection, sepsis, perforation, need for emergent surgery . She will have an ASA of 2. 12/10/22 0935 <Electronically signed by Cristofer Young DO> Cosigner Signature (if applicable): CC: Pattie Michele DO; Cristofer Young DO~ Signed [facility] Work Phone: 1(357) 834-967505-04-[address] [facility] 12-10-[address] [facility]03-20-2023 History of Present illness Narrative* Marlyn Willis - 10/26/2022 1:45 PM EDT REASON FOR VISIT Lydia Mariee presents to clinic today for a Established Patient visit. Chief Complaint New Patient; Glaucoma HISTORY OF PRESENT ILLNESS HPI Referred by Andrew Vann MD for uncontrolled LT Glaucoma H/O Keratoconus OU, PVD/PVS OU, Pseudophakia Patient asked about problems with loss of vision, eye pain/irritation, redness and discharge. The patient denies all except for the following: pt states went to Dr Morales and IOP was 14 OU and changed Timolol to Cosopt and then went up to 19. Pt referred here again for IOP ck. Pt just found out her insurance is not covered so will need to be referred somewhere else that is under her insurance plan.Pt states va seems about the same. Does still wear contacts when she feels like putting them in. Last edited by Marlyn Willis on 10/26/2022 1:53 PM. Allergies, medications & history reviewed & updated by Marlyn Willis REVIEW OF SYSTEMS Review of Systems 20 minutes of face to face time was spent with patient performing the metrology technician work of this visit. Referring Physician: * Althea Allison MD - 10/26/2022 1:45 PM EDT Hx: 62 yo female with long hx of KCN, also with OAG, treated with combigan for that. She was initially referred down to see Dr. Bonilla for possible CXL eval, he noted increased cupping and asked to be seen here for eval. She notes that she was started on combigan around 2019. No FH of glaucoma,no past eye trauma or surgery aside from CE OU. Doing fine, no changes in vision, still having issues with CL's so not using that frequently. ROS: complete review of systems performed by metrology technician, reviewed by me. Meds: timolol bid, latanoprost at bedtime OU. HVF: follow up, good quality, shows dense superior and inferior defects OD>OS, stable from prior. OCT: follow up, good quality, shows advanced thinning OU A/P 1)OAG: IOP remains low today on applanation although agree that with likely significantly thinner and weaker corneas likely that IOP is somewhat higher than measured. Nerves appear to have significant cupping OU and suspect that at least some of the vision changes is due to very advanced glaucoma. Possible that IOP was higher in the past prior to CE? She is doing well on timolol bid, latanopro st at bedtime, will monitor HVF's for now. RTC in 6 mo's for IOP check and HVF, sooner PRN. [facility] NotePap Smear Specimen AdequacyFebruary 2022 2:15pmComment.Satisfactory for evaluation. Endocervical component may not bedistinguished in cases of atrophy.Partially obscuring thick areas are present.[facility] INTERFACED A#[id number] Jewish HospitalComment on above:Satisfactory for evaluation. Endocervical component may not bedistinguished in cases of atrophy.Partially obscuring thick areas are present.10-01-2022 NotePap Smear Specimen AdequacyFebruary 2022 3:15pm Comment.Satisfactory for evaluation. Endocervical component may not bedistinguished in cases of atrophy.Partially obscuring thick areas are present. [facility] INTER[facility]AC[facility] A#[id number] Jewish HospitalComment on above: Satisfactory for evaluation. Endocervical component may not bedistinguished in cases of atrophy.Partially obscuring thick areas are present.10-01-2022 NotePap Smear Specimen AdequacyFebruary 2022 3:15pmComment.Satisfactory for evaluation. Endocervical component may not bedistinguished in cases of atrophy.Partially obscuring thick areas are present.[facility] INTER[facility]ACED A#[id number] [facility] HospitalComtr[facility] on above:Satisfactory for evaluation. Endocervical component may not bedistinguished in cases of atrophy.Partially obscuring thick areas are present.12-16-2021 History of Present illness Narrative* Belen Everton - 12/16/2021 10:15 AM EDT REASON FOR VISIT Lydia Mariee presents to clinic today for a Established Patient visit. Chief Complaint Follow-up HISTORY OF PRESENT ILLNESS HPI Follow-up Additional comments: Scleral lens follow up Comments 61 y.o. female presents for Follow up evaluation with history of keratoconus Concerns discussed are as follows: -Patient states OD lens is difficult to get in -Patient states that comfort and vision is okay -Patient states that hopefully this is the last trip here as she drives from far away -Patient admits she gets bubbles OU but does not have time to keep putting them back in, etc Eye: OU Lens Type: Scleral Wear time today: 5 hours Average hours: 9 hours per day Average days per week: 4-5 days Cleaning routine/solutions used: Clear Care Application/filling solution used: NaCl vials Sleeping in lenses: No Showering/Swimming in lenses: No Topping off solution: No Age of CL case: Changes with new bottle of clearcare OTC Drops used: Blink OU TID, olapatadine Prescribed Drops Used: Combigan bid OU Last edited by Belen Toscano on 12/16/2021 10:31 AM. (History) Allergies, medications & history reviewed & updated by Belen Toscano REVIEW OF SYSTEMS Review of Systems 15 minutes of face to face time was spent with patient performing the metrology technician work of this visit. Referring Physician: * Armida Longoria, OD - 12/16/2021 10:15 AM EDT REASON FOR VISIT Lydia Mariee presents to clinic today for a Established Patient visit. She reports Chief Complaint Patient presents with Follow-up Scleral lens follow up HISTORY OF PRESENT ILLNESS HPI Follow-up Additional comments: Scleral lens follow up Comments 61 y.o. female presents for Follow up evaluation with history of keratoconus Concerns discussed are as follows: -Patient states OD lens is difficult to get in -Patient states that comfort and vision is okay -Patient states that hopefully this is the last trip here as she drives from far away -Patient admits she gets bubbles OU but does not have time to keep putting them back in, etc Eye: OU Lens Type: Scleral Wear time today: 5 hours Average hours: 9 hours per day Average days per week: 4-5 days Cleaning routine/solutions used: Clear Care Application/filling solution used: NaCl vials Sleeping in lenses: No Showering/Swimming in lenses: No Topping off solution: No Age of CL case: Changes with new bottle of clearcare OTC Drops used: Blink OU TID, olapatadine Prescribed Drops Used: Combigan bid OU Last edited by Bleen Toscano on 12/16/2021 10:31 AM. (History) REVIEW OF SYSTEMS ROS Positive for: Eyes (dry eyes and blurred vision), Allergic/Imm (seasonal allergies ) Negative for: Constitutional, Gastrointestinal, Neurological (denies any headaches ), Skin, Genitourinary, Musculoskeletal, HENT (no cough), Endocrine, Cardiovascular, Respiratory (denies any sob), Psychiatric, Heme/Lymph (olopat) Last edited by Belen Toscano on 12/16/2021 10:15 AM. (History) Referring Provider: Self Self No address on file I have reviewed the patient's medical history in detail and updated the computerized patient recordas needed Vision: Method: Snellen - Linear Contacts Correction: Contacts Visual Acuity (VA): OD OS sc: cc: 20/40 20/60 -2 ph sc: ph cc: 20/30 20/40 Near sc: Near cc: J2 w readers J2 w readers Objective: see ophthalmology exam Assessment: 1. Keratoconus OU - followed by Dr. Bonilla 2. Scleral lens wear - residual epithelial irregularity from previous abrasion - patient continues to have difficulty with application/removal (notes OS much easier to insert) - Mae 15.5 follow up 12/16/2021 - lids would not allow sMap - BSS would be much better fit but unable to insert due to aperture 3. OAG - followed by Dr. Allison - visual field loss OD>OS limiting vision potential 4. PCIOL OU Plan: 1. Continue care w/ Dr. Bonilla as instructed. 2. Educated patient on exam findings. Continue lens wear OD. OS lens broke while cleaning- spoke with Flakita at and will replace at [place]. We will ship lens to patient when arrives) Remove lenses with any pain, redness, or change in vision and contact office. No sleeping, swimming, or use of tap water with lenses. Clean nightly with [employer] per cleaning instructions. Patient acknowledged understanding in their own voice. Monitor 4-6 months 3-4. Continue drops as prescribed. Monitor with Dr. Allison as planned. Optometry assistant superintendent present during care and examination of patient. I saw and independently examined this patient today. Next Visit: Scleral lens follow up/ cornea check Testing/Additional: Topography Dilate: None Iraj applanation: OU Follow up : in 4 months [facility] History of Present illness Narrative* Althea Allison MD - 03/19/2021 11:00 AM EDT Hx: 60 yo female with long hx of KCN, also with OAG, treated with combigan for that. She was initially referred down to see Dr. Bonilla for possible CXL eval, he noted increased cupping and asked to be seen here for eval. She notes that she was started on combigan around 2019. No FH of glaucoma,no past eye trauma or surgery aside from CE OU. Doing fine, no changes in vision, still having issues with CL's. ROS: complete review of systems performed by metrology technician, reviewed by me. Meds: combigan bid OU HVF: follow up, good quality, shows dense superior and inferior defects OD>OS, stable from prior. A/P 1)OAG: IOP remains low today on applanation although agree that with likely significantly thinner and weaker corneas likely that IOP is somewhat higher than measured. Nerves appear to have significant cupping OU and suspect that at least some of the vision changes is due to very advanced glaucoma. Possible that IOP was higher in the past prior to CE? Will stay on combigan bid OU for now. RTC In 4 mo's for IOP check and OCT, sooner PRN. * Katarina Guan - 03/19/2021 11:00 AM EDT REASON FOR VISIT Lydia Mariee presents to clinic today for a Established Patient visit. Chief Complaint Glaucoma HISTORY OF PRESENT ILLNESS HPI 60 y/o female who is here for low tension glc follow up. She reports stable vision. She denies any eye pain, flashes or floaters. Last edited by Katarina Guan on 03/19/2021 10:26 AM. (History) Allergies, medications & history reviewed & updated by Katarina Guan REVIEW OF SYSTEMS Review of Systems Constitutional: Negative for fever. HENT: Negative for hearing loss. Allergic/Immunologic: Positive for environmental allergies (seasonal allergies). Neurological: Negative for tremors. 15 minutes of face to face time was spent with patient performing the metrology technician work of this visit. [facility] History of Present illness Narrative* Armida Longoria, OD - 03/19/2021 10:00 AM EDT REASON FOR VISIT Lydia Mariee presents to clinic today for a Established Patient visit. She reports Chief Complaint Patient presents with Follow-up HISTORY OF PRESENT ILLNESS HPI 60 y.o. female presents for Scleral CL OU Follow up evaluation with history of Keratoconus. Pt alsoseeing Dr. Allison today. Concerns discussed are as follows: Patient acknowledged their name and self in their own voice. Pt is doing OK with CL's OU. She still has a difficult time getting CL's in at times. Comfort & vision are OK OU, but sometimes she will have some pain after removing the CL's. Eye: OU Lens Type: Scleral Wear time today: 6 hours Average hours: 6-8 hours per day Average days per week: 2 days Cleaning routine/solutions used: Clear care Application/filling solution used: sodium chloride Sleeping in lenses: No Showering/Swimming in lenses: No Topping off solution: No Age of CL case: 2 weeks OTC Drops used: None and Blink OU TID, Alaway prn OU and olapatadine Prescribed Drops Used: Combigan bid OU Last edited by Michaelle Shin on 03/19/2021 10:59 AM. (History) REVIEW OF SYSTEMS ROS Positive for: Eyes (Bilateral keratoconus and intermittent dryness OU), Allergic/Imm (seasonal allergies ) Negative for: Constitutional, Gastrointestinal, Neurological (denies any headaches ), Skin, Genitourinary, Musculoskeletal, HENT, Endocrine, Cardiovascular, Respiratory (denies any sob), Psychiatric,Heme/Lymph Last edited by Beronica Villeda on 03/19/2021 10:23 AM. (History) Referring Provider: Self Self No address on file I have reviewed the patient's medical history in detail and updated the computerized patient recordas needed Vision: Method: Snellen - Linear Contacts Correction: Contacts Visual Acuity (VA): OD OS sc: cc: 20/40 20/50 ph sc: ph cc: NI 20/40 Near sc: Near cc: Objective: see ophthalmology exam Assessment: 1. Keratoconus OU - followed by Dr. Bonilla 2. Scleral lens wear - residual epithelial irregularity from previous abrasion - patient continues to have difficulty with application/removal - would benefit to refit with [employer] for channels (comfort/removal) + would improve vision - current lenses are 2 years old 3. OAG - followed by Dr. 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 PCIOL OU Plan: 1-2. Educated patient on exam findings. Continue lens wear OU. Remove lenses with any pain, redness, or change in vision and contact office. No sleeping, swimming, or use of tap water with lenses. Clean nightly with Clear Care per cleaning instructions. Patient acknowledged understanding in their own voice.Monitor 5 months - patient would benefit greatly from refit due to design changes and availability in smaller diameter. Patient notes has VSP at work- advised need to sign up for thisduring open enrollment to be able to use 08/09/2021. 3-4. Seeing Dr. Allison today Next Visit: Scleral lens follow up/ cornea check/ possible refit VSP Testing/Additional: topography Follow up : in 5 months * Michaelle Shin - 03/19/2021 10:00 AM EDT REASON FOR VISIT Lydia Mariee presents to clinic today for a Follow-Up Patient visit. Chief Complaint Follow-up HISTORY OF PRESENT ILLNESS HPI 60 y.o. female presents for Scleral CL OU Follow up evaluation with history of Keratoconus. Pt alsoseeing Dr. Allison today. Concerns discussed are as follows: Patient acknowledged their name and self in their own voice. Pt is doing OK with CL's OU. She still has a difficult time getting CL's in at times. Comfort & vision are OK OU, but sometimes she will have some pain after removing the CL's. Eye: OU Lens Type: Scleral Wear time today: 6 hours Average hours: 6-8 hours per day Average days per week: 2 days Cleaning routine/solutions used: Clear care Application/filling solution used: sodium chloride Sleeping in lenses: No Showering/Swimming in lenses: No Topping off solution: No Age of CL case: 2 weeks OTC Drops used: None and Blink OU TID, Alaway prn OU and olapatadine Prescribed Drops Used: Combigan bid OU Last edited by Michaelle Shin on 03/19/2021 10:59 AM. (History) by Michaelle Shin REVIEW OF SYSTEMS Review of Systems 10 minutes of face to face time was spent with patient performing the metrology technician work of this visit. Referring Physician:self [facility] Instructions* Patient Instructions* Armida Longoria OD - 03/19/2021 10:00 AM EDT New scleral lenses would help with comfort, application, and removal. Vision would likely improve as well. VSP insurance- may be able to sign up through HR in open enrollment. VSP must have medically necessary benefit. Only patient responsibility is copay documented [facility] HospitalChief complaint+Reason for visit Narrative* Chief Complaint Amb Documentation COVID POSITIVE SCREENING Reason for Visit COVID-19 [facility] Work Phone: Chief complaint+Reason for visit Narrative* Chief Complaint Amb Documentation COVID POSITIVE SCREENING Reason for Visit COVID-19 Encounter for screening for malignant neoplasm of colon [facility] Work Phone: Chief complaint+Reason for visit Narrative* Chief Complaint COVID POSITIVE SCREENING flank pain Reason for Visit COVID-19 Encounter for screening for malignant neoplasm of colon [facility] Work Phone: Discharge summary Author Leif Casiano [facility] February 05, 2023 12:26pm Note Date/Time February 05, 2023 11:0 5am [facility] Medical Records Department [address] [place] [address] Emergency Department Summary 02/05/23 MR#: [id number] Acct: [id number] Name: LYDIA MARIEE Rep #:[id number] : 1960 62 From: Leif Casiano MD PCP: Pattie Michele, DO Status:REG E R Location: ED HPI HPI - Female History of Present Illness Chief Complaint: Flank Pain Detail of Chief Complaint: Right flank pain. Pain Current Severity: Moderate Maximum Severity: Moderate Associated Symptoms Associated Symptoms: Positive for Urgency Narrative Narrative: 62-year-old female history of 5 prior kidney stones. 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 States she started having urinary urgency last night. No dysuria. No hematuria. Right flank pain somewhat hour or so consistent with her prior kidney stones. Nausea and vomiting. No diarrhea or fever. Prior similar symptoms: Yes Recent Illness/Hospitalization: No PFSH PFSH Medical History Allergic rhinitis, unspecified Asthma COVID-19 Gastric reflux History of colon polyps History of shingles History of steroid therapy History of urinary calculi Insomnia, unspecified Kidney stones Moderate persistent asthma, uncomplicated Post-menopausal Wears contact lenses Home Medications albuterol sulfate 90 mcg/actuation aerosol inhaler (Ventolin HFA) 1 - 2 puff inhalation Q4H PRN PRN Shortness Of Breath 03/26/15 [History Last Taken 06/19/16 05:00] montelukast 10 mg tablet 10 mg PO DAILY 01/16/16 [History Last Taken Unknown] multivitamin with folic acid 400 mcg tablet (Thera) 1 tab PO DAILY 01/16/16 [History Last Taken Unknown] trazodone 50 mg tablet 50 mg PO QHS 08/30/20 [History Last Taken Unknown] tiotropium bromide 18 mcg capsule with inhalation device (Spiriva with HandiHaler) 1 cap inhalation DAILY 01/06/22 [History Last Taken Unknown] fluticasone 250 mcg-salmeterol 50 mcg/dose blistr powdr for inhalation (Advair Diskus) 2 inh inhalation BID 12/07/22 [History Last Taken 12/10/22 06:15] ondansetron 4 mg disintegrating tablet 4 mg PO Q8H PRN nausea and vomiting #7 tabs 02/05/23 [Rx Last Taken Unknown] oxycodone-acetaminophen 5 mg-325 mg tablet (Percocet) 1 tab PO Q4H PRN pain 3 days #12 tabs 02/05/23 [Rx Last Taken Unknown] tamsulosin 0.4 mg capsule (Flomax) 0.4 mg PO DAILY 4 days #4 caps 02/05/23 [Rx Last Taken Unknown] Allergy/AdvReac Type Severity Reaction Status Date / Time prednisone AdvReac Other Verified 12/10/22 09:09 Family History Grandmother Alzheimer disease Heart disease Grandfather Lung cancer Mother Heart disease Father CVA (cerebral vascular accident) Surgical History History of extraction of renal calculus History of splenectomy History of tonsillectomy and adenoidectomy History of tubal ligation Hx of cataract extraction Hx of section Hx of colonoscopy Hx of nasal polypectomy Social History household members: spouse Smoking Status: Never smoker alcohol intake: never ROS ROS ED ROS Narrative Right flank pain. Nausea and vomiting. Review of Systems ROS Unobtainable: Denies due to encephalopathy Constitutional Constitutional ED: Denies chills or fever(s) Eyes Eyes: Denies blurry vision ENT ENT ED: Denies ear pain Cardiovascular Cardiovascular: Denies chest pain Respiratory/Chest Respiratory/Chest: Denies cough or dyspnea Gastrointestinal Gastrointestinal: Reports abdominal pain, nausea and vomiting; Denies constipation, diarrhea or melena Genitourinary Genitourinary ED: Denies dysuria or hematuria Integumentary Denies abscess Neurologic Neurologic: Denies headache(s) Psychiatric Psychiatric: Denies anxiety Endocrine Endocrinology: Denies heat intolerance Hematologic/Lymphatic Hematologic/Lymphatic: Denies easy bleeding Allergic/Immunologic Allergic/Immunologic ED: Denies mouth swelling EXAM Physical Exam Narrative Exam Narrative: 62-year-old female complain right flank pain. Vital signs stable afebrile. Accompanied by her sister and . H EENT exam unremarkable. Neck nontender no JVD. Lungs clear. Heart regular rhythm. Abdomen soft nontender. Moving all 4 extremities. Flank nontender. Const Vital Signs: 02/05/23 10:48 Temperature 97.4 F L Temperature Source Temporal Pulse Rate 62 Respiratory Rate 20 H Blood Pressure 131/69 H Blood Pressure Mean 89 Pulse Ox 98 Oxygen Delivery Method Room Air Positive well nourished and well developed; Negative for cachectic, contracturesor unkempt General Appearance ED: well developed and NAD; Negative for unkempt, cachectic, contractures or pallor Nutritional Appearance: Negative for cachectic HEENT Reports moist mucous membranes Negative for trauma or tenderness Eyes PERRL and EOMs intact bilaterally General Eye ED: Negative for pale conjunctiva, scleral icterus or other Neck no lymphadenopathy, supple and no JVD General: Negative for other Thyroid: Negative for tender Lymph Lymphatic: Negative for other Chest Wall inspection of chest normal and palpation of chest normal Chest: Negative for other Resp normal respiratory effort and clear to auscultation bilaterally Effort and Inspection: Negative for pain with movement Auscultation: Negative for rales, rhonchi or wheezes Cardio regular rate, regular rhythm, S1 normal heart sound, no murmurs and no JVD Rate: Negative for bradycardia Rhythm: Negative for abnormal rhythm GI normal to inspection, nondistended, normoactive bowel sounds, soft to palpation,non-tender, non-distended and no masses Auscultation: normoactive bowel sounds Palpation: Negative for tender, guarding or rigid Back/Spine no CVA tenderness General Back: Negative for CVA tenderness Cervical Spine: Negative for cervical spine tenderness Thoracic Spine / Upper Back: Negative for thoracic spinal tenderness Lumbar Spine / Lower Back: Negative for lumbar spinal tenderness Sacrum: Negative for other Extremity normal to inspection and full ROM General Extremety ED: Negative for edema General Extremity: Negative for edema Neuro oriented x3 and CN's II-XII intact bilaterally Sensorium / Orientation: alert, oriented to person, oriented to place and oriented to time; Negative for confused, lethargic or stuporous Motor Exam: strength 5/5 throughout; Negative for general weakness or strength abnormal Psych mental status grossly normal Appearance: Negative for unkempt Attitude: No agitated Speech: No other Mood & Affect: Negative for depressed, anxious or tearful Skin no rashes or lesions noted General Skin Exam: Negative for jaundice or pallor Rashes: No rashes noted MDM MDM MDM Narrative Medical decision making narrative: 62-year-old female with right flank pain for the last 1 to 2 hours. History of prior kidney stones. CAT scan and labs and urinalysis being obtained. Treated with morphine and Toradol for pain. Zofran for nausea. Repeat exam patient doing well at 12:15 PM. She will be given another dose of morphine for pain. She is comfortable being discharged home. We went over all of her test results and CAT scan. Percocet at home for pain. Zofran for nausea. Flomax. Follow-up with not improving. Return if worse. History & Record Review Discussion w/independent historian: Patient Additional record(s) reviewed:: Prior inpatient record, Prior outpatient record,Prior ED visit and Prior labs Lab Data Attestation: I reviewed the patient's lab results. Lab results narrative: CBC unremarkable. White count of 10. H&H 14 and 43. Platelets 469. Electrolytes show a gap of 5. Normal BUN and creatinine of 0.7. Glucose 109. UA shows blood but no infection. CAT scan shows a 2.7 mm right UVJ stone. Labs: Laboratory Results - last 24 hr 02/05/23 02/05/23 11:10 11:20 WBC 10.7 RBC 4.59 Hgb 14.6 Hct 43.0 MCV 93.7 MCH 31.8 MCHC 34.0 RDW Std Deviation 43.7 RDW Coeff of Geo 12.7 Plt Count 469 H MPV 9.8 Immature Gran % (Auto) 0.200 Neut % (Auto) 53.8 Lymph % (Auto) 27.1 Storey % (Auto) 10.2 H Eos % (Auto) 7.9 H Baso % (Auto) 0.8 Absolute Neuts (auto) 5.8 Absolute Lymphs (auto) 2.91 Nucleated RBC % 0 Sodium 137 Potassium 4.0 Chloride 107 Carbon Dioxide 25.0 Anion Gap 5 BUN 16 Creatinine 0.72 Est GFR (MDRD) Af Amer 106 Est GFR (MDRD) Non-Af 87 BUN/Creatinine Ratio 22.3 H Glucose 109 H Calcium 9.4 Urine Color Yellow Urine Clarity Sl. Cloudy Urine pH 5.0 Ur Specific [place] 1.025 Urine Protein 30 H Urine Glucose (UA) Normal Urine Ketones 5 H Urine Occult Blood 250 H Urine Nitrite Negative Urine Bilirubin Negative Urine Urobilinogen 1 H Ur Leukocyte Esterase 25 H Urine RBC 10-25 SEEN Urine WBC 0 SEEN Ur Squamous Epith Cells 0 SEEN Urine Bacteria 0 SEEN Urine Mucus 0 SEEN Radiography Diagnostic Testing: Clinical Impression(s) from Imaging Studies Abdomen/Pelvis CT 02/05/23 10:58 IMPRESSION: 2.7 mm calculus at the right ureterovesical junction. The urinary bladder is empty. Electronically Signed: Juni Harris MD at 12:05 EDT , Discharge Plan Triage Chief Complaint: Flank Pain ED Provider: Leif Casiano Dx/Rx/DC Orders Clinical Impression: Kidney stone on right side Instructions: ED Kidney Stone w/ Colic Prescriptions: New oxycodone-acetaminophen [Percocet] 5-325 mg tablet 1 tab PO Q4H PRN (Reason: pain) 3 Days Qty: 12 0RF ondansetron 4 mg tablet,disintegrating 4 mg PO Q8H PRN (Reason: nausea and vomiting) Qty: 7 0RF tamsulosin [Flomax] 0.4 mg capsule 0.4 mg PO DAILY 4 Days Qty: 4 0RF No Action Spiriva with HandiHaler 18 mcg capsule, w/inhalation device 1 cap inhalation DAILY Rx Instructions: puncture 1 cap using device; one dose = 2 inhalations albuterol sulfate [Ventolin HFA] 1 INHALER inhaler 1 - 2 puff inhalation Q4H PRN PRN (Reason: Shortness Of Breath) Patient Comments: BREATHING montelukast 10 MG tablet 10 mg PO DAILY multivitamin with folic acid [Thera] 1 TABLET tablet 1 tab PO DAILY trazodone 50 MG tablet 50 mg PO QHS fluticasone propion-salmeterol [Advair Diskus] 250-50 mcg/dose blister with device 2 inh INHALATION BID Patient Comments: INHALE 1 PUFF BY MOUTH 2UTIMES A SALEEM Primary Care Provider: Pattie Michele Referrals: Pattie Michele, DO [Primary Care Provider] - As Needed Activity Restrictions/Additional Instructions: Your labs and urine look good. Normal kidney function. No urinary tract infection. CAT scan showed a 2.7 mm kidney stone down by your bladder. It should pass without significant difficulty. Flomax daily. Zofran as needed for nausea. Percocet for pain. Do not drink ordrive while using the Percocet. Plenty of fluids and rest. Follow-up as needed. This stone should pass in the next several days. Disposition Disposition: Home, Self Care What to do if you have Problems For any increased pain, shortness of breath, bleeding, nausea or vomiting, chestpain, or any unexpected problems, contact your Primary Care Provider. Call [facility] ([phone]) or report to the closest Emergency Room. Call 911 if necessary. 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 Keratoconus, bilateral [facility] Diagnosis Keratoconus, stable, bilateral- Primary [facility] note[facility] assessment information available [facility] Work Phone: Evaluation note* Diagnosis Keratoconus, stable, bilateral- Primary [facility] Diagnosis Low-tension glaucoma of both eyes, 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 [facility] Diagnosis Onset Date Resolution Status COVID-19 acute [facility] Work Phone: Evaluation note* Diagnosis Onset Date Resolution Status COVID-19 acute Encounter for screening for malignant neoplasm of colo n acute [facility] Work Phone: Evaluation note* Diagnosis Low-tension glaucoma of both eyes, 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 Normal kidney function. No urinary tract infection. CAT scan showed a 2.7 mm kidney stone down by your bladder. It should pass without significant difficulty. Flomax daily. Zofran as needed for nausea. Percocet for pain. Do not drink or drive while using the Percocet. Plenty of fluids and rest. Follow-up as needed. This stone should pass in the next several days.[facility] Work Phone: Reason for referral (narrative)No reason for referral information availableWPremier Health [facility] Work Phone: Chief Complaint and Reason for Visit Chief Complaint SCREENING Chief Complaint Amb Documentation Chief Complaint Admit Date OSTEOPOROSIS August 04, 2024 12:14pm E-ORDER August 31, 2024 1 0:45am WHEEZING October 04, 2024 12:41pm Chief Complaint Admit Date OSTEOPOROSIS August 04, 2024 12:14pm E-ORDER August 31, 2024 1 0:45am WHEEZING October 04, 2024 12:41pm LUNG NODULE November 03, 2024 1:4 5pm Chief Complaint Admit Date E-ORDER August 31, 2024 1 0:45am WHEEZING October 04, 2024 12:41pm LUNG NODULE November 03, 2024 1:4 5pm SCREENING December 15, 2024 10:47a m Chief Complaint Admit Date LUNG NODULE November 03, 2024 1:4 5pm SCREENING December 15, 2024 10:47a m fall February 23, 2025 4:29 pm Advance Directives No Advanced Directives Records Found Advance Directive Response Recorded Date/ Time Advance Directives Yes June 15, 2016 4:08pm Living Will Yes August 30 10:59pm Power of Gauge Machine Operator Yes August 30, 2020 10:59pm Advance Directive Response Recorded Date/ Time Advance Directives Yes June 15, 2016 3:08pm Living Will Yes August 30 9:59pm Power of Gauge Machine Operator Yes August 30, 2020 9:59pm Advance Directive Response Recorded Date/ Time Name of Medical Power of Gauge Machine Operator JOHN LEONG December 07, 2022 3:22pm Advance Directives Yes June 15, 2016 4:08pm Living Will Yes December 07, 2022 3: 22pm Power of Gauge Machine Operator Yes December 07, 2022 3:22pm Advance Directive Response Recorded Date/ Time Name of Medical Power of Gauge Machine Operator JOHN LEONG December 07, 2022 3:22pm Name of Medical Power of Gauge Machine Operator EDGARDO February 05, 2023 11:26am Advance Directives Yes June 15, 2016 4:08pm Living Will Yes February 05, 2023 11:26am Power of Gauge Machine Operator Yes February 05 11:26am Advance Directive Response Recorded Date/ Time Advance Directives Yes June 15, 2016 4:08pm Living Will Yes February 05, 2023 11:26am Power of Gauge Machine Operator Yes February 05 11:26am Advance Directive Response Recorded Date/ Time Advance Directives Yes June 15, 2016 4:08pm Advance Directive Response Recorded Date/ Time Do you have a Healthcare Power of Gauge Machine Operator? Yes February 23, 2025 4:41pm Advance Directives Yes June 15, 2016 4:08pm Family History No Family History Records Found Relationship Condition Age at Onset Recorded Date/T [place] grandmother Alzheimer's disease Unknown Cardiac disease Unknown grandfather Malignant neoplasm of lung Unknown mother Cardiac disease Unknown father Cerebrovascular accident (CVA) Unknown Summary Purpose Additional Source Comments Reason for Visit (unrecogniz ed section and content) Reason Comments Glaucoma Reason Comments Follow-up Reason Comments Follow-up Scleral lens follow up Reason Comments New Patient Glaucoma Specialty Diagnoses / Procedures Referred By Contjd t Referred To Contact Ophthalmology Diagnoses Low-tension glaucoma of both eyes, severe stage Andrew Vann MD [address] [place] [address] Althea Alliosn MD [address] [facility] [address] [place] [address] Referral ID Status Reason Start Date Expiration Date Visits Re quested Visits Authorized [id number] Denied 10/09/2022 11/03/2023 1 0 Reason Comments Follow-up Glaucoma Care Teams (unrecognized sec tion and content) Wireless Architect Relationship Specialty Start Date End Date Brenna Turk MD [address] [place], [place] [id number] PCP - General Family Medicine 10/28/18 Wireless Architect Relationship Specialty Start Date End Date Brenna Turk MD [address] [place], [place] [id number] PCP - General Family Medicine 10/28/18 Team Status: Active Member Role Status Dates Dr. Brenna Ott MD Family Provider Active Pattie Michele DO Primary Care Provider Active Team Status: Active Member Role Status Dates Pattie Michele DO Primary Care Provider Active Lizeth Shaver Attending Provider Active Team Status: Inactive Member Role Status Dates Dr. Brenna Ott MD Primary Care Provider Active Dr. Terrell Turk MD Attending Provider Active Wireless Architect Relationship Specialty Start Date End Date Brenna Turk MD [address] [place], [place] [id number] PCP - General Family Medicine 10/28/18 Team Status: Inactive Member Role Status Dates Pattie Michele DO Primary Care Provider, Referring Provider Active José Miguel Escobedo PA, PA Attending Provider Active Team Status: Inactive Member Role Status Dates Dr. Terrell Turk MD Attending Provider, Referring Pr ovider Active Pattie Michele DO Primary Care Provider Active Team Status: Active Member Role Status Dates Pattie Michele DO Primary Care Provider, Referring Provider Active Dr. Cristofer Young , Attending Provider, Other Prov ider Active Team Status: Inactive Member Role Status Dates Pattie Michele DO Primary Care Provider, Referring Provider Active Dr. Cristofer Young , Attending Provider Active Team Status: Inactive Member Role Status Dates Pattie Michele DO Primary Care Provider Active Dr. Leif Casiano MD Emergency Provider Active Team Status: Inactive Member Role Status Dates Pattie Michele DO Primary Care Provi alirio, Attending Provider, Referring Provider Active Wireless Architect Relationship Specialty Start Date End Date Brenna Turk MD [address] [place], [place] [id number] PCP - General Family Medicine 10/28/18 Team Status: Active Member Role Status Dates Cole Ríos MD Primary Care Provider Active Team Status: Inactive Member Role Status Dates Cole Ríos MD Primary Care Provider Active St art: August 04, 2024 End: August 04, 2024 Tobi Blanc GAME DESIGNER, GAME DESIGNER-C Attending Provider Active Start: August 04, 2024 End: August 04, 2024 Tobi Blanc GAME DESIGNER, GAME DESIGNER-C Referring Provider Active Start: August 04, 2024 End: August 04, 2024 Team Status: Inactive Member Role Status Denis Ríos MD Primary Care Provider Active St art: August 31, 2024 End: August 31, 2024 Cole Ríos MD Attending Provider Active Start : August 31, 2024 End: August 31, 2024 Cole Ríos MD Referring Provider Active Start : August 31, 2024 End: August 31, 2024 Team Status: Inactive Member Role Status Denis Ríos MD Primary Care Provider Active St art: October 04, 2024 End: October 04, 2024 Mary Kat GAME DESIGNER, GAME DESIGNER-C Attending Provider Active Start: October 04, 2024 End: October 04, 2024 Mary Kat GAME DESIGNER, GAME DESIGNER-C Referring Provider Active Start: October 04, 2024 End: October 04, 2024 Team Status: Inactive Member Role Status Denis Ríos MD Primary Care Provider Active St art: November 03, 2024 End: November 03, 2024 Mary Kat GAME DESIGNER, GAME DESIGNER-C Attending Provider Active Start: November 03, 2024 End: November 03, 2024 Mary Kat GAME DESIGNER, GAME DESIGNER-C Referring Provider Active Start: November 03, 2024 End: November 03, 2024 Wireless Architect Relationship Specialty Start Date End Date Brenna Turk MD PCP - General Family Medicine 10/28/18 Team Status: Inactive Member Role Status Denis Ríos MD Primary Care Provider Active St art: December 15, 2024 End: December 15, 2024 Cole Ríos MD Attending Provider Active Start : December 15, 2024 End: December 15, 2024 Cole Ríos MD Referring Provider Active Start : December 15, 2024 End: December 15, 2024 Team Status: Active Member Role/Relationship Status Denis Ríos MD Primary Care Provider Active Team Status: Inactive Member Role/Relationship Status Denis Ríos MD Primary Care Provider Active St art: November 03, 2024 End: November 03, 2024 Mary Kat NP, GAME DESIGNER-C Attending Provider Active Start: November 03, 2024 End: November 03, 2024 Mary Kat GAME DESIGNER, GAME DESIGNER-C Referring Provider Active Start: November 03, 2024 End: November 03, 2024 Team Status: Inactive Member Role/Relationship Status Dates Cole Ríos MD Primary Care Provider Active St art: December 15, 2024 End: December 15, 2024 Cole Ríos MD Attending Provider Active Start : December 15, 2024 End: December 15, 2024 Cole Ríos MD Referring Provider Active Start : December 15, 2024 End: December 15, 2024 Team Status: Inactive Member Role/Relationship Status Dates Cole Ríos MD Primary Care Provider Active St art: February 23, 2025 End: February 23, 2025 Dr. Watson Pillai , Emergency Provider Active S tart: February 23, 2025 End: February 23, 2025 Goals (unrecognized section and content) Goals may be documented in a n alternate sectionGoals may be documented in an alternate sectionGoals may be documented in an alternate sectionGoals may be documented in an alternate sectionGoals may be documented in an alternate sectionGoals may be documented in an alternate sectionGoals may be documented in an alternate sectionGoals may be documented in an alternate sectionGoals may be documented in an alternate section INFORMATION SOURCE (unrecogn ized section and content) DATE CREATED AUTHOR 11/25/2024 [facility] DATE CREATED AUTHOR AUTHOR'S OLYAIZ ATION 02/28/2025 [facility] FOR RECORDS PERTAINING TO PATIENTS WHO ARE OR HAVE BEEN ENROLLED IN A CHEMICAL DEPENDENCY/SUBSTANCEABUSE PROGRAM, SOME INFORMATION MAY BE OMITTED. This clinical summary was aggregated from multiple sources. Caution should be exercised in using it in the provision of clinical care. This summary normalizes information from multiple sources, and as a consequence, information in this document may materially change the coding, format and clinical context of patient data. In addition, data may be omitted in some cases. CLINICAL DECISIONS SHOULD BE BASED ON THE PRIMARY CLINICAL RECORDS. [employer] provides no warranty or guarantee of the accuracy or completeness of information in this document.
== END | disposition home or self-care (01) ==
LOC: MTRAD 11:47
PROVIDERS: PCP Family Medicine; Referring Provider Family Medicine; Visit Provider Family Medicine
DX: S22.42XA Multiple fractures of ribs, left side, initial encounter for closed fracture (principal); X58.XXXA Exposure to other specified factors, initial encounter
CPT/HCPCS: 71101

== ENCOUNTER 2025-05-03 14:00 | Outpatient (RCR) | payer MEDICARE, OTHER, SELFPAY ==
--- NOTE | 2025-04-02 15:04 | HP.OTEVAL_ITS ---
Patient's Visit Information Visit Information Visit Information: MYRIAM STEVENS is a 64 year old F, referred to Occupational Therapy by Dr. Jayden Varela, DO, with a diagnosis of Nondisplaced fx of base of 4th and 5th metacarpal bones, L hand. Date of Evaluation: 04/02/25 Occupational Therapist: Darya Coon Subjective Subjective: Pt is a 64 y/o female presenting to this outpatient occupational therapy evaluation due to nondisplaced fxs in 4th and 5th metacarpal in L hand as well as pain in L hand referred by Dr. Varela. Pt reports she was walking on 02/14 and tripped, breaking hand, nose, and a few ribs. She reports removable cast that was d/c'ed 03/27. She is 6 wks, 5 days s/p 4th and 5th metacarpal fx. Pt currently is off work and will return 04/16. She reports she works in [employer] in [employer] and will start with limited use. Pt reports she is R handed and was not driving prior to fall. Pt reports sister lives at home with pt and and has been assisting with IADLs. ADLs Comments: Pt reports pulling pants up and putting bra on are difficult for her. She reports difficulty with dishes as she scrubs with R hand, but has difficulty maintaining hold. Pt reports difficulty with cutting food. Pt reports difficulty with flat ironing hair as she will use thumb, index and ring finger to squeeze flat iron. Pain L hand: Current Pain Intensity: 0 Pain Intensity Range: 0, 1, 2, 3 and 4 ROM MP: I: 90/75, M: 90/70, R: 95/60, P: 100/55 PIP: I: 95/60, M: 95/75, R: 95/40, P: 85/20 DIP: I: 50/40, M: 65/50, R: 65/15, P: 70/30 Strength Data Collection Technician: R: 42 L: NT Lateral Pinch: R: 8 L: 6 Tripod Pinch: R: 10 L: 5 Tip-to-Tip Pinch: R: 6 L: 4 Strength Comments: L Data Collection Technician to be tested at future date Quick DASH-Disab of Arm,Shoulder& Hand Quick DASH Score: 50.0000 Goals Goal:ROM equal to unaffected hand: Yes Goal:Data Collection Technician/Pinch strength at least 75% of unaffected hand: Yes Goal:No pain with affected hand use: Yes Goal:Full use of affected hand in daily activities including work: Yes Rehabilitation General Assessment: Pt is 6 wks, 5 days s/p 4th and 5th metacarpal fx presenting with increased stiffness, decreased ROM, and pain with movement. Rehabilitation Potential: Good Anticipated Interventions Anticipated Interventions: A/AAROM/PROM, Strengthening, Edema Control, Massage, Modalities, Joint Protection/Energy Conservation and ADL Training Visit Plan Frequency: 2-3x /Week Duration: 4-6 Weeks General Plan: Pt is 6 wks, 5 days s/p 4th and 5th metacarpal fx presenting with increased stiffness, decreased ROM, and pain with movement, referred by Dr. Varela for L hand pain following nondisplaced fx of base of 4th and 5th metacarpal. Pt would benefit from outpatient occupational therapy 2-3x/wk for 4- 6 weeks to address ROM, strengthening as able, edema control for improved independence with ADLs/IADLs and work tasks. TEXT: Thank you for the opportunity to evaluate your patient. For Medicare and Medicare HMO plans, please review the plan of care and approve it. It will need to be FAXED BACK to us at [phone] for Medicare purposes. Please let me know if there are questions or concerns regarding this plan of care. Physician Signature: Date:
--- NOTE | 2025-04-18 15:02 | OTREVAL_ITS ---
Re-Evaluation Intro: Dr. Jayden Varela, DO, It has been my pleasure to treat MYRIAM STEVENS over the last 7 visits for Nondisplaced fx of base of 4th and 5th metacarpal bones, L hand. Please see the progress note below for an update on the occupational therapy plan of care! Subjective Subjective: pt arrives to session 8 weeks 6 days out from her fall. Started work today- generally did well. Objective Objective/Function: left MCP ROM RF 80 flexion LF 82 flexion left RF PIP 85 flexion LF PIP 65 flexion pt continues to demo limited composite fist- therapy has transitioned to strengthening at pt tolerates/ place and hold ex. and PROM. pt would benefit from cont. therapy 2x week for 4 weeks to return pts functional use of left hand for ADLs. Plan Plan Frequency: 2-3x /Week Duration: 4-6 Weeks Visits in this POC: 18 Plan: place and hold strengthen to increase use with ADLs Goals Goals Patient Goals: Regain Mobility, Regain Strength, Decrease Pain, Return to Work, Decrease Swelling/Stiffness, Use Hand/Wrist/Arm Normally Again, Increase ROM and Be More Independent in ADLS Goal:ROM equal to unaffected hand: Yes Goal:City Wellness Coordinator/Pinch strength at least 75% of unaffected hand: Yes Goal:No pain with affected hand use: Yes Goal:Full use of affected hand in daily activities including work: Yes Anticipated Interventions Anticipated Interventions Anticipated Interventions: A/AAROM/PROM, Strengthening, Edema Control, Massage, Modalities, Joint Protection/Energy Conservation and ADL Training Re-Evaluation Ending Re-evaluation ending: Please do not hesitate to contact me at [phone] by phone or if you have questions or concerns regarding this new plan of care! Sincerely, Jennifer Armas, RASTAR/L, CHT
--- NOTE | 2025-05-03 14:16 | HP.OTDCSUM_ITS ---
Discharge Summary D/C Summary: It has been my pleasure to treat MYRIAM STEVENS under orders from Dr. Jayden Varela, DO, for the diagnosis of Nondisplaced fx of base of 4th and 5th metacarpal bones, L hand for a total of 15 visit(s). Please see the following information for a summary of their discharge status. Overall Improvement % Improvement: 80 Objective Objective/Function: left 4th digit MCP ROM 0/ 75* 0/75 PIP ROM 0/70* RF 0/90 pt demo with left copy holder strength of 25# pt agrees to D/C with HEP. Goals Patient Goals: Regain Mobility, Regain Strength, Decrease Pain, Return to Work, Decrease Swelling/Stiffness, Use Hand/Wrist/Arm Normally Again, Increase ROM and Be More Independent in ADLS Goal:ROM equal to unaffected hand: Yes Goal Progress: Progressing Goal:Concrete Mixer Operator Helper/Pinch strength at least 75% of unaffected hand: Yes Goal Progress: Progressing Goal:No pain with affected hand use: Yes Goal Progress: Goal Met Goal:Full use of affected hand in daily activities including work: Yes Goal Progress: Goal Met Plan Plan: BTE and light strengthening D/C Information Discharge Comments: pt has met OT goals and will cont. with her HEP to improve her end rage of motion and strength d/c sentence: If there are questions or concerns regarding this patient's occupational therapy, please fell free to call me at [phone]. Thank you for the referral of this patient. Sincerely, Jennifer Armas, OTR/L, CHT
== END 2025-05-03 19:00 | disposition home or self-care (01) ==
LOC: OT 14:00
PROVIDERS: PCP Family Medicine; Referring Provider Student in an Organized Health Care Education/Training Program; Visit Provider Student in an Organized Health Care Education/Training Program
DX: S62.345D Nondisplaced fracture of base of fourth metacarpal bone, left hand, subsequent encounter for fracture with routine healing (principal); S62.347D Nondisplaced fracture of base of fifth metacarpal bone, left hand, subsequent encounter for fracture with routine healing; M79.642 Pain in left hand
CPT/HCPCS: 97035; 97110; 97140; 97166; 97530

== ENCOUNTER → 2025-05-03 | Outpatient (CLI) | payer MEDICARE, OTHER, SELFPAY | END | disposition home or self-care (01) | LOC: LABSPEC 15:02 | PROVIDERS: PCP Family Medicine; Referring Provider Otolaryngology; Visit Provider Otolaryngology | DX: J32.9 Chronic sinusitis, unspecified (principal) | CPT/HCPCS: 87070; 87205 ==

== ENCOUNTER → 2025-06-07 | Outpatient (CLI) | payer MEDICARE, OTHER, SELFPAY | END | disposition home or self-care (01) | LOC: LABSPEC 15:14 | PROVIDERS: PCP Family Medicine; Referring Provider Otolaryngology; Visit Provider Otolaryngology | DX: J32.9 Chronic sinusitis, unspecified (principal) | CPT/HCPCS: 87070; 87077; 87205 ==

== ENCOUNTER → 2025-07-20 | Outpatient (CLI) | payer MEDICARE, OTHER, SELFPAY ==
[2025-07-20 12:31] LABS: Hematocrit 45.4 % (37-47); Hemoglobin 14.9 g/dL (12.0-15.0); Immature Granulocytes Count 0.020 X10^3/uL (0.0-0.0); Mean Corp Hgb Conc 32.8 g/dL (32-36); Mean Corpuscular Volume 93.6 fL (81-99); Mean Platelet Vol. 10.9 fl (6.2-12.0); NRBC Flagged by Analyzer 0 % (0-5); Platelet Count 475 K/mm3 (150-450); RBC Distribution Width CV 12.7 % (11.6-14.6); RBC Distribution Width SD 43.8 fl (35.1-43.9); Red Blood Count 4.85 M/mm3 (4.2-5.4); White Blood Count 7.4 K/mm3 (4.4-11.0)
[2025-07-20 12:52] LABS: AST(SGOT) 36 U/L (<=31); Alanine Aminotransfer ALT/SGPT 14 U/L (<=34); Albumin, Serum 4.2 g/dL (3.4-4.8); Alkaline Phosphatase 54 U/L (35-104); Anion Gap 9 (5-15); BUN 13 mg/dL (4-19); BUN/Creat Ratio 19.5 RATIO (10-20); Calcium,Total 10.1 mg/dL (7.6-11.0); Carbon Dioxide 24.9 mmol/L (21.0-32.0); Chloride 106 mmol/L (98-108); Globulin 3.0 g/dL (2.2-4.2); Glucose 94 mg/dL (70-99); Potassium 4.0 mmol/L (3.3-5.1)
== END | disposition home or self-care (01) ==
LOC: MTLAB 11:09
PROVIDERS: PCP Family Medicine; Referring Provider Family Medicine; Visit Provider Family Medicine
DX: R79.89 Other specified abnormal findings of blood chemistry (principal)
CPT/HCPCS: 36415; 80053; 84443; 85025